=== PATIENT | female | born 1965 | race Caucasian/White ===

== ENCOUNTER 2023-12-31 10:54 | Outpatient (RCR) | payer MEDICAID, SELFPAY ==
--- NOTE | 2023-12-31 14:24 | CTCCONSULT_ITS ---
[facility] [address], [place] [address] Consultation Note Date: 12/31/2023 MR#: [id number] Name: SHEILA LANGE : 1965 Dx: C09.0 Left tonsillar CA. Referring physician. Madie Lopez PA-C [facility] History of Present Illness: Patient is a 58-year-old lady followed by primary care provider at [facility] in [place]. After experiencing throat discomfort and obvious left mass had CT scan 11/09/2023 revealing heterogeneous enhancing node left neck measuring 2.8 x 2.9 x 3.7 cm. There was also soft tissue thickening of the left palatine tonsil measuring 1.6 x 1.3 x 2.5 cm. [place] left tonsil 12/10/2023 revealing HPV associated squamous cell CA. p16 strong and diffuse positive staining. Patient now referred to the cancer [facility] Past Medical History: High blood pressure hypothyroidism history of venereal disease; prior 2 C-secti ons Meds. Atorvastatin levothyroxine lisinopril Allergies none to meds Social history. 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 Family history. Mom had throat and breast cancer and dad had prostate cancer review of review of sys tems has had anxiety easy bruising cold heat intolerance headaches heartburn muscle pain Physical Exam: General: Adequate nourished appearing lady no acute distress HEENT: Atraumatic normocephalic easily visible and palpable tumor left tonsil area approximately 2 x 3 cm. Easily palpable left neck node measuring 3 x 4 cm. No other neck nodes felt in the right neck or supra [place] region. CV: Chest clear to auscultation heart regular rate and rhythm ABD: Soft no organomegaly or tenderness EXT: No cyanosis clubbing or edema. Assessment:1. 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 Although the primary site and the neck mass appears fairly large due to the favorable HPV status this could still be early stage I pending PET scan staging. 3. PET scan for staging 4. Anticipated radiation was discussed generally 7000 cGy to the tumor site using modern VMAT method . Patient has already made contact with dentist about preradiation dental eval. Side effects discus sed. 4. Port for venous access for anticipated chemo. 5. Dr. Antonio, our [facility] medical oncologist to see patient. 6. Patient is in a good nutritional status and G-tube was discussed which she declined for the time being. 7. Thank you very much allowing us to evaluate and manage this patient Cc: Teo Barber PA-C [facility] Electronically signed by: Solomon Mejia MD, DABR 12/31/2023 2:22 PM
--- NOTE | 2024-01-11 08:28 | CTCTXPLN_ITS ---
[facility] [address] [place], [place] [address] Physician Clinical Treatment Planning Note Date of Service: 01/11/2024 Name: SHEILA LANGE : 1965 The patient has agreed to proceed with Radiation therapy. Tests and supporting medical records were interpreted to assist in defining the tumor location and extent of disease. Further imaging will be necessary to contour and delineate the volume to which the XRT will be provided. A. Treatment Intent: Curative B. Modality: 6 MV C. Requested Technique: VMAT D. Treatment Site: Head and neck E. Critical structures to be contoured on plan: F. In order to accomplish this plan, I am ordering/Prescribing the followin. Simulations (s) will be performed to accomplish a reproducible treatment position, to determine op timal treatment portals/beam arrangements, to design beam modifying devices and verify treatment port als on patient prior to the commencement of Radiation Therapy. Head and neck 2. Devices; for immobilization and beam shaping: Vac-Bela 3. CT Guidance for placement of XRT wren Scan area: Head and neck 4. Portal images Frequency: 5. Invivo transit dose measurement once per week on all VMAT patients. 6. Special Physics Consult Requested for: 7. Other requests: Specimens are submitted in chemo and radiation G. Dose Objectives: Curative Electronically signed by: Solomon Mejia M.D. 01/11/2024 8:26 AM
--- NOTE | 2024-01-11 08:30 | CTCTXPLNST_ITS ---
Radiation Oncology Treatment Planning Sheet Name: SHIELA LANGE MR#: [id number] : 1965 Dx: C09.0 Malignant neoplasm of tonsillar fossa Date of Service: 01/11/2024 Account #: ?? Pt Treatment Intent: curative palliative other: Stage: Procedure CPT # Ordered Spec. Procedure 79093 1 Holloway Complex (set-up) 72643 Head and Neck 1 Holloway Simple 85536 IMRT Plan 38998 1 MLC Devices VMAT 78824 3 Holloway 3 D 25070 TRTMT dev Complex 83541 Aqua Plast 1 TRTMT dev simple 40542 Basic Moses 14623 9 Special Dosimetry 77184 Spec Physics 67843 Port Films 67390 SRS Cranial/1FX 56238 SBR 5 FX or Less /ex: 5 = 5 fx 80119 IMRT Simple 63532 7000 35 IMRT Complex 19949 IGRT 89111 33 Rad del com 6-10 99312 Rad del com 11 61934 Cont Med Physics 18142 7 Treatment Planning 67957 1 Rad del com 20 mev 28919 Rad del inter 6-10 55426 Rad del inter 11 76123 Rad del simple 6-10 18197 Rad del simple 11- 55989 Special Port Plan 52339 TRTMT dev inter 58410 Isodose Complex 57137 Isodose simple 42496 Resp Motion Mgmt Simulation 25357 Placement of Fiducial Markers 14559 Electronically Signed By: Solomon Mejia MD, DABR 01/11/2024 8:28 AM
== END 2024-01-16 23:59 | disposition home or self-care (01) ==
LOC: SCTC 10:54
PROVIDERS: PCP Physician Assistant Medical; Referring Provider Physician Assistant Medical; Visit Provider Radiology Therapeutic Radiology
DX: C09.9 Malignant neoplasm of tonsil, unspecified (principal)
CPT/HCPCS: 77470; 99213; G0463

== ENCOUNTER 2024-01-26 05:35 | Day surgery (SDC) | payer MEDICAID, SELFPAY ==
--- NOTE | 2024-01-25 10:01 | EKG_ITS ---
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
[2024-01-25 10:08] VITALS: BMI 35.0
[2024-01-25 11:09] LABS: Basophils # (Auto) 0.1 Thou/mm3 (0.0-0.2); Basophils % (Auto) 1 % (0-2.5); Eosinophils # (Auto) 0.2 Thou/mm3 (0.0-0.5); Eosinophils % (Auto) 2 % (0-10); Hematocrit 44.4 % (36.0-46.0); Hemoglobin 14.9 g/dL (12.0-16.0); Immature Granulocytes % (Auto) 0 % (0-0); Immature Granulocytes Auto 0.05 Thou/mm3 (0.00-0.00); Lymphocytes # (Auto) 3.7 Thou/mm3 (1.0-4.8); Lymphocytes % (Auto) 31 % (10-50); Mean Corpuscular HGB Conc 33.6 g/dl (31.0-37.0); Mean Corpuscular Hemoglobin 30.2 pg (25.0-35.0); Mean Corpuscular Volume 90 fL (80-100); Monocytes % (Auto) 9 % (0-12); Neutrophils # (Auto) 6.9 Thou/mm3 (1.8-7.7); Neutrophils % (Auto) 58 % (37-80); Nucleated Red Blood Cell % 0 /100 WBC (0); Platelet Count 490 Thou/mm3 (140-440); RDW Standard Deviation 40.7 fL (36.4-46.3); Red Blood Count 4.94 Miln/mm3 (4.00-5.20)
[2024-01-25 11:19] LABS: INR 0.9 (0.9-1.3); Partial Thromboplastin Time 26.6 Seconds (22.0-36.0); Prothrombin Time 10.3 Seconds (9.0-12.2)
[2024-01-25 11:22] LABS: Alanine Aminotransferase 30 U/L (10-49); Albumin, Serum 5.2 gm/dL (3.5-5.0); Albumin/Globulin Ratio 1.9 (1.2-2.2); Alkaline Phosphatase 88 U/L (46-116); Anion Gap 9 (7-16); Aspartate Amino Transferase 22 U/L (0-34); BUN/Creatinine Ratio 14 Ratio (12-20); Bilirubin,Total 0.5 mg/dL (0.3-1.2); Blood Urea Nitrogen 11 mg/dL (9-23); Calcium 10.3 mg/dL (8.3-10.6); Calcium (Corrected) 10.3 mg/dL (8.5-10.1); Carbon Dioxide 24.8 mMol/L (20.0-31.0); Chloride 103 mMol/L (98-107); Creatinine (Component) 0.8 mg/dL (0.6-1.3); Estimated Creatinine Clearance 77.5 mL/min (>60); Globulin 2.7 gm/dL (2.3-3.5); Glucose 114 mg/dL (74-106); Osmolality,Calculated 274 (275-295); Potassium 4.5 mMol/L (3.4-5.1); Sodium 137 mMol/L (136-145); Total Protein 7.9 gm/dL (5.7-8.2); eGFR > 60 See Note
--- NOTE | 2024-01-25 15:49 | SUR.PREOP ---
Dr Thompson notified of WBC 12.0, ok to proceed
[2024-01-26] VITALS (7 sets, daily range): BP systolic 117–151; BP diastolic 64–87; PULSE 87–99; RESP 12–18; TEMP 36.3–36.9; O2SAT 96–98; BMI 34.9
--- NOTE | 2024-01-26 07:22 | CHAP ---
Patient seemed very nervous. I spoke with her giving encouragement and comfort and prayer.
--- NOTE | 2024-01-26 07:25 | XR_ITS ---
Examination: AP chest single view Technique one AP portable supine chest single view Exam date and time: January 26, 2024 0908 hours INDICATIONS: Post Port-A-Cath placement FINDINGS: Right subclavian Port-A-Cath tip right atrium satisfactory position No pneumothorax Normal heart size IMPRESSION: Right subclavian Port-A-Cath satisfactory position
--- NOTE | 2024-01-26 09:34 | SUR.PHASEI ---
pt received from OR in recover bay 7. pt asleep but responds to voice, breathing unlabored on room air. v/s stable. pt dressing to right chest cdi. report received from Dr. Carbajal and Helio WEBER.
--- NOTE | 2024-01-26 09:57 | ESOP_ITS ---
Date of Procedure 01/26/24 Pre Op Diagnosis Carcinoma of the tonsils requiring chemotherapy Stricture of veins Post Op Diagnosis Same Procedure Insertion of a Port-A-Cath through the right subclavian vein Findings Patient had a patent subclavian vein which was used for access Procedure Description After the patient was brought to the operating room he was placed in supine position. Site-Rite ultrasound was used to identify the right show swelling subclavian vein and I chose this for insertion of the Port-A-Cath. After the patient's chest and neck were prepped with chloreprep solution and draped I used a mini stick to get into the right subclavian vein. Then I passed a small guidewire measuring 0.018 inch in diameter into the vein. Then this was switched over to a catheter to accommodate larger guidewire measuring 0.035 inches in diameter which was basically a J-wire. Then I used a 9 Belarusian valved vessel dilator over the guidewire which was then pulled out. Then I introduced a 8 Belarusian polyurethane catheter from the [employer] and positioned it on the distal part of the superior vena cava. The catheter tip was about 20 cm from the entry site. An x-ray was obtained to confirm the position of the tip. Then I made a small pocket 5 cm's below the entry site on the left chest below the clavicle to accommodate the port after injecting local anesthesia with 1% Xylocaine. Then I tunneled the polyurethane catheter from the entry site to this pocket in the chest wall and I connected it to low-profile regular port from [facility] profuse using a catheter lock. Excellent blood return was obtained at the end of the procedure and this was flushed with heparinized saline. Then the port was attached to the chest wall muscle using 0 Vicryl sutures. Subcutaneous tissues was closed with 3-0 chromic and the skin by 5-0 nylon stitches. Dressing was applied with Adaptic and 4 x 4 and the patient tolerated the procedure well and left operating room in stable condition. Anesthesia other (General LMA) Pathology / specimen None Estimated Blood Loss 20 Surgeon Renee Corral MD Surgical Staff Operation Date: 01/26/24 08:00 Case Staff Anesthesiologist: Dev Carbajal
--- NOTE | 2024-01-26 10:11 | SUR.PHASEII ---
pt able to tolerate oral fluids without difficulty swallowing or nausea/vomiting.
--- NOTE | 2024-01-26 10:40 | SUR.PHASEII ---
pt awake and alert, breathing unlabored on room air. v/s stable. pt dressing to right chest cdi. pt able to ambulate to wheelchair with steady gait. d/c instructions given with cheri Smith in room, all questions answered. pt d/c via wheelchair with all belongings.
== END 2024-01-26 10:40 | disposition home or self-care (01) ==
PROVIDERS: Family Provider Surgery; PCP Physician Assistant Medical; Referring Provider Surgery; Visit Provider Surgery
PROC: (CPT 36561; principal; 2024-01-26 08:00)
DX: C09.9 Malignant neoplasm of tonsil, unspecified (principal); I87.1 Compression of vein; Z01.810 Encounter for preprocedural cardiovascular examination
CPT/HCPCS: 36561; 36415; 71046; 80053; 85025; 85610; 85730; 93005; A4649; C1788; C1894; J1100; J1643; J2250; J2405; J2704; J3010; J3490; J1644; J1920

== ENCOUNTER → 2024-02-04 | Outpatient (CLI) | payer MEDICAID, SELFPAY | END | disposition home or self-care (01) | PROVIDERS: PCP Physician Assistant Medical; Referring Provider Radiology Therapeutic Radiology; Visit Provider Radiology Therapeutic Radiology | DX: Z53.8 Procedure and treatment not carried out for other reasons (principal) ==

== ENCOUNTER 2024-02-12 10:15 | Outpatient (RCR) | payer MEDICAID, SELFPAY ==
--- NOTE | 2024-01-20 10:25 | CTCCONSULT_ITS ---
[address] [address] RE: SHEILA LANGEO.B.: 1965 AGE: 58 DATE OF CONSULTATION: 01/20/2024 DIAGNOSIS: Malignant neoplasm of tonsillar fossa [ICD10] C09.0 REFERRING PHYSICIAN: Brynn Barber PRIMARY PHYSICIAN : REASON FOR CONSULTATION: New diagnosis of tonsil cancer HISTORY OF PRESENT ILLNESS: Patient is 58-year-old woman who has extensive smoking history. Patient started smoking at the age o f 14 and quit about 20 years ago that is at the age of 39. She was smoking about a pack a day. She endorses at least 2 sexual partners. She also is diagnosed with herpes infection of the vagina area. She has no personal or family history of similar cancer. Her father and mother both had cancers . Her mother had breast cancer and father had prostate cancer. 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 Education Level - Completed High School, Completed High School Marital Status - , Tobacco Pack per Day - 0 Tobacco Use Years - 30, 30 Tobacco Use Note - QUIT SMOKING ETOH Use Note - SOCIAL, OCCASSIONAL SOCIAL DRINKER Drug Note - METH MUSHROOMS LSD, HX METH, LSD, MUSHROOMS USE QUIT YEARS AGO Social History Note 2 - LIVE WITH BROTHER, LIVES WITH BROTHER 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 GI: No nausea, vomiting, diarrhea or constipation. CVS: No palpitations or angina pains. Respiratory: No cough, chest pain or shortness of breath. VITAL SIGNS: Date 01/20/2024 Time 9:31 AM Vital Signs, Weight and PS ? ??T (F) (F) 98.8 ??P 88 ??B/P (mmHg) 140/96 ??Height (in) (inch) 63 ??Weight (lb) (lb) 190 ??BSA(D) (m*2) 1.89 ??Percent Weight Change -1 PHYSICAL EXAMINATION: Conjunctivae is white. Oral cavity is dry. Chest is clear to auscultation. No wheezes or rales audible. CVS: Rhythm regular, no murmurs or gallops present. Abdomen is soft. No hepatosplenomegaly. Extremities: No pedal edema or cyanosis. LABORATORY DATA: Date Time ASSESSMENT: Head and neck cancer Patient has tumor in the tonsils as well as involvement of the left lymph node Not a surgical candidate Patient will need treatment with concurrent chemoradiation Patient's other comorbidities include hypertension dyslipidemia and hypothyroidism. Patient also is obese. Patient do not have major dental problems but have few cavities. Patient already seen dentist and do not need any further workup before radiation. She had decided not to get PEG tube. She is already scheduled for port catheter as well as PET CT scan Patient do not have any hearing problems at the baseline PLAN: ?? High dose cisplatin with concurrent radiation for definitive treatment - Audiometry - Iv fluids - Magnesium oxide 400 mg po daily - - magic mouth wash - RTC before 1 st chemo ORDERS: Comprehensive Metabolic Panel - 12 + CBC with Auto Diff + RETURN TO CLINIC: cc: PCP, Referring: Brynn Barber Electronically Signed 01/20/2024 at 10:22 AM Keo Antonio MD Patient: SHEILA LANGE : 1965 MR#: [id number] Account: [id number] FOLLOW UP NOTE Page 4 of 4
== END 2024-02-16 23:59 | disposition home or self-care (01) ==
LOC: SCTC 10:15
PROVIDERS: PCP Physician Assistant Medical; Referring Provider Physician Assistant Medical; Visit Provider Internal Medicine Hematology & Oncology
DX: C09.0 Malignant neoplasm of tonsillar fossa (principal); I10 Essential (primary) hypertension; E78.5 Hyperlipidemia, unspecified; E03.9 Hypothyroidism, unspecified; E66.9 Obesity, unspecified; Z68.33 Body mass index [BMI] 33.0-33.9, adult; Z87.891 Personal history of nicotine dependence; Z80.3 Family history of malignant neoplasm of breast; Z80.42 Family history of malignant neoplasm of prostate
CPT/HCPCS: 77014; 77290; 77334; 99213; G0463

== ENCOUNTER → 2024-02-18 | Outpatient (CLI) | payer MEDICAID, SELFPAY ==
--- NOTE | 2024-02-18 08:45 | XR_ITS ---
EXAMINATION: PET/CT FUSION SKULL TO THIGH EXAM DATE AND TIME: February 18, 2024 0946 hours INDICATIONS: Diagnosis head and neck cancer diagnosis staging prior to treatment CTDI:vol (mGy) 8.23 DLP: (mGycm) 853.5 PROCEDURE: 15.06 mCi FDG was administered intravenously To allow for distribution and uptake of radiotracer, the patient was allowed to rest quietly in a shielded room. Imaging was performed on an integrated 16-slice PET/CT scanner, with scanning from the skull base to the mid thigh. Serum blood glucose at the time of the injection was measured 122 mg/dL. CT scanning was performed without oral or intravenous contrast material. FINDINGS: Head and Neck: 20 x 22 mm hypermetabolic mass left oropharynx image 60 Hypermetabolic lateral left carotid triangle lymph node mass 30 mm Chest: There is no rachel hypermetabolism in the chest. There are no pulmonary nodules. Abdomen and Pelvis: There is no rachel hypermetabolism in retroperitoneal or pelvic chains. The spleen is normal in size and FDG avidity. Musculoskeletal: Marrow uptake is within normal range. IMPRESSION: 20 x 22 mm hypermetabolic left oropharyngeal mass Hypermetabolic lateral left carotid triangle metastatic lymph node mass, 30 mm
== END | disposition home or self-care (01) ==
PROVIDERS: PCP Physician Assistant Medical; Referring Provider Radiology Therapeutic Radiology; Visit Provider Radiology Therapeutic Radiology
DX: R22.0 Localized swelling, mass and lump, head (principal); C77.9 Secondary and unspecified malignant neoplasm of lymph node, unspecified; C09.0 Malignant neoplasm of tonsillar fossa
CPT/HCPCS: 78815; A9552

== ENCOUNTER 2024-03-16 17:33 | Emergency (ER) | payer MEDICAID, SELFPAY ==
[2024-03-16 18:13] VITALS: BP 116/84; PULSE 120; RESP 18; TEMP 37.3; O2SAT 96; BMI 32.7
--- NOTE | 2024-03-16 18:22 | EKG_ITS ---
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: : 1965 Requested By: Cristobal Bragg Order Number: [id number] Reading MD: Cristobal Bragg Measurements Intervals [place] Rate: 112 P: 65 PA: 136 QRS: 75 QRSD: 88 T: 19 QT: 328 QTc: 448 Interpretive Statements SINUS TACHYCARDIA POSSIBLE RIGHT VENTRICULAR CONDUCTION DELAY [RSR (QR) IN V1/V2] ST DEVIATION AND MODERATE T-WAVE ABNORMALITY, CONSIDER ANTERIOR ISCHEMIA [-0.1+ mV T WAVE IN V3/V4] Compared to ECG 01/25/2024 10:36:56 T-wave abnormality now present Possible ischemia now present Sinus rhythm no longer present Sinus arrhythmia no longer present /store/S0/[id number]/ecg/[id number].pdf
--- NOTE | 2024-03-16 18:23 | PD.EDRME ---
Rapid Medical Screening Exam RME Arrival date/time: 03/16/24 17:33 58F with history of cancer (has port), hypothyroidism, and HTN presents to ED with unexplained tachycardia. Patient had outpatient labs done earlier today with mildly elevated D-dimer and was sent by oncologist to r/o PE. Patient has no complaints. Chief Complaint: General Adult/Misc Complain Vital signs: Vital Signs Temperature 99.2 F 03/16/24 18:13 Pulse Rate 120 H 03/16/24 18:13 Respiratory Rate 18 03/16/24 18:13 Blood Pressure 116/84 03/16/24 18:13 Pulse Oximetry (%) 96 03/16/24 18:13 Oxygen Delivery Method Room Air 03/16/24 18:13
[2024-03-16 19:01] LABS: Collection Type, Urine Clean Catch
[2024-03-16 19:11] LABS: Bacteria,Urine Rare; Bilirubin,Urine Negative (Negative); Blood,Urine Negative (Negative); Clarity,Urine Turbid (Clear/Hazy); Color,Urine Lt-Yellow (Lt Yel-Yel); Culture Indicated,Urine Yes; Glucose, Urine Negative (Negative); Ketones,Urine Trace (Negative); Leukocyte Esterase,Urine Positive (Negative); Nitrite,Urine Negative (Negative); PH,Urine 6.5 (5.0-7.0); Protein,Urine Trace (Neg - Trace); RBC,Urine 1 /hpf (0-3); Specific Gravity,Urine 1.008 (1.001-1.035); Squamous Epithelial Cell,Urine 8 /hpf (0-5); Urobilinogen,Urine Negative mg/dL (0.0-1.0); WBC,Urine 13 /hpf (0-5)
--- NOTE | 2024-03-16 19:51 | XR_ITS ---
Examination: CTA chest with intravenous contrast 2-D reconstructions 3-D reconstructions, vascular Date and time of exam: March 16, 2024 1938 hours INDICATIONS: Diagnosis tonsil carcinoma October 2023 undergoing chemotherapy, onset shortness of breath chest pain today with elevated d-dimer CTDI: vol (mGy) 11.7 DLP: (mGycm) 323 Technique: Multiple axial sections of the thorax have been obtained. 3 mm slice thickness, from below the hemidiaphragms to above the apices of the lungs. Mediastinal and lung density settings have been obtained. 2-D sagittal and coronal reconstructions. 3-D angiographic renderings, 3-D volume renderings, 3D post processing, vascular maximum intensity projections obtained. Contrast administered is 100 cc Isovue-370. Low dose protocols were performed. One or more of the following dose reduction techniques were used; automated exposure control, adjustment of the mA and/or KV according to patient size, use of iterative reconstruction technique. Findings: No thoracic aortic aneurysm dilatation or dissection. Pulmonary artery segments are not enlarged. No pulmonary artery emboli 10 mm pulmonary nodule right lower lobe image 185. No pneumonia or pulmonary edema No visualized liver splenic lesion No gallstones No pancreatic mass Moderate bilateral renal parenchymal scar formation. 4 mm upper pole left renal calculus Moderate thoracic spondylosis IMPRESSION: Negative for pulmonary artery emboli 10 mm pulmonary nodule right lower lobe, with the study as baseline recommend 6 month follow-up CT chest without contrast
[2024-03-16 21:01] LABS: Thyroid Stimulating Hormone 0.65 uIU/mL (0.55-4.78); Troponin I < 0.020 ng/mL (0.0-0.045)
[2024-03-16 21:02] LABS: Amphetamine/Methamp Scrn,U Negative (Negative); Barbiturate Screen,Urine Negative (Negative); Benzodiazepines Screen,Urine Negative (Negative); Benzoylecgonine Screen, Ur Negative (Negative); Fentanyl Screen,Urine Negative (Negative); Opiate Screen,Urine Negative (Negative); THC Screen,Urine Positive (Negative)
[2024-03-16 21:14] LABS: Procalcitonin 0.08 ng/ml (0.0-0.49)
--- NOTE | 2024-03-16 22:13 | PD.EDADULT ---
ED General RME/HPI General Chief complaint: General Adult/Misc Complain Stated complaint: d- dimer 783 ng/ml, r/o dvt, sent by oncologist Time Seen by Provider: 03/16/24 21:54 Arrival date/time: 03/16/24 17:33 RME / HPI RME / HPI narrative: 58F with history of throat cancer (has port), hypothyroidism, and HTN presents to ED with unexplained tachycardia. Patient had outpatient labs done earlier today with mildly elevated D-dimer and was sent by oncologist to r/o PE. Patient has no complaints. No medication was given prior to arrival. Related Data Home Medications ?Medication ?Instructions ?Recorded ?Confirmed atorvastatin 10 mg tablet 10 mg PO QDAY 01/25/24 01/26/24 levothyroxine 150 mcg tablet 150 mcg PO QDAY 01/25/24 01/26/24 lisinopril 30 mg tablet 30 mg PO QDAY 01/25/24 01/26/24 magnesium oxide 420 mg tablet 420 mg PO BID 01/25/24 01/25/24 Allergies Allergy/AdvReac Type Severity Reaction Status Date / Time No Known Allergies Allergy Verified 03/16/24 17:34 Review of Systems Review of Systems Narrative Review of Systems: Review of system reviewed and within normal limits except mentioned in HPI ED Exam Narrative Physical exam: VITAL SIGNS: Reviewed. GENERAL APPEARANCE: Alert and interactive, follows commands, no acute distress, HEAD AND FACE: Non-traumatic. ENT: PERRL, pink conjunctivitis, eyelid no trauma, Mucous membrane moist. NECK: Supple, nontender, no nuchal rigidity. CHEST: No tenderness, no crepitus, no paradoxical movement, no retractions. LUNGS: Clear, well ventilated, symmetric, no rales, no wheezing, no ronchi, no stridor, good breath sounds bilaterally. HEART: Regular rate, regular rhythm, no murmur, no gallops. ABDOMEN: Soft, positive bowel sounds, nondistended, no guarding, nontender, no rebound, no masses, RECTAL: Deferred. GENITAL: Deferred. NEUROLOGICAL: Gross motor function intact sensory function intact, Appropriate for age. MUSCULOSKELETAL: low back nontender, full range of motion. EXTREMITIES: Nontender, full range of motion. SKIN: Color pink, dry, no rash, no lacerations, no abrasions, no contusions. LYMPHATICS: Deferred. Course Quality Measures none Orders Category Date Time Status Bedside COVID-19 Antigen Test NOW Care 03/16/24 18:22 Active Bedside Influenza A&B Antigen Test NOW Care 03/16/24 18:[address] Screening NOW Care 03/16/24 18:22 Active EKG (ED ONLY) *Do not use* NOW Care 03/16/24 18:22 Completed Insert IV NOW Care 03/16/24 19:[address] angio chest Stat Exams 03/16/24 19:51 Completed EKG (ED Only) Stat Exams 03/16/24 18:22 Draft Drug Screen,Urine Stat Lab 03/16/24 18:20 Completed Procalcitonin Stat Lab 03/16/24 18:47 Completed TSH [Thyroid Stimulating Hormone] Stat Lab 03/16/24 18:47 Completed Troponin I Stat Lab 03/16/24 18:47 Completed Urinalysis, C/S if Indicated Stat Lab 03/16/24 18:20 Completed Urine Culture Stat Lab 03/16/24 18:20 Received Vital Signs Vital signs: Vital Signs Temperature 99.2 F 03/16/24 18:13 Pulse Rate 120 H 03/16/24 18:13 Respiratory Rate 18 03/16/24 18:13 Blood Pressure 116/84 03/16/24 18:13 Pulse Oximetry (%) 96 03/16/24 18:13 Oxygen Delivery Method Room Air 03/16/24 18:13 MDM Patient data External records reviewed:: None Clinical information provided by:: patient Social determinants that could affect healthcare access:: none Patient has the following chronic illnesses:: Hypertension, hypothyroidism, history of throat cancer How is presenting disease/condition affected by chronic disease/condition?: no chronic disease Evaluation data The following diagnostics were reviewed and interpreted by me:: lab results, radiology exam(s) and EKG tracing(s) Lab and/or radiology exams considered but not ordered:: None Interpretation Summary: See results in MDM Medications Medications considered but not ordered:: None Medication administrations:: None Consultations Consultation(s) initiated? (list below): No Diagnosis Differential Diagnosis ED Complaint MDM: Tachycardia, PE, elevated D-dimer Most likely diagnosis given after review of the tests above:: Tachycardia Admission Indicated Admission indicated?: not indicated Explain why admission is indicated or not indicated:: Stable Admission Request Was there a request for admission?: No Disposition Plan Disposition Plan: Discharge Discharge Attestation Discharge Attestation: The patient was given an opportunity to ask questions and understood the discharge instructions. Discharge instructions specifically effects, indications for sooner follow up or return to the emergency department, and the expected course of current diagnosis. Patient condition: Stable Medical Decision Making MDM Narrative MDM Narrative: 58F with history of throat cancer (has port), hypothyroidism, and HTN presents to ED with unexplained tachycardia. Patient had outpatient labs done earlier today with mildly elevated D-dimer and was sent by oncologist to r/o PE. Patient has no complaints. No medication was given prior to arrival. Laboratory workup all came back unremarkable except for slightly elevated D-dimer. Patient tested positive for marijuana. Urinalysis is dirty collection. CT of the chest came back with no PE however there is incidental finding of pulmonary nodule. Results discussed with the patient and told her to follow-up closely with PCP or oncologist. Patient agrees with the plan. EKG, showed sinus tachycardia, ventricular rate of 112 bpm, no ST segment elevation depression noted. Differential Diagnosis Differential Diagnosis: Tachycardia, PE, elevated D-dimer Lab Data Labs: Lab Results 03/16/24 03/16/24 Range/Units 18:20 18:47 Troponin I < 0.020 (0.0-0.045) ng/mL Procalcitonin 0.08 (0.0-0.49) ng/ml TSH 0.65 (0.55-4.78) uIU/mL Ur Collection Type Clean Catch Urine Color Lt-Yellow (Lt Yel-Yel) Urine Clarity Turbid A (Clear/Hazy) Urine pH 6.5 (5.0-7.0) Ur Specific [place] 1.008 (1.001-1.035) Urine Protein Trace (Neg - Trace) Urine Glucose (UA) Negative (Negative) Urine Ketones Trace (Negative) Urine Blood Negative (Negative) Urine Nitrite Negative (Negative) Urine Bilirubin Negative (Negative) Urine Urobilinogen (Auto) Negative (0.0-1.0) mg/dL Ur Leukocyte Esterase Positive (Negative) Urine RBC 1 (0-3) /hpf Urine WBC 13 H (0-5) /hpf Ur Squamous Epith Cells 8 H (0-5) /hpf Urine Bacteria Rare (None) Ur Culture Indicated? Yes Urine Opiates Screen Negative (Negative) Urine Fentanyl Screen Negative (Negative) Ur Barbiturates Screen Negative (Negative) U Amphetamin/Meth Scrn Negative (Negative) U Benzodiazepines Scrn Negative (Negative) U Cocaine Metab Screen Negative (Negative) U Marijuana (THC) Screen Positive A (Negative) Discharge Plan Plan Patient Disposition: HOME (Self Care) Disposition Comment: Stable Prescriptions/Referrals Prescriptions/Med Rec: No Action magnesium oxide 420 mg Tablet 420 mg PO BID atorvastatin 10 mg Tablet 10 mg PO QDAY levothyroxine 150 mcg Tablet 150 mcg PO QDAY lisinopril 30 mg Tablet 30 mg PO QDAY Referrals: Brynn Barber PA-C [Primary Care Provider] - In 1 week Problem List Clinical Impression: Tachycardia Patient/Caregiver Discharge Instructions Discharge Activity: activity as tolerated Education Materials: Understanding Tachycardia Additional Instructions: Thank you for the opportunity for serving you today. You are stable for discharged . You are advised to: Follow-up with your PCP in 1 to 2 days and asked for repeat CT scan of the chest after 6 months Return to ED for worsening of symptoms Increase oral fluids Take medication as prescribed Print Language: Turkmen Stand Alone Forms: [facility] Award Info., Patient Portal Info Letter
== END 2024-03-16 22:26 | disposition home or self-care (01) ==
PROVIDERS: Physician Assistant; Emergency Provider Emergency Medicine; PCP Physician Assistant Medical
DX: R00.0 Tachycardia, unspecified (principal); R91.1 Solitary pulmonary nodule; R79.89 Other specified abnormal findings of blood chemistry; I10 Essential (primary) hypertension; Z11.52 Encounter for screening for COVID-19
CPT/HCPCS: 36415; 71275; 80307; 81001; 84145; 84443; 84484; 87086; 87400; 87811; 93005; 99285; A4649; Q9967

== ENCOUNTER 2024-03-18 08:27 | Outpatient (RCR) | payer MEDICAID, SELFPAY ==
[2024-02-26 10:27] LABS: Basophils % (Auto) 1 % (0-2.5); Eosinophils # (Auto) 0.3 Thou/mm3 (0.0-0.5); Eosinophils % (Auto) 3 % (0-10); Hematocrit 37.3 % (36.0-46.0); Hemoglobin 12.7 g/dL (12.0-16.0); Immature Granulocytes % (Auto) 0 % (0-0); Immature Granulocytes Auto 0.02 Thou/mm3 (0.00-0.00); Lymphocytes % (Auto) 36 % (10-50); Mean Corpuscular Hemoglobin 29.8 pg (25.0-35.0); Mean Corpuscular Volume 88 fL (80-100); Monocytes # (Auto) 0.7 Thou/mm3 (0.0-0.8); Monocytes % (Auto) 8 % (0-12); Neutrophils # (Auto) 4.4 Thou/mm3 (1.8-7.7); Neutrophils % (Auto) 52 % (37-80); Nucleated Red Blood Cell % 0 /100 WBC (0); Platelet Count 295 Thou/mm3 (140-440); RDW Standard Deviation 39.9 fL (36.4-46.3); Red Blood Count 4.26 Miln/mm3 (4.00-5.20); White Blood Count 8.5 Thou/mm3 (3.6-11.0)
[2024-02-26 10:49] LABS: Alanine Aminotransferase 19 U/L (10-49); Albumin, Serum 4.5 gm/dL (3.5-5.0); Albumin/Globulin Ratio 1.8 (1.2-2.2); Alkaline Phosphatase 82 U/L (46-116); Anion Gap 8 (7-16); Aspartate Amino Transferase 16 U/L (0-34); BUN/Creatinine Ratio 17 Ratio (12-20); Bilirubin,Total 0.4 mg/dL (0.3-1.2); Blood Urea Nitrogen 12 mg/dL (9-23); Calcium 9.3 mg/dL (8.3-10.6); Calcium (Corrected) 9.3 mg/dL (8.5-10.1); Carbon Dioxide 23.5 mMol/L (20.0-31.0); Chloride 107 mMol/L (98-107); Creatinine (Component) 0.7 mg/dL (0.6-1.3); Globulin 2.5 gm/dL (2.3-3.5); Glucose 105 mg/dL (74-106); Osmolality,Calculated 275 (275-295); Potassium 3.8 mMol/L (3.4-5.1); Sodium 138 mMol/L (136-145); eGFR > 60 See Note
[2024-03-16 16:16] LABS: Basophils % (Auto) 1 % (0-2.5); Eosinophils # (Auto) 0.1 Thou/mm3 (0.0-0.5); Eosinophils % (Auto) 1 % (0-10); Hematocrit 37.1 % (36.0-46.0); Hemoglobin 12.6 g/dL (12.0-16.0); Immature Granulocytes % (Auto) 0 % (0-0); Immature Granulocytes Auto 0.01 Thou/mm3 (0.00-0.00); Lymphocytes # (Auto) 2.1 Thou/mm3 (1.0-4.8); Lymphocytes % (Auto) 28 % (10-50); Mean Corpuscular Hemoglobin 30.2 pg (25.0-35.0); Mean Corpuscular Volume 89 fL (80-100); Monocytes # (Auto) 0.7 Thou/mm3 (0.0-0.8); Monocytes % (Auto) 10 % (0-12); Neutrophils # (Auto) 4.5 Thou/mm3 (1.8-7.7); Neutrophils % (Auto) 61 % (37-80); Nucleated Red Blood Cell % 0 /100 WBC (0); Platelet Count 325 Thou/mm3 (140-440); RDW Standard Deviation 41.7 fL (36.4-46.3); Red Blood Count 4.17 Miln/mm3 (4.00-5.20); White Blood Count 7.4 Thou/mm3 (3.6-11.0)
[2024-03-16 16:33] LABS: D-Dimer 783 ng/mL (<600)
[2024-03-16 16:48] LABS: Alanine Aminotransferase 24 U/L (10-49); Albumin, Serum 4.8 gm/dL (3.5-5.0); Albumin/Globulin Ratio 2.3 (1.2-2.2); Alkaline Phosphatase 83 U/L (46-116); Anion Gap 10 (7-16); Aspartate Amino Transferase 18 U/L (0-34); BUN/Creatinine Ratio 17 Ratio (12-20); Bilirubin,Total 0.4 mg/dL (0.3-1.2); Blood Urea Nitrogen 15 mg/dL (9-23); Calcium 9.5 mg/dL (8.3-10.6); Calcium (Corrected) 9.5 mg/dL (8.5-10.1); Carbon Dioxide 23.2 mMol/L (20.0-31.0); Chloride 103 mMol/L (98-107); Creatinine (Component) 0.9 mg/dL (0.6-1.3); Globulin 2.1 gm/dL (2.3-3.5); Glucose 106 mg/dL (74-106); Osmolality,Calculated 272 (275-295); Potassium 3.8 mMol/L (3.4-5.1); Sodium 136 mMol/L (136-145); Total Protein 6.9 gm/dL (5.7-8.2); eGFR > 60 See Note
[2024-03-18 09:12] LABS: Basophils % (Auto) 1 % (0-2.5); Eosinophils # (Auto) 0.1 Thou/mm3 (0.0-0.5); Eosinophils % (Auto) 2 % (0-10); Hematocrit 34.3 % (36.0-46.0); Hemoglobin 11.6 g/dL (12.0-16.0); Immature Granulocytes % (Auto) 0 % (0-0); Immature Granulocytes Auto 0.01 Thou/mm3 (0.00-0.00); Lymphocytes # (Auto) 1.3 Thou/mm3 (1.0-4.8); Lymphocytes % (Auto) 31 % (10-50); Mean Corpuscular HGB Conc 33.8 g/dl (31.0-37.0); Mean Corpuscular Hemoglobin 30.5 pg (25.0-35.0); Mean Corpuscular Volume 90 fL (80-100); Monocytes # (Auto) 0.5 Thou/mm3 (0.0-0.8); Monocytes % (Auto) 11 % (0-12); Neutrophils # (Auto) 2.3 Thou/mm3 (1.8-7.7); Neutrophils % (Auto) 55 % (37-80); Nucleated Red Blood Cell % 0 /100 WBC (0); Platelet Count 280 Thou/mm3 (140-440); RDW Standard Deviation 41.9 fL (36.4-46.3); White Blood Count 4.1 Thou/mm3 (3.6-11.0)
[2024-03-18 09:39] LABS: Magnesium 1.8 mg/dL (1.6-2.6)
[2024-03-18 09:43] LABS: Alanine Aminotransferase 21 U/L (10-49); Albumin, Serum 4.2 gm/dL (3.5-5.0); Albumin/Globulin Ratio 1.8 (1.2-2.2); Alkaline Phosphatase 73 U/L (46-116); Anion Gap 9 (7-16); Aspartate Amino Transferase 17 U/L (0-34); BUN/Creatinine Ratio 13 Ratio (12-20); Bilirubin,Total 0.5 mg/dL (0.3-1.2); Blood Urea Nitrogen 10 mg/dL (9-23); Calcium 9.1 mg/dL (8.3-10.6); Calcium (Corrected) 9.1 mg/dL (8.5-10.1); Carbon Dioxide 23.9 mMol/L (20.0-31.0); Chloride 109 mMol/L (98-107); Creatinine (Component) 0.8 mg/dL (0.6-1.3); Globulin 2.3 gm/dL (2.3-3.5); Glucose 98 mg/dL (74-106); Osmolality,Calculated 282 (275-295); Potassium 3.5 mMol/L (3.4-5.1); Sodium 142 mMol/L (136-145); Total Protein 6.5 gm/dL (5.7-8.2); eGFR > 60 See Note
--- NOTE | 2024-03-20 21:29 | CTCFLWUP_ITS ---
Patient: SHEILA LANGE : 1965 Page 3 of 5 FOLLOW UP NOTE DATE OF SERVICE: 03/16/2024 NAME: SHEILA LANGE ACCOUNT: [id number] : 1965 AGE: 58 INTERVAL HISTORY: Patient is here getting radiation. Patient is feeling very fatigued and tired. Denies any shortness of breath. Patient had hearing test which was mild hearing loss. 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 30 mm TREATMENT HISTORY: Care?Plan Start?Date Cycle Day Intent CISplatin?100mg/m*2?with?XRT 02/29/2024 1 21 Curative?(primary) HISTORY OF PRESENT ILLNESS: Patient is 58-year-old woman who has extensive smoking history. Patient started smoking at the age of 14 and quit about 20 years ago that is at the age of 39. She was smoking about a pack a day. She endorses at least 2 sexual partners. She also is diagnosed with herpes infection of the vagina area. She has no personal or family history of similar cancer. Her father and mother both had cancers . Her mother had breast cancer and father had prostate cancer. 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 Advil - 600 mg 2. atorvastatin - 10 mg Daily 3. levothyroxine - 150 mcg/24 h Daily 4. lisinopril - 30 mg Daily 5. traZODone - 100 mg tab Medications Last Reconciled by Sonia Figueroa MA on 03/16/2024 ALLERGIES: No Known Drug Allergies REVIEW OF SYSTEMS: A complete 14-point review of systems was performed and is negative except as noted in interval history. PHYSICAL EXAMINATION: VITAL SIGNS: Temperature?98.8, B/P?131/85, Oxygen?Saturation?98% Weight?179.8?lbs (Change?since?03/14/24:?-5.2?lbs) PAIN: 0 - No pain ECOG Performance Status: 1 - Symptomatic; ambulatory; restricted in strenuous activity GENERAL APPEARANCE: Appears well, in no apparent distress, appropriately interactive. HEENT: Normocephalic, no temporal wasting, normal conjunctiva, no scleral icterus, normal hearing, lips without lesions, neck normal range of motion. CARDIOVASCULAR: Not assessed. PULMONARY: Normal respiratory effort, no respiratory distress or use of accessory muscles, speaking in full sentences, no tachypnea. EXTREMITIES: No pedal edema or cyanosis. SKIN: Normal skin appearance. NEUROLOGIC: Alert and oriented x4. PSHYCHIATRIC: Appropriate affect, mood normal, behavior normal, intact thought and speech. LABORATORY DATA: I have personally reviewed and interpreted each of the patient?s relevant lab tests, abnormal findings are below: Date 03/18/24 ??WHITE?BLOOD?COUNT?(Thou/mm3) 4.1 ??RED?BLOOD?COUNT?(Miln/mm3) 3.80?L ??HEMOGLOBIN?(gm/dl) 11.6?L ??HEMATOCRIT?(%) 34.3?L ??PLATELET?COUNT?(Thou/mm3) 280 ??NEUTROPHILS?%,?AUTO?(%) 55 ??LYMPH?%,?AUTO?(%) 31 ??NEUTROPHILS,?AUTO?(Thou/mm3) 2.3 ASSESSMENT/PLAN: Head and neck cancer Patient has tumor in the tonsils as well as involvement of the left lymph node Not a surgical candidate Patient on concurrent chemoradiation Patient found to be very tachycardic - Reviewed audiometry and shows mild to moderate hearing loss - Will give IV fluids and order D-dimer - D-dimer is found to be elevated at 783. Patient was seen in the ER and had CT angiogram which did not show any blood clots - Will continue IV fluids with radiation - Magnesium oxide 400 mg po daily - - magic mouth wash CBC CMP D-dimer RETURN TO CLINIC: 2 to 4 weeks BILLING AND COMPLIANCE: I reviewed external records from providers outside my specialty as summarized above. I spent a total of 50 minutes on this patient?s care on the day of their visit excluding time spent related to any billed procedures. This time includes time spent with the patient as well as time spent documenting in the medical record, reviewing patients records and tests, obtaining history, placing orders, communicating with other healthcare professionals, counseling the patient, family or caregiver, and/or care coordination for the diagnoses above. Electronically Signed by: Keo Antonio MD T: 9:26 PM CC: PCP: Brynn Barber Referring: Brynn Barber This document was completed utilizing speech recognition software. Grammatical errors, random word insertions, pronoun errors, and incomplete sentences are an occasional consequence of this system due to software limitations, ambient noise, and hardware issues. Any formal questions or concerns about the content, text or information contained within the body of this dictation should be directly addressed to the provider for clarification.
== END 2024-03-18 23:59 | disposition home or self-care (01) ==
LOC: SCTC 08:27
PROVIDERS: PCP Physician Assistant Medical; Referring Provider Physician Assistant Medical; Visit Provider Internal Medicine Hematology & Oncology
DX: Z51.11 Encounter for antineoplastic chemotherapy (principal); C09.9 Malignant neoplasm of tonsil, unspecified; K12.33 Oral mucositis (ulcerative) due to radiation; Y84.2 Radiological procedure and radiotherapy as the cause of abnormal reaction of the patient, or of later complication, without mention of misadventure at the time of the procedure; R00.0 Tachycardia, unspecified; H91.90 Unspecified hearing loss, unspecified ear; R79.1 Abnormal coagulation profile
CPT/HCPCS: 36591; 77300; 77301; 77336; 77338; 77385; 80053; 83735; 85025; 85379; 96360; 96367; 96368; 96375; 96413; 96415; 99212; A4216; J1100; J1200; J1453; J1642; J1940; J2405; J3475; J3480; J3490; J7030; J7040; J7050; J9060; G0463

== ENCOUNTER 2024-04-15 07:55 | Outpatient (RCR) | payer MEDICAID, SELFPAY ==
--- NOTE | 2024-03-21 08:46 | CTCTRTNOTE_ITS ---
[facility] [address] [place], [place] [address] Weekly Management Date: 03/21/2024 ?? Name: SHEILA LANGE : 1965 A. Patient is currently at 1755 cGy. B. Patient was on rest last week due to mucositis symptoms. C. Patient is feeling better this a.m ready to resume XRT with chemo.. D. Weight 180.2 116/81 blood pressure pulse 107 patient given following medications: . Minimal mucositis noted in the mouth today. E. . F. Resume radiation therapy. Patient has about 4 more weeks of radiation left. Electronically signed by: Solomon Mejia M.D. 03/21/2024 8:43 AM
--- NOTE | 2024-03-28 12:28 | CTCTRTNOTE_ITS ---
[facility] [address] [place], [place] [address] Weekly Management Date: 03/28/2024 ?? Name: SHEILA LANGE : 1965 A. Patient is currently at 2730cGy. Getting concurrent cisplatin. Last chemo dose 03/21/2024. Last radiation treatment Thursday. B. Last labs 03/18/2024 WBC 4.1 hemoglobin 11.6 platelets 2 80,000. C. Unable to be seen or treated today because of complaints of difficulty swallowing and mucositis symptoms.. Reportedly will go to ER for possible admission. Electronically signed by: Solomon Mejia M.D. 03/28/2024 12:25 PM
[2024-04-08 09:25] LABS: Basophils % (Auto) 0 % (0-2.5); Eosinophils # (Auto) 0.1 Thou/mm3 (0.0-0.5); Eosinophils % (Auto) 5 % (0-10); Hematocrit 31.7 % (36.0-46.0); Hemoglobin 11.3 g/dL (12.0-16.0); Immature Granulocytes % (Auto) 0 % (0-0); Immature Granulocytes Auto 0.01 Thou/mm3 (0.00-0.00); Lymphocytes # (Auto) 0.8 Thou/mm3 (1.0-4.8); Lymphocytes % (Auto) 31 % (10-50); Mean Corpuscular HGB Conc 35.6 g/dl (31.0-37.0); Mean Corpuscular Hemoglobin 31.5 pg (25.0-35.0); Mean Corpuscular Volume 88 fL (80-100); Monocytes # (Auto) 0.4 Thou/mm3 (0.0-0.8); Monocytes % (Auto) 14 % (0-12); Neutrophils # (Auto) 1.3 Thou/mm3 (1.8-7.7); Neutrophils % (Auto) 50 % (37-80); Nucleated Red Blood Cell % 0 /100 WBC (0); Platelet Count 230 Thou/mm3 (140-440); RDW Standard Deviation 43.7 fL (36.4-46.3); Red Blood Count 3.59 Miln/mm3 (4.00-5.20)
[2024-04-08 09:41] LABS: White Blood Count 2.6 Thou/mm3 (3.6-11.0)
[2024-04-08 09:44] LABS: Alanine Aminotransferase 27 U/L (10-49); Albumin, Serum 4.3 gm/dL (3.5-5.0); Alkaline Phosphatase 80 U/L (46-116); Anion Gap 11 (7-16); Aspartate Amino Transferase 23 U/L (0-34); BUN/Creatinine Ratio 11 Ratio (12-20); Bilirubin,Total 0.5 mg/dL (0.3-1.2); Blood Urea Nitrogen 13 mg/dL (9-23); Calcium 9.4 mg/dL (8.3-10.6); Calcium (Corrected) 9.4 mg/dL (8.5-10.1); Carbon Dioxide 21.4 mMol/L (20.0-31.0); Chloride 109 mMol/L (98-107); Creatinine (Component) 1.2 mg/dL (0.6-1.3); Globulin 2.2 gm/dL (2.3-3.5); Glucose 109 mg/dL (74-106); Magnesium 1.6 mg/dL (1.6-2.6); Osmolality,Calculated 282 (275-295); Sodium 141 mMol/L (136-145); Total Protein 6.5 gm/dL (5.7-8.2); eGFR 52 See Note
[2024-04-11 08:46] LABS: Basophils % (Auto) 1 % (0-2.5); Eosinophils # (Auto) 0.1 Thou/mm3 (0.0-0.5); Eosinophils % (Auto) 4 % (0-10); Hemoglobin 11.1 g/dL (12.0-16.0); Immature Granulocytes % (Auto) 0 % (0-0); Immature Granulocytes Auto 0.01 Thou/mm3 (0.00-0.00); Lymphocytes # (Auto) 0.9 Thou/mm3 (1.0-4.8); Lymphocytes % (Auto) 37 % (10-50); Mean Corpuscular HGB Conc 34.7 g/dl (31.0-37.0); Mean Corpuscular Hemoglobin 30.7 pg (25.0-35.0); Mean Corpuscular Volume 89 fL (80-100); Monocytes # (Auto) 0.4 Thou/mm3 (0.0-0.8); Monocytes % (Auto) 17 % (0-12); Neutrophils # (Auto) 0.9 Thou/mm3 (1.8-7.7); Neutrophils % (Auto) 40 % (37-80); Nucleated Red Blood Cell % 0 /100 WBC (0); Platelet Count 252 Thou/mm3 (140-440); RDW Standard Deviation 45.9 fL (36.4-46.3); Red Blood Count 3.61 Miln/mm3 (4.00-5.20)
[2024-04-11 08:55] LABS: White Blood Count 2.3 Thou/mm3 (3.6-11.0)
[2024-04-11 15:26] LABS: Path Review Blood Smear Sent to Pathologist
[2024-04-15 08:56] LABS: Basophils % (Auto) 1 % (0-2.5); Eosinophils # (Auto) 0.1 Thou/mm3 (0.0-0.5); Eosinophils % (Auto) 2 % (0-10); Hematocrit 31.7 % (36.0-46.0); Hemoglobin 10.8 g/dL (12.0-16.0); Immature Granulocytes % (Auto) 0 % (0-0); Immature Granulocytes Auto 0.01 Thou/mm3 (0.00-0.00); Lymphocytes # (Auto) 1.1 Thou/mm3 (1.0-4.8); Lymphocytes % (Auto) 29 % (10-50); Mean Corpuscular HGB Conc 34.1 g/dl (31.0-37.0); Mean Corpuscular Hemoglobin 31.5 pg (25.0-35.0); Mean Corpuscular Volume 92 fL (80-100); Monocytes # (Auto) 0.5 Thou/mm3 (0.0-0.8); Monocytes % (Auto) 14 % (0-12); Neutrophils % (Auto) 53 % (37-80); Nucleated Red Blood Cell % 0 /100 WBC (0); Platelet Count 225 Thou/mm3 (140-440); RDW Standard Deviation 51.8 fL (36.4-46.3); Red Blood Count 3.43 Miln/mm3 (4.00-5.20); White Blood Count 3.8 Thou/mm3 (3.6-11.0)
[2024-04-15 09:21] LABS: Alanine Aminotransferase 24 U/L (10-49); Albumin, Serum 4.4 gm/dL (3.5-5.0); Albumin/Globulin Ratio 2.2 (1.2-2.2); Alkaline Phosphatase 80 U/L (46-116); Anion Gap 11 (7-16); Aspartate Amino Transferase 27 U/L (0-34); BUN/Creatinine Ratio 9 Ratio (12-20); Bilirubin,Total 0.5 mg/dL (0.3-1.2); Blood Urea Nitrogen 9 mg/dL (9-23); Calcium 9.8 mg/dL (8.3-10.6); Calcium (Corrected) 9.8 mg/dL (8.5-10.1); Carbon Dioxide 22.2 mMol/L (20.0-31.0); Chloride 109 mMol/L (98-107); Glucose 98 mg/dL (74-106); Magnesium 1.8 mg/dL (1.6-2.6); Osmolality,Calculated 281 (275-295); Potassium 4.3 mMol/L (3.4-5.1); Sodium 142 mMol/L (136-145); Total Protein 6.4 gm/dL (5.7-8.2); eGFR > 60 See Note
== END 2024-04-15 23:59 | disposition home or self-care (01) ==
LOC: SCTC 07:55
PROVIDERS: PCP Physician Assistant Medical; Referring Provider Internal Medicine Hematology & Oncology; Visit Provider Internal Medicine Hematology & Oncology
DX: Z51.11 Encounter for antineoplastic chemotherapy (principal); Z51.0 Encounter for antineoplastic radiation therapy; C09.9 Malignant neoplasm of tonsil, unspecified; K12.33 Oral mucositis (ulcerative) due to radiation; Y84.2 Radiological procedure and radiotherapy as the cause of abnormal reaction of the patient, or of later complication, without mention of misadventure at the time of the procedure
CPT/HCPCS: 36591; 77336; 77385; 80053; 83735; 85025; 96360; 96367; 96368; 96375; 96413; 96415; A4216; J1100; J1453; J1642; J1940; J2405; J3475; J3480; J3490; J7030; J7040; J7050; J9060; A9270

== ENCOUNTER 2024-04-23 14:52 | Inpatient (IN) | payer MEDICAID, SELFPAY ==
[2024-04-23 14:57] VITALS: BP 138/84; PULSE 99; RESP 18; TEMP 36.8; O2SAT 99
--- NOTE | 2024-04-23 15:02 | EDNOTE_ITS ---
Nausea/Vomit./Diarrhea-RME/HPI General Chief complaint: Nausea/Vomiting/Diarrhea Stated complaint: N/V Time Seen by Provider: 04/23/24 15:01 Arrival date/time: 04/23/24 14:52 RME / HPI RME / HPI Narrative: DR. WASHBURN MAIN ED EVALUATION: 58 year old female with past medical history significant for throat cancer followed by Dr. Mejia, last radiation on 04/18/2024, presents to the Emergency Department [facility] with complaints of nausea, vomiting, and decreased appetite onset 4 days. Symptoms are moderate. Associated symptoms include generalized weakness and intermittent chest pain in the location she gets radiation, no pain now and states pain is mild. She also reports decreased urination but no dysuria or other urinary symptoms. Last blood pressure per EMS was 200/120. No other symptoms reported at this time. Related Data Home Medications ?Medication ?Instructions ?Recorded ?Confirmed atorvastatin 10 mg tablet 10 mg PO QDAY 01/25/2401/25 levothyroxine 150 mcg tablet 150 mcg PO QDAY 01/25/24 01/26/24 lisinopril 30 mg tablet 30 mg PO QDAY 01/25/2401/25 magnesium oxide 420 mg tablet 420 mg PO BID 01/25/24 1 03/27/23 Allergies Allergy/AdvReac Type Severity Reaction Status Date / Time No Known Allergies Allergy Verified 03/16/24 17:34 Review of Systems Review of Systems Systems Reviewed: All systems reviewed, normal except as documented Narrative Review of Systems: GEN: No fever, no chills, + decreased appetite EYES: No discharge, no visual changes, no pain HEENT: No ear pain, no congestion, no sore throat PULM: No shortness of breath, no cough, no congestion CV: + mild intermittent chest pain (see HPI), no dyspnea on exertion, no palpitations GI: + nausea, + vomiting, no diarrhea, no pain, no constipation : + decreased urination; no frequency, no urgency and no dysuria MUSC/SKEL: No joint pain, no back pain SKIN: No rash PSYCH: No hallucinations, no depression HEME/LYMPH: No easy bleeding or bruising tendencies NEURO: + generalized weakness, no headache Past Medical History Past Medical History CARDIAC: Positive Hypercholesterolemia and Hypertension GASTROINTESTINAL: Positive Gastrointestinal Disorders and Obesity REPRODUCTIVE: Positive Previous Pregnancies (2) MUSCULOSKELETAL: Positive Musculoskeletal Disorders and Arthritis ENDOCRINE: Positive Endocrine Disorders and Hypothyroidism PSYCHO/SOCIAL: Positive Depression (no meds) and Anxiety OTHER HISTORY: Positive Hospitalization (surgery) and Cancer (tonsils) Family History FAMILY HISTORY: Positive Family Cancer and Family Surgery Surgical History SURGICAL: Positive Section (2) Social History SMOKING STATUS: Former smoker SUBSTANCE USE: does not use ALCOHOL: Never ED Exam Narrative Physical exam: GENERAL APPEARANCE: alert and oriented x 4, well-developed, well-nourished, no acute distress VITALS: All vitals were reviewed and the pulse ox is 99% on room air, which is normal according to my interpretation. HEENT: Normocephalic, atraumatic; pupils equal, round, reactive to light; EOMI; mucous membranes pink, moist; oropharynx clear NECK: Supple LUNGS: CTABL; no wheezes, no rales, no rhonchi HEART: Regular rate, regular rhythm; normal S1, S2; no murmurs ABDOMEN: non distended; normal BS; soft, no tenderness, no guarding, no rebound; no masses, no organomegaly, no hernia BACK: no CVA tenderness EXTREMITIES: atraumatic; no edema NEUROLOGIC: awake; alert and oriented x4; cranial nerves II-XII grossly intact; no focal sensory or motor deficits PSYCHIATRIC: appropriate mood and affect SKIN: warm, dry, normal color; no rashes Course Quality Measures none Orders Category Date Time Status CBC Stat Lab 04/23/24 15:20 Completed CMP [Comprehensive Metabolic Panel] Stat Lab 04/23/24 15:20 Completed Lipase Stat Lab 04/23/24 15:20 Completed Troponin I Stat Lab 04/23/24 15:20 Completed UA, C/S IF [Urinalysis, C/S if Indicated] Stat Lab 04/23/24 15:11 Ordered Ondansetron Inj [Zofran Inj] Med 04/23/24 15:34 Discontinued 4 mg IV X1 ONE Sodium Chloride 0.9% 1000 ml [Ns] 1,000 ml Med 04/23/24 15:11 Discontinued IV 999 mls/hr Vital Signs Vital signs: Vital Signs Temperature 98.3 F 04/23/24 14:57 Pulse Rate 99 04/23/24 14:57 Respiratory Rate 18 04/23/24 14:57 Blood Pressure 138/84 H 04/23/24 14:57 Pulse Oximetry (%) 99 04/23/24 14:57 Oxygen Delivery Method Room Air 04/23/24 14:57 Nausea/Vomiting/Diarrhea MDM Narrative MDM Narrative:: I, Charo Lowery, am scribing for and in the presence of Dr. Washburn. Patient data External records reviewed:: [facility] previous records (Reviewed radiation oncology note by Dr. Mejia, dated 04/18/24.) and EMS form Clinical information provided by:: patient and EMS Social determinants that could affect healthcare access:: none Patient has the following chronic illnesses:: Throat cancer followed by Dr. Mejia, last radiation on 04/18/2024. How is presenting disease/condition affected by chronic disease/condition?: exacerbated by Evaluation data The following diagnostics were reviewed and interpreted by me:: lab results Lab and/or radiology exams considered but not ordered:: none Interpretation Summary: Dehydration and Acute kidney injury Pertinent labs include: creatinine 3.2 BUN 38 Medications / Prescriptions Medications / Prescriptions considered but not ordered:: none Medication administrations:: Medication Administration History Discontinued Medications Sodium Chloride (Ns) 1,000 mls @ 999 mls/hr IV .Q1H1M ONE Stop: 04/23/24 16:11 Last Admin: 04/23/24 15:41 Dose: 999 mls/hr Documented By: WILLIS Ondansetron HCl (Ondansetron Inj 2 Mg/Ml Inj 2 Ml) 4 mg IV X1 ONE Stop: 04/23/24 15:35 Last Admin: 04/23/24 15:38 Dose: 4 mg Documented By: WILLIS see above if any Consultations Consultation(s) initiated? (list below): Yes Consultation #1 (Physician, Specialty, Details): Discussed test HPI, PMHx, lab, radiology results and/or management with hospitalist. Will admit for further evaluation and management. Accepts patient for admission. Time: 16:45 Diagnosis Nausea Differential Diagnosis: gastroenteritis, dehydration and other (cancer, radiation side effects, electrolyte imbalance) Most likely diagnosis given after review of the tests above:: Dehydration [place] kidney injury Admission Indicated Admission indicated?: indicated Admission Request Was there a request for admission?: Yes Admission Attestation Admission request attestation: Discussed case with [] from Hospitalist service regarding admission. Discussed patients ED course, exam findings, labs, and radiology results. The Hospitalist [agrees,declines] to accept the patient for admission. Disposition Plan Disposition Plan: Admit Discharge Plan Plan Patient Disposition: Admit Acute Care w/in Hospital Prescriptions/Referrals Prescriptions/Med Rec: No Action magnesium oxide 420 mg Tablet 420 mg PO BID atorvastatin 10 mg Tablet 10 mg PO QDAY levothyroxine 150 mcg Tablet 150 mcg PO QDAY lisinopril 30 mg Tablet 30 mg PO QDAY Problem List Clinical Impression: Dehydration, Acute kidney injury Patient/Caregiver Discharge Instructions Print Language: Irish Stand Alone Forms: Meaghan Award Info., Patient Portal Info Letter
[2024-04-23 15:11] VITALS: BP 163/100; PULSE 104; RESP 15; TEMP 36.7; O2SAT 98
[2024-04-23 15:17] VITALS: PULSE 109; RESP 18; O2SAT 96; BMI 30.2
[2024-04-23] MEDS: ONDANSETRON INJ 2 MG/ML INJ 2 ML 4 MG IV (15:38)
[2024-04-23] MEDS: SODIUM CHLORIDE 0.9% 1000 ML 1,000 ML 999 ML IV (15:41)
[2024-04-23 15:58] LABS: Basophils % (Auto) 0 % (0-2.5); Eosinophils % (Auto) 0 % (0-10); Hematocrit 30.1 % (36.0-46.0); Hemoglobin 10.9 g/dL (12.0-16.0); Immature Granulocytes % (Auto) 0 % (0-0); Immature Granulocytes Auto 0.02 Thou/mm3 (0.00-0.00); Lymphocytes % (Auto) 15 % (10-50); Mean Corpuscular HGB Conc 36.2 g/dl (31.0-37.0); Mean Corpuscular Hemoglobin 31.4 pg (25.0-35.0); Mean Corpuscular Volume 87 fL (80-100); Monocytes # (Auto) 0.5 Thou/mm3 (0.0-0.8); Monocytes % (Auto) 7 % (0-12); Neutrophils # (Auto) 5.3 Thou/mm3 (1.8-7.7); Neutrophils % (Auto) 77 % (37-80); Nucleated Red Blood Cell % 0 /100 WBC (0); Platelet Count 210 Thou/mm3 (140-440); RDW Standard Deviation 47.6 fL (36.4-46.3); Red Blood Count 3.47 Miln/mm3 (4.00-5.20); White Blood Count 6.8 Thou/mm3 (3.6-11.0)
[2024-04-23 16:17] LABS: Alanine Aminotransferase 54 U/L (10-49); Albumin, Serum 4.2 gm/dL (3.5-5.0); Alkaline Phosphatase 79 U/L (46-116); Anion Gap 13 (7-16); Aspartate Amino Transferase 36 U/L (0-34); BUN/Creatinine Ratio 12 Ratio (12-20); Bilirubin,Total 0.5 mg/dL (0.3-1.2); Blood Urea Nitrogen 38 mg/dL (9-23); Calcium 8.6 mg/dL (8.3-10.6); Calcium (Corrected) 8.6 mg/dL (8.5-10.1); Carbon Dioxide 20.8 mMol/L (20.0-31.0); Chloride 102 mMol/L (98-107); Creatinine (Component) 3.2 mg/dL (0.6-1.3); Estimated Creatinine Clearance 17.9 mL/min (>60); Globulin 2.1 gm/dL (2.3-3.5); Glucose 104 mg/dL (74-106); Lipase 43 U/L (12-53); Osmolality,Calculated 280 (275-295); Potassium 3.9 mMol/L (3.4-5.1); Sodium 136 mMol/L (136-145); Total Protein 6.3 gm/dL (5.7-8.2); Troponin I < 0.020 ng/mL (0.0-0.045); eGFR 16 See Note
[2024-04-23 16:24] VITALS: BP 120/65; PULSE 86; RESP 18; TEMP 36.7; O2SAT 100
--- NOTE | 2024-04-23 17:54 | PD.RESHP ---
Documentation for date of: 04/23/24 HPI History of Present Illness Chief complaint: Nausea and vomiting History of present illness: 58 y/o F with PMHx significant for hypertension, hypothyroidism, tonsillar cancer receiving active treatment with radiation and chemotherapy with Dr. Mejia presents to ED from home with chief complaint of nausea vomiting with poor p.o. intake x 4 days. Patient reports that she started radiation/chemotherapy 9 weeks ago, she initially had some nausea and vomiting but improved. Despite that she has had poor p.o. intake for the past couple months, with difficulty swallowing solid foods. Approximately 4 days ago she developed increased nausea and vomiting anytime she tends to eat leading to decreased p.o. intake. This prompted visit to ED. Patient denies fever, chills, shortness of breath, chest pain, abdominal pain, dysuria. ED COURSE: Lab significant for: WBC 6.8, BUN 38, creatinine 2.2, EGFR 16, U tox positive for marijuana. Urinalysis showed positive leukocyte esterase, 13 WBCs, rare bacteria, 8 epithelial cells. Imaging not performed. Patient received 1 L bolus normal saline, Zofran in the ED. Admitted for MARTIN secondary to dehydration. PMH: Hypertension, hypothyroidism, tonsillar cancer PSH: 2 C-sections. Septal deviation repair. SH: Patient has 15?88-[id number]-ibit history, quit smoking 20 years ago. Patient has stopped drinking alcohol several years ago. Patient denies all illicit drug use except for THC beverages. FH: Dad: Prostate cancer. Mother: Throat cancer, breast cancer. Allergies:?NKDA Medications: Levothyroxine, atorvastatin, lisinopril Review of Systems Review of Systems Systems Reviewed: All systems reviewed, normal except as documented Past Medical History Past Medical History Comments PMH COMMENT: PMH: Hypertension, hypothyroidism, tonsillar cancer PSH: 2 C-sections. Septal deviation repair. SH: Patient has 15?83-obps-mesg history, quit smoking 20 years ago. Patient has stopped drinking alcohol several years ago. Patient denies all illicit drug use except for THC beverages. FH: Dad: Prostate cancer. Mother: Throat cancer, breast cancer. Allergies:?NKDA Medications: Levothyroxine, atorvastatin, lisinopril Exam Vital Signs Temp Pulse Resp BP Pulse Ox O2 Del Method 98.1 F 86 18 120/65 100 Room Air 04/23/24 16:24 04/23/24 16:24 04/23/24 16:24 04/23/24 16:24 04/23/24 16:24 04/23/24 16:24 Narrative Exam PE: Gen: Well-developed and well-nourished. HEENT: NCAT, PERRLA, EOMI, anicteric conjunctivae. Dry mucous membranes. CVS: normal S1 and S2. RRR. No M/R/G. Resp: CTA B/L. No rhonchi, rales, crackles or wheezing. Abd: soft, non-tender, non-distended. MSK: Good ROM in BUE & BLE. No edema or rash. Neuro: CN II-XII grossly intact. Strength 5/5 in BUE & BLE. Alert and oriented x3. Psych: appropriate mood and affect. Results: Labs 04/24/24 05:42 04/24/24 05:42 Labs: Short CBC 04/23/24 Range/Units 15:20 WBC 6.8 (3.6-11.0) Thou/mm3 Hgb 10.9 L (12.0-16.0) g/dL Hct 30.1 L (36.0-46.0) % Plt Count 210 (140-440) Thou/mm3 BMP 04/23/24 15:20 Sodium 136 Potassium 3.9 D Chloride 102 Carbon Dioxide 20.8 BUN 38 H Creatinine 3.2 H Glucose 104 Calcium 8.6 Cardiac Enzymes 04/23/24 Range/Units 15:20 Troponin I < 0.020 (0.0-0.045) ng/mL Liver Function 04/23/24 Range/Units 15:20 Total Bilirubin 0.5 (0.3-1.2) mg/dL AST 36 H (0-34) U/L ALT 54 H (10-49) U/L Alkaline Phosphatase 79 (46-116) U/L Albumin 4.2 (3.5-5.0) gm/dL Quality Measures Quality Measures VTE prophylaxis Medications Home Medications and Allergies Home Medications ?Medication ?Instructions ?Recorded ?Confirmed ?Type atorvastatin 10 mg tablet 10 mg PO QDAY 01/25/24 04/23/24 History levothyroxine 150 mcg tablet 150 mcg PO QDAY 01/25/24 04/23/24 History lisinopril 30 mg tablet 30 mg PO QDAY 01/25/24 04/23/24 History magnesium oxide 420 mg tablet 420 mg PO BID 01/25/24 04/23/24 History potassium chloride 20 mEq 20 meq PO DAILY 04/23/24 04/23/24 History tablet,extended release trazodone 100 mg tablet 100 mg PO DAILY PRN insomnia 04/23/24 04/23/24 History Allergies Allergy/AdvReac Type Severity Reaction Status Date / Time No Known Allergies Allergy Verified 03/16/24 17:34 Visit Medications Acetaminophen (Acetaminophen 325 Mg Tablet) 650 mg PO Q6H PRN PRN Reason: Fever >100.4 or pain Stop: 05/23/24 17:42 Hydrocodone Bitart/Acetaminophen (Hydrocodone/Apap 5/325 Tablet) 1 tab PO Q4HR PRN PRN Reason: PAIN SCALE 4-10(Mod-Sev Stop: 04/28/24 17:42 Atorvastatin Calcium (Atorvastatin Calcium 10 Mg Tablet) 10 mg PO QDAY SARA Stop: 05/24/24 08:59 Heparin Sodium (Porcine) (Heparin Sod Inj 5000 Unit/Ml Vial) 5,000 unit SC BID SARA Stop: 05/07/24 20:59 Sodium Chloride (Ns) 1,000 mls @ 75 mls/hr IV .[id number] SARA Stop: 04/24/24 20:24 Levothyroxine Sodium (Levothyroxine Sodium 25 Mcg Tablet) 150 mcg PO QDAY SARA Stop: 04/23/24 18:01 Levothyroxine Sodium 125 mcg/ (Levothyroxine Sodium 25 mcg) 150 mcg PO ACBR SARA Stop: 05/24/24 05:59 Ondansetron HCl (Ondansetron Inj 2 Mg/Ml Inj 2 Ml) 4 mg IV Q6H PRN; Protocol PRN Reason: NAUSEA OR VOMITING Stop: 05/23/24 17:42 Discontinued Medications Sodium Chloride (Ns) 1,000 mls @ 999 mls/hr IV .Q1H1M ONE Stop: 04/23/24 16:11 Last Infusion: 04/23/24 16:55 Dose: Infused Levothyroxine Sodium 125 mcg/ (Levothyroxine Sodium 25 mcg) 150 mcg PO ACBR SARA Stop: 05/23/24 17:59 Ondansetron HCl (Ondansetron Inj 2 Mg/Ml Inj 2 Ml) 4 mg IV X1 ONE Stop: 04/23/24 15:35 Last Admin: 04/23/24 15:38 Dose: 4 mg Assessment & Plan Plan 58 y/o F with PMHx significant for hypertension, hypothyroidism, tonsillar cancer receiving active treatment with radiation and chemotherapy with Dr. Mejia presents to ED from home with chief complaint of nausea vomiting with poor p.o. intake x 4 days, admitted for prerenal MARTIN secondary to dehydration. #Acute renal failure secondary to dehydration #Intractable nausea/vomiting Patient presented with chief complaint of nausea and vomiting with poor p.o. intake x 4 days. On admission patient had MARTIN: BUN 38, creatinine 2.2, EGFR 16. Likely secondary to radiation/chemotherapy treatment for tonsillar cancer. Urinalysis shows potential UTI, likely contaminated, culture pending. Patient received 1 L bolus normal saline in the ED. -IVF: Normal saline at 75 mL/h x 2 L -Daily labs -Renally dose medications -Avoid nephrotoxins -Encourage oral hydration -Zofran 4 mg IV every 6 hours as needed for nausea -Renal ultrasound ordered, follow-up -Follow-up urine culture #Tonsillar cancer, active treatments radiation/chemotherapy Patient is receiving treatment radiation/chemotherapy with Dr. Mejia for tonsillar cancer. Patient reports fatigue for past 9 months since treatments began. Patient also reports she has had increased difficulty eating her usual food, in addition to poor appetite she has had some difficulty swallowing and prefers softer foods. Patient does express intermittent pain with dry mouth. -Clear liquid diet -Speech therapy eval, follow-up -Magic mouthwash daily as needed for dry mouth/pain #Suspected depression Patient expressed feelings of anxiety and hopelessness since diagnosis, along with decreased interest in activities. Has not been formally evaluated for this. -Consider PHQ-9 -Follow-up outpatient #Hypertension Patient history as stated. Takes lisinopril at home -Holding home lisinopril due to MARTIN #Hypothyroidism Patient history as stated. Takes levothyroxine at home. -Resume home meds: Levothyroxine 150 mcg p.o. daily DVT prophylaxis: Heparin GI prophylaxis: None Diet: Clear liquid diet Lines: Peripheral IV Code status: Full code Plan of care discussed with attending Dr. Herman. Truong Eaton MD PGY?1 Attending Provider Attestation/Addendum Mita Martinez, DO, attest that I was physically present for the flores portions of the service and evaluated the patient with the resident and I reviewed and discussed the case with the resident and agree with the resident's findings and plans of care as documented above Patient is a 58 year old female with PmHx of hypertension, hypothyroidism, tonsillar cancer receiving active treatment with radiation and chemotherapy who presented to the ED due to worsening fatigue and poor PO intake. Patient has been having intractable nausea and vomiting. She reports being unable to tolerate water even. She is noted to have acute renal failure, likely due to prerenal azotemia. Will admit patient to med/surg for further management of acute renal failure and intractable N/V. She reports occasional pain in her mouth and dry mouth, likely 2/2 radiation mucositis. Will order magic mouthwash as needed. Will start IV fluids and antiemetics as needed. Patient states that oncology had previously discussed PEG tube in the past if she is unable to eat. She is agreeable if she is unable to meet her nutritional demands. Will have ST see patient and advance diet as tolerated. If patient continues to have poor PO intake, will consider consulting GI for possible PEG tube placement. She otherwise denies any fevers, chills, shortness of breath, chest pain or abdominal pain.
[2024-04-23] MEDS: LEVOTHYROXINE SODIUM 25 MCG TABLET 150 MCG PO (18:12)
[2024-04-23] MEDS: SODIUM CHLORIDE 0.9% 1000 ML 1,000 ML 75 ML IV (18:13)
[2024-04-23 18:17] VITALS: BP 151/87; PULSE 93; RESP 14; TEMP 36.8; O2SAT 97
[2024-04-23 18:19] LABS: Collection Type, Urine Clean Catch
[2024-04-23 18:31] LABS: Bilirubin,Urine Negative (Negative); Blood,Urine Trace (Negative); Clarity,Urine Clear (Clear/Hazy); Color,Urine Lt-Yellow (Lt Yel-Yel); Culture Indicated,Urine Not Indicated; Glucose, Urine Trace (Negative); Ketones,Urine 1+ (Negative); Leukocyte Esterase,Urine Negative (Negative); Nitrite,Urine Negative (Negative); Protein,Urine 2+ (Neg - Trace); RBC,Urine 3 /hpf (0-3); Specific Gravity,Urine 1.015 (1.001-1.035); Squamous Epithelial Cell,Urine 2 /hpf (0-5); Urobilinogen,Urine Negative mg/dL (0.0-1.0); WBC,Urine 6 /hpf (0-5)
--- NOTE | 2024-04-23 19:08 | PC.NURSE ---
Received Handoff report from ER at 18:37. Pt arrived on the floor at 18:50.
[2024-04-23 19:30] VITALS: BMI 31.1
[2024-04-23 20:00] VITALS: BP 149/87; PULSE 90; RESP 17; TEMP 37.1; O2SAT 98
[2024-04-23] MEDS: HEPARIN SOD INJ 5000 UNIT/ML VIAL SC (21:29)
[2024-04-24] VITALS (8 sets, daily range): BP systolic 145–166; BP diastolic 80–97; PULSE 90–97; RESP 16–19; TEMP 36.1–36.8; O2SAT 94–99
--- NOTE | 2024-04-24 | XR_ITS ---
Examination: Retroperitoneal ultrasound, complete Technique: Multiple high resolution grayscale images of the retroperitoneum obtained, including kidneys and bladder. Exam date and time:May 04, 2024 0022 hrs. Indications: Acute renal insufficiency Findings: Right kidney 9.0 cm renal cortex 1.1 cm Left kidney 11.0 cm cortex 1.6 cm Mild bilateral renal parenchymal scar formation No hydronephrosis Contracted urinary bladder Impression: Small right kidney with renal cortical thinning Mild bilateral renal parenchymal scar formation
--- NOTE | 2024-04-24 03:17 | PRELIM_ITS ---
Renal/Retroperitoneal ultrasound. April 24, 2024 0025 hours Clinical history: Acute kidney injury. Technique: Duplex scan of the bilateral renal arterial and venous tree was performed utilizing 2D grayscale imaging, Doppler spectral analysis and color flow. Comparison: None Findings: There is slightly increased echogenicity of both kidneys which may indicate medical renal disease. Right: The right kidney measures 9 cm in length. There is no hydronephrosis or renal calculus. The corticomedullary differentiation is maintained. Left: The left kidney measures 11 cm in length. There is no hydronephrosis or renal calculus. The corticomedullary differentiation is maintained. The urinary bladder is unremarkable. Urinary bladder only contains trace amount of fluid, 1 mL. Patient unable to void. No ureteral jets visualized. Impression: Possible medical renal disease. No renal mass, calculus or hydronephrosis. Report Electronically Signed By: Eliecer Meyers 04/24/2024 3:17:01 AM [EST]
[2024-04-24] MEDS: LEVOTHYROXINE SODIUM 125 MCG, LEVOTHYROXINE SODIUM 25 MCG 150 MCG PO (05:40)
[2024-04-24 06:32] LABS: Basophils % (Auto) 1 % (0-2.5); Eosinophils % (Auto) 0 % (0-10); Hematocrit 25.8 % (36.0-46.0); Hemoglobin 9.4 g/dL (12.0-16.0); Immature Granulocytes % (Auto) 0 % (0-0); Immature Granulocytes Auto 0.01 Thou/mm3 (0.00-0.00); Lymphocytes # (Auto) 0.9 Thou/mm3 (1.0-4.8); Lymphocytes % (Auto) 21 % (10-50); Mean Corpuscular HGB Conc 36.4 g/dl (31.0-37.0); Mean Corpuscular Volume 88 fL (80-100); Monocytes # (Auto) 0.4 Thou/mm3 (0.0-0.8); Monocytes % (Auto) 9 % (0-12); Neutrophils # (Auto) 2.9 Thou/mm3 (1.8-7.7); Neutrophils % (Auto) 69 % (37-80); Nucleated Red Blood Cell % 0 /100 WBC (0); Platelet Count 134 Thou/mm3 (140-440); RDW Standard Deviation 48.4 fL (36.4-46.3); Red Blood Count 2.94 Miln/mm3 (4.00-5.20); White Blood Count 4.3 Thou/mm3 (3.6-11.0)
[2024-04-24 06:35] LABS: Alanine Aminotransferase 38 U/L (10-49); Albumin, Serum 3.5 gm/dL (3.5-5.0); Albumin/Globulin Ratio 1.9 (1.2-2.2); Alkaline Phosphatase 63 U/L (46-116); Anion Gap 9 (7-16); Aspartate Amino Transferase 23 U/L (0-34); BUN/Creatinine Ratio 12 Ratio (12-20); Bilirubin,Total 0.3 mg/dL (0.3-1.2); Blood Urea Nitrogen 37 mg/dL (9-23); Calcium 7.7 mg/dL (8.3-10.6); Calcium (Corrected) 8.1 mg/dL (8.5-10.1); Carbon Dioxide 21.1 mMol/L (20.0-31.0); Chloride 107 mMol/L (98-107); Estimated Creatinine Clearance 19.4 mL/min (>60); Globulin 1.8 gm/dL (2.3-3.5); Glucose 84 mg/dL (74-106); Magnesium 1.4 mg/dL (1.6-2.6); Osmolality,Calculated 281 (275-295); Phosphorous 3.6 mg/dL (2.4-5.1); Potassium 3.5 mMol/L (3.4-5.1); Sodium 137 mMol/L (136-145); Total Protein 5.3 gm/dL (5.7-8.2); eGFR 17 See Note
[2024-04-24] MEDS: SODIUM CHLORIDE 0.9% 1000 ML 1,000 ML 75 ML IV (08:40)
[2024-04-24] MEDS: ATORVASTATIN CALCIUM 10 MG TABLET PO (08:40)
[2024-04-24] MEDS: HEPARIN SOD INJ 5000 UNIT/ML VIAL SC ×2 (08:41→20:25)
[2024-04-24] MEDS: Magnesium Sulfate 4 GM Ivpb 4 GM/50 ML BAG IV (09:25)
--- NOTE | 2024-04-24 11:24 | PCS.ST ---
d2/thin. recommend RD CONSULT. see swallow report for additional details.
--- NOTE | 2024-04-24 11:32 | PC.SS ---
Patient is alert/oriented. She was able to verify demographics. Patient states she's independent with ADL's. Admitted for nausea and vomiting. Patient states prior to hospitalization she was independent with ADL's. Patient states she was not using any DME. Patient was following with the [facility] under the care of Dr. Mejia and Dr. Reyes. She sttes she completed chemo and is currently on radiation. She ststes she hs 14 more sessions remaining. Her last appt. was last week. Patient states prior to hospitalization she was driving herself to appointments. PCP: [facility] in [place], Dr. Brynn Barber. Last appt. was 2 months ago. Pharmacy: [facility]. Her alt medical decision maker: prince Baptisteer,
--- NOTE | 2024-04-24 12:02 | ESPR_ITS ---
Documentation for date of: 04/24/24 Subjective Subjective Interval history: Patient seen and examined at bedside. Patient states that she is nauseous. Patient blood pressure has been relatively high, 140s to 160s over 80s to 90s. Will start amlodipine 10 mg daily and lieu of patient's MARTIN. Will continue with IV fluids. Renal ultrasound showed small right kidney with renal cortical thinning with mild bilateral renal parenchymal scar. Pending urine cultures. Speech therapy saw patient, and recommended dysphagia [address] Morgan following. Exam Vital Signs Temp Pulse Resp BP Pulse Ox O2 Del Method 97.1 F 92 17 164/97 H 99 Room Air 04/24/24 07:58 04/24/24 07:58 04/24/24 07:58 04/24/24 07:58 04/24/24 07:58 04/24/24 07:58 Narrative Exam General Appearance: Pt in mild acute distress laying in bed. HEENT: NC/AT, no scleral icterus, no conjunctival pallor, dry mucous membranes Lungs: CTAB, no wheezes or crackles appreciated CVS: RRR, S1/S2 heard, no murmurs or rubs appreciated ABD: Soft, non-tender, non-distended, BS + in all 4 quadrants EXT: no deformity/edema/lesions/cyanosis/clubbing, radial pulses 2+ BL, DP pulses 2 + BL SKIN: Skin exam normal without any rashes. Neuro: A&O x 3. No gross neurological deficits. Motor and sensory grossly intact in B/L UL and LL. Psych: Appropriate mood and affect Objective Labs 04/25/24 05:15 04/25/24 05:15 Labs: Laboratory Results - last 24 hr 04/23/24 04/23/24 04/24/24 15:20 17:33 05:42 WBC 6.8 4.3 RBC 3.47 L 2.94 L Hgb 10.9 L 9.4 L Hct 30.1 L 25.8 L MCV 87 88 MCH 31.4 32.0 MCHC 36.2 36.4 RDW Std Deviation 47.6 H 48.4 H Plt Count 210 134 L D Neut % (Auto) 77 69 Lymph % (Auto) 15 21 Irwin % (Auto) 7 9 Eos % (Auto) 0 0 Baso % (Auto) 0 1 Neut # (Auto) 5.3 2.9 Lymph # (Auto) 1.0 0.9 L Irwin # (Auto) 0.5 0.4 Eos # (Auto) 0.0 0.0 Baso # (Auto) 0.0 0.0 Immature Gran # (Auto) 0.02 H 0.01 H Absolute Nucleated RBC 0.00 0.00 Immature Gran % 0 0 Nucleated RBC % 0 0 Sodium 136 137 Potassium 3.9 D 3.5 Chloride 102 107 Carbon Dioxide 20.8 21.1 Anion Gap 13 9 BUN 38 H 37 H Creatinine 3.2 H 3.0 H Estim Creat Clear Calc 17.9 L 19.4 L eGFR 16 L 17 L BUN/Creatinine Ratio 12 12 Glucose 104 84 Calculated Osmolality 280 281 Calcium 8.6 7.7 L Corrected Calcium 8.6 8.1 L Phosphorus 3.6 Magnesium 1.4 L Total Bilirubin 0.5 0.3 AST 36 H 23 ALT 54 H 38 Alkaline Phosphatase 79 63 D Troponin I < 0.020 Total Protein 6.3 5.3 L Albumin 4.2 3.5 D Globulin 2.1 L 1.8 L Albumin/Globulin Ratio 2.0 1.9 Lipase 43 Ur Collection Type Clean Catch Urine Color Lt-Yellow Urine Clarity Clear Urine pH 6.0 Ur Specific [place] 1.015 Urine Protein 2+ A Urine Glucose (UA) Trace Urine Ketones 1+ A Urine Blood Trace Urine Nitrite Negative Urine Bilirubin Negative Urine Urobilinogen (Auto) Negative Ur Leukocyte Esterase Negative Urine RBC 3 Urine WBC 6 H Ur Squamous Epith Cells 2 Urine Bacteria None Ur Culture Indicated? Not Indicated Quality Measures Quality Measures VTE prophylaxis Assessment & Plan Assessment Current Active Medications: Generic Name Dose Route Start Last Admin Trade Name Brandy PRN Reason Stop Dose Admin Acetaminophen 650 mg 04/24/24 11:31 Acetaminophen 325 Mg Tablet PO 05/23/24 17:42 Q6H PRN Fever >100.4 or pain (1-3) Hydrocodone Bitart/Acetaminophen 1 tab 04/23/24 17:43 Hydrocodone/Apap 5/325 Tablet PO 04/28/24 17:42 Q4HR PRN PAIN SCALE 4-10(Mod-Sev Atorvastatin Calcium 10 mg 04/24/24 09:00 04/24/24 08:40 Atorvastatin Calcium 10 Mg Tablet PO 05/24/24 08:59 10 mg QDAY SARA Administration Lidocaine HCl 10 ml/ 0 ml 04/23/24 18:21 Diphenhydramine HCl 25 mg/ Al PO 04/30/24 18:12 Hydrox/Mg Hydrox/Simethicone Q8HR PRN 30 ml/ Nystatin 10 ml Dry Mouth Heparin Sodium (Porcine) 5,000 unit 04/23/24 21:00 04/24/24 08:41 Heparin Sod Inj 5000 Unit/Ml Vial SC 05/07/24 20:59 5,000 unit BID SARA Administration Sodium Chloride 1,000 mls @ 75 mls/hr 04/23/24 17:45 04/24/24 08:40 Ns IV 04/24/24 20:24 75 mls/hr .[id number] SARA Administration Magnesium Sulfate 4 gm in 50 mls @ 12.5 mls/hr 04/24/24 08:45 04/24/24 09:25 Magnesium Sulfate Ivpb IV 04/24/24 12:44 12.5 mls/hr X1 ONE Administration Levothyroxine Sodium 125 mcg/ 150 mcg 04/24/24 06:00 04/24/24 05:40 Levothyroxine Sodium 25 mcg PO 05/24/24 05:59 150 mcg ACBR SARA Administration Ondansetron HCl 4 mg 04/23/24 17:43 Ondansetron Inj 2 Mg/Ml Inj 2 Ml IV 05/23/24 17:42 Q6H PRN NAUSEA OR VOMITING Protocol Plan 58 y/o F with PMHx significant for hypertension, hypothyroidism, tonsillar cancer receiving active treatment with radiation and chemotherapy with Dr. Mejia presents to ED from home with chief complaint of nausea vomiting with poor p.o. intake x 4 days, admitted for prerenal MARTIN secondary to dehydration. #Acute renal failure secondary to dehydration #Intractable nausea/vomiting Patient presented with chief complaint of nausea and vomiting with poor p.o. intake x 4 days. On admission patient had MARTIN: BUN 38, creatinine 2.2, EGFR 16. Likely secondary to radiation/chemotherapy treatment for tonsillar cancer. Urinalysis shows potential UTI, likely contaminated, culture pending. Patient received 1 L bolus normal saline in the ED. -IVF: Normal saline at 75 mL/h -Daily labs -Renally dose medications -Avoid nephrotoxins -Encourage oral hydration -Zofran 4 mg IV every 6 hours as needed for nausea -Renal ultrasound ordered, follow-up -Follow-up urine culture #Tonsillar cancer, active treatments radiation/chemotherapy Patient is receiving treatment radiation/chemotherapy with Dr. Mejia for tonsillar cancer. Patient reports fatigue for past 9 months since treatments began. Patient also reports she has had increased difficulty eating her usual food, in addition to poor appetite she has had some difficulty swallowing and prefers softer foods. Patient does express intermittent pain with dry mouth. -Clear liquid diet -Speech therapy eval, follow-up -Magic mouthwash daily as needed for dry mouth/pain -Consult Dr. Mejia, appreciate further recommendations #Suspected depression Patient expressed feelings of anxiety and hopelessness since diagnosis, along with decreased interest in activities. Has not been formally evaluated for this. -Consider PHQ-9 -Follow-up outpatient #Hypertension Patient history as stated. Takes lisinopril at home -Holding home lisinopril due to MARTIN -Started Amlodipine 10mg #Hypothyroidism Patient history as stated. Takes levothyroxine at home. -Resume home meds: Levothyroxine 150 mcg p.o. daily Health maintenance: DVT prophylaxis: Heparin GI prophylaxis: None Diet: Clear liquid diet Lines: Peripheral IV Code status: Full code Patient's plan and care discussed with my attending, Dr. Virgil Rivas MD PGY-2 Attending Provider Attestation/Addendum I, Mita Herman, DO, attest that I was physically present for the flores portions of the service and evaluated the patient with the resident and I reviewed and discussed the case with the resident and agree with the resident's findings and plans of care as documented above Patient seen and evaluated this a.m. She states that she was able to drink water, but was unable to tolerate eating any fruit. Patient was evaluated by the speech therapist this morning and had diet advanced to dysphagia 2. Patient continues to consume plaint of nausea, but denies any vomiting. Renal function slightly improved from 3.2 creatinine to 3.0. Will continue with IV fluid hydration in the meantime. Will consult oncology for further recommendations. No acute events overnight otherwise. Will start amlodipine due to hypertension and hold patient's home lisinopril due to acute renal failure. Patient otherwise denies any shortness of breath, chest pain, fever, chills, abdominal pain, dysuria, melena or hematochezia
[2024-04-24] MEDS: amLODIPine BESYLATE 5 MG TABLET 10 MG PO (17:28)
[2024-04-24] MEDS: ONDANSETRON INJ 2 MG/ML INJ 2 ML 4 MG IV (21:19)
[2024-04-25] VITALS (7 sets, daily range): BP systolic 128–146; BP diastolic 62–85; PULSE 88–102; RESP 16–19; TEMP 36–36.2; O2SAT 97–100; BMI 31.3
[2024-04-25] MEDS: LEVOTHYROXINE SODIUM 125 MCG, LEVOTHYROXINE SODIUM 25 MCG 150 MCG PO (05:50)
[2024-04-25 06:18] LABS: Basophils % (Auto) 0 % (0-2.5); Eosinophils % (Auto) 0 % (0-10); Hematocrit 27.1 % (36.0-46.0); Immature Granulocytes % (Auto) 1 % (0-0); Immature Granulocytes Auto 0.03 Thou/mm3 (0.00-0.00); Lymphocytes # (Auto) 0.8 Thou/mm3 (1.0-4.8); Lymphocytes % (Auto) 17 % (10-50); Mean Corpuscular HGB Conc 36.9 g/dl (31.0-37.0); Mean Corpuscular Hemoglobin 31.8 pg (25.0-35.0); Mean Corpuscular Volume 86 fL (80-100); Monocytes # (Auto) 0.5 Thou/mm3 (0.0-0.8); Monocytes % (Auto) 10 % (0-12); Neutrophils # (Auto) 3.2 Thou/mm3 (1.8-7.7); Neutrophils % (Auto) 71 % (37-80); Nucleated Red Blood Cell % 0 /100 WBC (0); Platelet Count 137 Thou/mm3 (140-440); RDW Standard Deviation 47.4 fL (36.4-46.3); Red Blood Count 3.14 Miln/mm3 (4.00-5.20); White Blood Count 4.6 Thou/mm3 (3.6-11.0)
[2024-04-25 06:34] LABS: Alanine Aminotransferase 33 U/L (10-49); Albumin, Serum 3.7 gm/dL (3.5-5.0); Albumin/Globulin Ratio 1.9 (1.2-2.2); Alkaline Phosphatase 64 U/L (46-116); Anion Gap 13 (7-16); Aspartate Amino Transferase 24 U/L (0-34); BUN/Creatinine Ratio 12 Ratio (12-20); Bilirubin,Total 0.4 mg/dL (0.3-1.2); Blood Urea Nitrogen 30 mg/dL (9-23); Calcium 7.8 mg/dL (8.3-10.6); Carbon Dioxide 18.6 mMol/L (20.0-31.0); Chloride 105 mMol/L (98-107); Creatinine (Component) 2.5 mg/dL (0.6-1.3); Estimated Creatinine Clearance 23.3 mL/min (>60); Glucose 91 mg/dL (74-106); Osmolality,Calculated 280 (275-295); Sodium 137 mMol/L (136-145); Total Protein 5.7 gm/dL (5.7-8.2); eGFR 22 See Note
[2024-04-25 06:41] LABS: Potassium 2.7 mMol/L (3.4-5.1)
--- NOTE | 2024-04-25 06:44 | PC.NURSE ---
Potassium level 2.7, Dr. Ibanez was made aware. to put in an order.
[2024-04-25] MEDS: POTASSIUM CHLORIDE 10% 20 MEQ/15 ML UDC 40 MEQ PO (10:10)
[2024-04-25] MEDS: amLODIPine BESYLATE 5 MG TABLET 10 MG PO (10:10)
[2024-04-25] MEDS: POTASSIUM CHL 10 mEq IVPB 10 MEQ/100 ML BAG 100 MEQ IV ×4 (10:11→14:36)
[2024-04-25] MEDS: Magnesium Sulfate 4 GM Ivpb 4 GM/50 ML BAG IV (10:11)
--- NOTE | 2024-04-25 10:12 | PD.ONCCONS ---
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 Patient developed increasing nausea vomiting symptoms and came to ER 04/23/2024 with symptoms of dehydration and acute kidney injury. BUN 38 creatinine 3.2 EGFR 16. On 04/15/2024 these numbers were normal. Blood pressure was also noted to be fairly high and was started on antihypertensives along with IV fluids and electrolyte correction. Patient referred for oncological consultation. 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 Past Medical History Comments PMH COMMENT: Hypertension recent discovery of left tonsillar cancer. Meds Home Medications and Allergies Home Medications ?Medication ?Instructions ?Recorded ?Confirmed ?Type atorvastatin 10 mg tablet 10 mg PO QDAY 01/25/24 04/23/24 History levothyroxine 150 mcg tablet 150 mcg PO QDAY 01/25/24 04/23/24 History lisinopril 30 mg tablet 30 mg PO QDAY 01/25/24 04/23/24 History magnesium oxide 420 mg tablet 420 mg PO BID 01/25/24 04/23/24 History potassium chloride 20 mEq 20 meq PO DAILY 04/23/24 04/23/24 History tablet,extended release trazodone 100 mg tablet 100 mg PO DAILY PRN insomnia 04/23/24 04/23/24 History Allergies Allergy/AdvReac Type Severity Reaction Status Date / Time No Known Allergies Allergy Verified 03/16/24 17:34 Exam Vital Signs Temp Pulse Resp BP Pulse Ox O2 Del Method 97.0 F 102 H 18 129/84 97 Room Air 04/25/24 08:00 04/25/24 10:10 04/25/24 08:00 04/25/24 10:10 04/25/24 08:00 04/25/24 08:00 Narrative Exam Appearing comfortable this a.m. Results Labs 04/25/24 05:15 04/25/24 05:15 Labs: Short CBC 04/25/24 Range/Units 05:15 WBC 4.6 (3.6-11.0) Thou/mm3 Hgb 10.0 L (12.0-16.0) g/dL Hct 27.1 L (36.0-46.0) % Plt Count 137 L (140-440) Thou/mm3 BMP 04/25/24 05:15 Sodium 137 Potassium 2.7 L* D Chloride 105 Carbon Dioxide 18.6 L BUN 30 H Creatinine 2.5 H D Glucose 91 Calcium 7.8 L Liver Function 04/25/24 Range/Units 05:15 Total Bilirubin 0.4 (0.3-1.2) mg/dL AST 24 (0-34) U/L ALT 33 (10-49) U/L Alkaline Phosphatase 64 (46-116) U/L Albumin 3.7 (3.5-5.0) gm/dL Assessment and Plan Additional Assessment & Plan Additional Plan: 1. 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 2. Admitted with nausea vomiting dehydration acute kidney injury. 3. Appears to be improving clinically with hydration BP control and other supportive measures. I will see patient upon discharge to continue cancer treatments. Patient has about 2 additional weeks of chemoradiation remaining.
[2024-04-25] MEDS: HEPARIN SOD INJ 5000 UNIT/ML VIAL SC ×2 (10:13→20:27)
--- NOTE | 2024-04-25 11:25 | PC.SS ---
Rounding: Pending Dr. Mejia reccs
[2024-04-25] MEDS: ONDANSETRON INJ 2 MG/ML INJ 2 ML 4 MG IV ×2 (11:39→23:25)
[2024-04-25 14:36] LABS: Anion Gap 13 (7-16); BUN/Creatinine Ratio 10 Ratio (12-20); Blood Urea Nitrogen 26 mg/dL (9-23); Calcium 7.9 mg/dL (8.3-10.6); Carbon Dioxide 19.3 mMol/L (20.0-31.0); Chloride 102 mMol/L (98-107); Creatinine (Component) 2.5 mg/dL (0.6-1.3); Estimated Creatinine Clearance 23.3 mL/min (>60); Glucose 111 mg/dL (74-106); Osmolality,Calculated 273 (275-295); Potassium 3.5 mMol/L (3.4-5.1); Sodium 134 mMol/L (136-145); eGFR 22 See Note
--- NOTE | 2024-04-25 16:30 | ESPR_ITS ---
<Statement entered by Elena Rivas MD - 04/25/24 18:20> Patient seen and examined at bedside. No acute overnight events reported. Patient has not had any lunch or dinner yesterday. Patient is frustrated that patient has not been able to keep most of her food down, due to increased nausea/vomiting. Patient would like to have PEG tube placement to improve her nutrition and strength. Will place a consult with Dr. Morgan, GI for placement. Continue with IV fluids for now. Dr. Mejia, oncology is following. I discussed with and supervised the nutrition intern physician who took care of this patient. I personally saw and examined the patient and discussed the assessment and plan with the entire medicine team, including my attending Dr. Herman, I agree with most of the assessment and plan as documented below Elena Rivas M.D. PGY-2 Disclaimer: Despite multiple revisions, due to the dictation software being used, the document bellow may not be free of grammatical errors including phonetic/typographic errors. However, this does not deter from our commitment to providing health care in the patient's best interest in mind. Documentation for date of: 04/25/24 Subjective Subjective Interval history: No overnight events. Patient seen and examined at bedside. Patient resting comfortably, appears mildly distressed. Patient endorses continued nausea, no p.o. intake. Patient requesting PEG tube. Patient denies weakness, fatigue, chest pain, shortness of breath, fever, chills. GI consulted for PEG tube placement. Will follow-up. Continue IVF. Exam Vital Signs Temp Pulse Resp BP Pulse Ox O2 Del Method 97.1 F 88 19 130/83 100 Room Air 04/25/24 16:00 04/25/24 16:00 04/25/24 16:00 04/25/24 16:00 04/25/24 16:04/25/24 16:00 Narrative Exam PE: Gen: Well-developed and well-nourished. HEENT: NCAT, PERRLA, EOMI, anicteric conjunctivae. CVS: normal S1 and S2. RRR. No M/R/G. Resp: CTA B/L. No rhonchi, rales, crackles or wheezing. Abd: soft, non-tender, non-distended. MSK: Good ROM in BUE & BLE. No edema or rash. Neuro: CN II-XII grossly intact. Strength 5/5 in BUE & BLE. Alert and oriented x3. Psych: appropriate mood and affect. Objective Labs 04/26/24 04:59 04/26/24 04:59 Labs: Laboratory Results - last 24 hr 04/25/24 04/25/24 05:15 13:19 WBC 4.6 RBC 3.14 L Hgb 10.0 L Hct 27.1 L MCV 86 MCH 31.8 MCHC 36.9 RDW Std Deviation 47.4 H Plt Count 137 L Neut % (Auto) 71 Lymph % (Auto) 17 [place] % (Auto) 10 Eos % (Auto) 0 Baso % (Auto) 0 Neut # (Auto) 3.2 Lymph # (Auto) 0.8 L [place] # (Auto) 0.5 Eos # (Auto) 0.0 Baso # (Auto) 0.0 Immature Gran # (Auto) 0.03 H Absolute Nucleated RBC 0.00 Immature Gran % 1 H Nucleated RBC % 0 Sodium 137 134 L Potassium 2.7 L* D 3.5 D Chloride 105 102 Carbon Dioxide 18.6 L 19.3 L Anion Gap 13 13 BUN 30 H 26 H Creatinine 2.5 H D 2.5 H Estim Creat Clear Calc 23.3 L 23.3 L eGFR 22 L 22 L BUN/Creatinine Ratio 12 10 L Glucose 91 111 H Calculated Osmolality 280 273 L Calcium 7.8 L 7.9 L Corrected Calcium 8.0 L Total Bilirubin 0.4 AST 24 ALT 33 Alkaline Phosphatase 64 Total Protein 5.7 Albumin 3.7 Globulin 2.0 L Albumin/Globulin Ratio 1.9 Quality Measures Quality Measures VTE prophylaxis Assessment & Plan Assessment Current Active Medications: Generic Name Dose Route Start Last Admin Trade Name Freq PRN Reason Stop Dose Admin Acetaminophen 650 mg 04/24/24 11:31 Acetaminophen 325 Mg Tablet PO 05/23/24 17:42 Q6H PRN Fever >100.4 or pain (1-3) Hydrocodone Bitart/Acetaminophen 1 tab 04/23/24 17:43 Hydrocodone/Apap 5/325 Tablet PO 04/28/24 17:42 Q4HR PRN PAIN SCALE 4-10(Mod-Sev Amlodipine Besylate 10 mg 04/24/24 16:15 04/25/24 10:10 Amlodipine Besylate 5 Mg Tablet PO 05/24/24 16:14 10 mg QDAY SARA Administration Atorvastatin Calcium 10 mg 04/25/24 21:00 Atorvastatin Calcium 10 Mg Tablet PO 05/25/24 20:59 HS SARA Lidocaine HCl 10 ml/ 0 ml 04/23/24 18:21 Diphenhydramine HCl 25 mg/ Al PO 04/30/24 18:12 Hydrox/Mg Hydrox/Simethicone Q8HR PRN 30 ml/ Nystatin 10 ml Dry Mouth Heparin Sodium (Porcine) 5,000 unit 04/23/24 21:00 04/25/24 10:13 Heparin Sod Inj 5000 Unit/Ml Vial SC 05/07/24 20:59 5,000 unit BID SARA Administration Levothyroxine Sodium 125 mcg/ 150 mcg 04/24/24 06:00 04/25/24 05:50 Levothyroxine Sodium 25 mcg PO 05/24/24 05:59 150 mcg ACBR SARA Administration Ondansetron HCl 4 mg 04/23/24 17:43 04/25/24 11:39 Ondansetron Inj 2 Mg/Ml Inj 2 Ml IV 05/23/24 17:42 4 mg Q6H PRN Administration NAUSEA OR VOMITING Protocol Plan 58 y/o F with PMHx significant for hypertension, hypothyroidism, tonsillar cancer receiving active treatment with radiation and chemotherapy with Dr. Mejia presents to ED from home with chief complaint of nausea vomiting with poor p.o. intake x 4 days, admitted for prerenal MARTIN secondary to dehydration. #Acute renal failure secondary to dehydration #Intractable nausea/vomiting Patient presented with chief complaint of nausea and vomiting with poor p.o. intake x 4 days. On admission patient had MARTIN: BUN 38, creatinine 2.2, EGFR 16. Likely secondary to radiation/chemotherapy treatment for tonsillar cancer. Urinalysis shows potential UTI, likely contaminated, culture pending. Patient received 1 L bolus normal saline in the ED. Patient continues to have no p.o. intake with intractable nausea and vomiting. Requesting PEG tube placement for nutritional support. GI consulted. -IVF: Normal saline at 75 mL/h -Daily labs -Renally dose medications -Avoid nephrotoxins -Encourage oral hydration -Zofran 4 mg IV every 6 hours as needed for nausea -Renal ultrasound ordered, follow-up -Follow-up urine culture -GI consult for PEG tube, appreciate recommendations #Tonsillar cancer, active treatments radiation/chemotherapy Patient is receiving treatment radiation/chemotherapy with Dr. Mejia for tonsillar cancer. Patient reports fatigue for past 9 months since treatments began. Patient also reports she has had increased difficulty eating her usual food, in addition to poor appetite she has had some difficulty swallowing and prefers softer foods. Patient does express intermittent pain with dry mouth. Patient continues to have severe nausea, intractable. Requesting PEG tube placement. -Clear liquid diet -Speech therapy eval, follow-up -Magic mouthwash daily as needed for dry mouth/pain -Consult Dr. Mejia, appreciate further recommendations -GI consult as above. #Suspected depression Patient expressed feelings of anxiety and hopelessness since diagnosis, along with decreased interest in activities. Has not been formally evaluated for this. -Consider PHQ-9 -Follow-up outpatient #Hypertension Patient history as stated. Takes lisinopril at home -Holding home lisinopril due to MARTIN -Started Amlodipine 10mg #Hypothyroidism Patient history as stated. Takes levothyroxine at home. -Resume home meds: Levothyroxine 150 mcg p.o. daily DVT prophylaxis: Heparin GI prophylaxis: None Diet: Clear liquid diet Lines: Peripheral IV Code status: Full code Patient's plan and care discussed with senior resident Dr. Rivas PGY?2 and my attending, Dr. Herman. Truong Eaton MD PGY?1 Attending Provider Attestation/Addendum Mita Martinez, , attest that I was physically present for the flores portions of the service and evaluated the patient with the resident and I reviewed and discussed the case with the resident and agree with the resident's findings and plans of care as documented above Patient seen and eval this a.m. She continues to have nausea and poor p.o. intake. Patient states that she would like to have the PEG tube placed on this admission. Will consult GI. Will need home health upon discharge for PEG tube feedings. Will have dietitian also evaluate nutrition needs. No acute events overnight otherwise
[2024-04-25] MEDS: ATORVASTATIN CALCIUM 10 MG TABLET PO (20:27)
--- NOTE | 2024-04-25 22:01 | PC.NURSE ---
patient c/o feeling dehydrated patient asked if she will still have more IV fluids but per order total of 2000 has been administered, patient has some trouble with swallowing but is trying to drink more water, ice, and juice. Notified Dr. Ibanez of this, to encourage oral rehydration, no other new orders at this time.
--- NOTE | 2024-04-25 22:43 | PD.IMCONS ---
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 She cannot keep anything down I have been consulted for placement of a PEG tube cc:: cc: Mita Herman DO Review of Systems Review of Systems Systems Reviewed: All systems reviewed, normal except as documented Past Medical History Surgical History OTHER SURGICAL HX: Essential hypertension hypothyroidism Meds Home Medications and Allergies Home Medications ?Medication ?Instructions ?Recorded ?Confirmed ?Type atorvastatin 10 mg tablet 10 mg PO QDAY 01/25/24 04/23/24 History levothyroxine 150 mcg tablet 150 mcg PO QDAY 01/25/24 04/23/24 History lisinopril 30 mg tablet 30 mg PO QDAY 01/25/24 04/23/24 History magnesium oxide 420 mg tablet 420 mg PO BID 01/25/24 04/23/24 History potassium chloride 20 mEq 20 meq PO DAILY 04/23/24 04/23/24 History tablet,extended release trazodone 100 mg tablet 100 mg PO DAILY PRN insomnia 04/23/24 04/23/24 History Allergies Allergy/AdvReac Type Severity Reaction Status Date / Time No Known Allergies Allergy Verified 03/16/24 17:34 Exam Vital Signs Temp Pulse Resp BP Pulse Ox O2 Del Method 96.9 F 92 19 128/62 100 Room Air 04/25/24 20:00 04/25/24 20:00 04/25/24 20:00 04/25/24 20:00 04/25/24 20:00 04/25/24 20:00 Constitutional Comments: Chronically ill-appearing Routine Respiratory Exam Comments: Normal to auscultation Results Labs 04/25/24 05:15 04/25/24 13:19 Labs: Short CBC 04/25/24 Range/Units 05:15 WBC 4.6 (3.6-11.0) Thou/mm3 Hgb 10.0 L (12.0-16.0) g/dL Hct 27.1 L (36.0-46.0) % Plt Count 137 L (140-440) Thou/mm3 BMP 04/25/24 04/25/24 05:15 13:19 Sodium 137 134 L Potassium 2.7 L* D 3.5 D Chloride 105 102 Carbon Dioxide 18.6 L 19.3 L BUN 30 H 26 H Creatinine 2.5 H D 2.5 H Glucose 91 111 H Calcium 7.8 L 7.9 L Liver Function 04/25/24 Range/Units 05:15 Total Bilirubin 0.4 (0.3-1.2) mg/dL AST 24 (0-34) U/L ALT 33 (10-49) U/L Alkaline Phosphatase 64 (46-116) U/L Albumin 3.7 (3.5-5.0) gm/dL Assessment and Plan Additional Assessment & Plan Additional Plan: # Failure to thrive # Nausea vomiting # Dehydration # 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 midnight tonight except p.o. meds Other medical problems include # Essential hypertension # Hypothyroidism Thank you once again for the opportunity to participate in the care of this patient
--- NOTE | 2024-04-25 23:07 | PC.NURSE ---
Dr. Morgan at bedside to discuss PEG tube placement, patient c/o nausea and vomiting, requesting to be put on IV fluids for poor oral intake, new orders received.
[2024-04-25] MEDS: DEXTROSE 5%-NS 1,000 ML 75 ML IV (23:24)
[2024-04-26] VITALS (17 sets, daily range): BP systolic 125–176; BP diastolic 72–97; PULSE 87–120; RESP 14–20; TEMP 36–36.8; O2SAT 95–100
--- NOTE | 2024-04-26 04:59 | PC.NURSE ---
patient c/o bright red blood in her spit. Patient did not vomit, Patient states her throat hurts a little and it was the first time that she saw bright red blood. Per patient she flushed it down the toilet but has spit in tissues are now clear. Dr. Ibanez was notified, no new orders received.
[2024-04-26 06:00] LABS: Basophils % (Auto) 1 % (0-2.5); Eosinophils % (Auto) 0 % (0-10); Hematocrit 28.3 % (36.0-46.0); Hemoglobin 10.2 g/dL (12.0-16.0); Immature Granulocytes % (Auto) 1 % (0-0); Immature Granulocytes Auto 0.03 Thou/mm3 (0.00-0.00); Lymphocytes # (Auto) 1.3 Thou/mm3 (1.0-4.8); Lymphocytes % (Auto) 23 % (10-50); Mean Corpuscular Hemoglobin 31.4 pg (25.0-35.0); Mean Corpuscular Volume 87 fL (80-100); Monocytes # (Auto) 0.5 Thou/mm3 (0.0-0.8); Monocytes % (Auto) 9 % (0-12); Neutrophils # (Auto) 3.8 Thou/mm3 (1.8-7.7); Neutrophils % (Auto) 67 % (37-80); Nucleated Red Blood Cell % 0 /100 WBC (0); Platelet Count 152 Thou/mm3 (140-440); RDW Standard Deviation 47.1 fL (36.4-46.3); Red Blood Count 3.25 Miln/mm3 (4.00-5.20); White Blood Count 5.6 Thou/mm3 (3.6-11.0)
[2024-04-26 06:34] LABS: Alanine Aminotransferase 25 U/L (10-49); Albumin, Serum 3.9 gm/dL (3.5-5.0); Albumin/Globulin Ratio 2.1 (1.2-2.2); Alkaline Phosphatase 68 U/L (46-116); Anion Gap 8 (7-16); Aspartate Amino Transferase 19 U/L (0-34); BUN/Creatinine Ratio 10 Ratio (12-20); Bilirubin,Total 0.4 mg/dL (0.3-1.2); Blood Urea Nitrogen 25 mg/dL (9-23); Calcium 8.1 mg/dL (8.3-10.6); Calcium (Corrected) 8.2 mg/dL (8.5-10.1); Carbon Dioxide 20.6 mMol/L (20.0-31.0); Chloride 105 mMol/L (98-107); Creatinine (Component) 2.4 mg/dL (0.6-1.3); Estimated Creatinine Clearance 23.7 mL/min (>60); Globulin 1.9 gm/dL (2.3-3.5); Glucose 112 mg/dL (74-106); Osmolality,Calculated 273 (275-295); Potassium 2.8 mMol/L (3.4-5.1); Sodium 134 mMol/L (136-145); Total Protein 5.8 gm/dL (5.7-8.2); eGFR 23 See Note
[2024-04-26 10:11] LABS: Magnesium 2.9 mg/dL (1.6-2.6)
[2024-04-26] MEDS: POTASSIUM CHL 10 mEq IVPB 10 MEQ/100 ML BAG 100 MEQ IV ×8 (10:38→21:20)
[2024-04-26] MEDS: ONDANSETRON INJ 2 MG/ML INJ 2 ML 4 MG IV ×3 (10:39→21:39)
[2024-04-26] MEDS: HYDROcodone/APAP 5/325 TABLET 1 TAB PO ×2 (10:39→21:21)
[2024-04-26] MEDS: DEXTROSE 5%-NS 1,000 ML 75 ML IV (12:55)
--- NOTE | 2024-04-26 13:53 | ESPR_ITS ---
<Statement entered by Ella Hernández MD - 04/26/24 16:10> I discussed with and supervised the purchasing internship physician who took care of this patient. I personally saw and examined the patient and discussed the assessment and plan with the entire medicine team, including my attending Dr. Herman, I agree with the assessment and plan as documented below Patient seen and examined at bedside today. Labs and imaging reviewed. Overnight she had an episode of phlegm with blood This mother bedside patient patient endorsed that she is very nauseous denies any other acute complaints at this moment, pending PEG tube placement per gastroenterology. Ella Hernández MD PGY-3 Disclaimer: Despite multiple revisions, due to the dictation software being used, the document bellow may not be free of grammatical errors including phonetic/typographic errors. However, this does not deter from our commitment to providing health care in the patient's best interest in mind. Documentation for date of: 04/26/24 Subjective Subjective Interval history: No overnight events. Patient seen and examined at bedside. Patient remains mildly distressed, unable to tolerate any p.o. intake without vomiting. Patient complains of severe nausea, only mild relief from Zofran. Denies fever, chills, chest pain, shortness of breath, weakness. GI consulted, patient to receive PEG tube placement today. Will begin tube feedings tomorrow and advance as tolerated. Exam Vital Signs Temp Pulse Resp BP Pulse Ox O2 Del Method 98.0 F 92 19 136/72 H 98 Room Air 04/26/24 12:00 04/26/24 12:00 04/26/24 12:00 04/26/24 12:00 04/26/24 12:04/26/24 12:00 Narrative Exam PE: Gen: Well-developed and well-nourished. HEENT: NCAT, PERRLA, EOMI, anicteric conjunctivae. CVS: normal S1 and S2. RRR. No M/R/G. Resp: CTA B/L. No rhonchi, rales, crackles or wheezing. Abd: soft, non-tender, non-distended. MSK: Good ROM in BUE & BLE. No edema or rash. Neuro: CN II-XII grossly intact. Strength 5/5 in BUE & BLE. Alert and oriented x3. Psych: appropriate mood and affect. Objective Labs 04/26/24 04:59 04/26/24 13:41 Labs: Laboratory Results - last 24 hr 04/25/24 04/26/24 13:19 04:59 WBC 5.6 RBC 3.25 L Hgb 10.2 L Hct 28.3 L MCV 87 MCH 31.4 MCHC 36.0 RDW Std Deviation 47.1 H Plt Count 152 Neut % (Auto) 67 Lymph % (Auto) 23 [place] % (Auto) 9 Eos % (Auto) 0 Baso % (Auto) 1 Neut # (Auto) 3.8 Lymph # (Auto) 1.3 [place] # (Auto) 0.5 Eos # (Auto) 0.0 Baso # (Auto) 0.0 Immature Gran # (Auto) 0.03 H Absolute Nucleated RBC 0.00 Immature Gran % 1 H Nucleated RBC % 0 Sodium 134 L 134 L Potassium 3.5 D 2.8 L D Chloride 102 105 Carbon Dioxide 19.3 L 20.6 Anion Gap 13 8 BUN 26 H 25 H Creatinine 2.5 H 2.4 H Estim Creat Clear Calc 23.3 L 23.7 L eGFR 22 L 23 L BUN/Creatinine Ratio 10 L 10 L Glucose 111 H 112 H Calculated Osmolality 273 L 273 L Calcium 7.9 L 8.1 L Corrected Calcium 8.2 L Magnesium 2.9 H Total Bilirubin 0.4 AST 19 ALT 25 Alkaline Phosphatase 68 Total Protein 5.8 Albumin 3.9 Globulin 1.9 L Albumin/Globulin Ratio 2.1 Quality Measures Quality Measures VTE prophylaxis Assessment & Plan Assessment Current Active Medications: Generic Name Dose Route Start Last Admin Trade Name Freq PRN Reason Stop Dose Admin Acetaminophen 650 mg 04/24/24 11:31 Acetaminophen 325 Mg Tablet PO 05/23/24 17:42 Q6H PRN Fever >100.4 or pain (1-3) Hydrocodone Bitart/Acetaminophen 1 tab 04/23/24 17:43 04/26/24 10:39 Hydrocodone/Apap 5/325 Tablet PO 04/28/24 17:42 1 tab Q4HR PRN Administration PAIN SCALE 4-10(Mod-Sev Amlodipine Besylate 10 mg 04/24/24 16:15 04/26/24 08:24 Amlodipine Besylate 5 Mg Tablet PO 05/24/24 16:14 Not Given QDAY SAAR Atorvastatin Calcium 10 mg 04/25/24 21:00 04/25/24 20:27 Atorvastatin Calcium 10 Mg Tablet PO 05/25/24 20:59 10 mg HS SARA Administration Lidocaine HCl 10 ml/ 0 ml 04/23/24 18:21 Diphenhydramine HCl 25 mg/ Al PO 04/30/24 18:12 Hydrox/Mg Hydrox/Simethicone Q8HR PRN 30 ml/ Nystatin 10 ml Dry Mouth Heparin Sodium (Porcine) 5,000 unit 04/23/24 21:00 04/26/24 08:21 Heparin Sod Inj 5000 Unit/Ml Vial SC 05/07/24 20:59 Not Given BID SARA Dextrose/Sodium Chloride 1,000 mls @ 75 mls/hr 04/25/24 23:15 04/26/24 12:55 D5-Ns IV 05/25/24 23:14 75 mls/hr .[id number] SARA Administration Potassium Chloride 10 meq in 100 mls @ 100 mls/hr 04/26/24 13:00 04/26/24 12:55 Kcl Ivpb IV 04/26/24 18:59 100 mls/hr Q1H SARA Administration Protocol Levothyroxine Sodium 125 mcg/ 150 mcg 04/24/24 06:00 04/26/24 05:52 Levothyroxine Sodium 25 mcg PO 05/24/24 05:59 Not Given ACBR SARA Ondansetron HCl 4 mg 04/23/24 17:43 04/26/24 10:39 Ondansetron Inj 2 Mg/Ml Inj 2 Ml IV 05/23/24 17:42 4 mg Q6H PRN Administration NAUSEA OR VOMITING Protocol Plan 58 y/o F with PMHx significant for hypertension, hypothyroidism, tonsillar cancer receiving active treatment with radiation and chemotherapy with Dr. Mejia presents to ED from home with chief complaint of nausea vomiting with poor p.o. intake x 4 days, admitted for prerenal MARTIN secondary to dehydration. #Acute renal failure secondary to dehydration #Intractable nausea/vomiting Patient presented with chief complaint of nausea and vomiting with poor p.o. intake x 4 days. On admission patient had MARTIN: BUN 38, creatinine 2.2, EGFR 16. Likely secondary to radiation/chemotherapy treatment for tonsillar cancer. Urinalysis shows potential UTI, likely contaminated, culture pending. Patient received 1 L bolus normal saline in the ED. Patient continues to have no p.o. intake with intractable nausea and vomiting. Requesting PEG tube placement for nutritional support. GI consulted. Urine culture negative. Renal ultrasound showed small right kidney with cortical thinning and bilateral renal parenchymal scar formation. -IVF: Normal saline at 75 mL/h -Daily labs -Renally dose medications -Avoid nephrotoxins -Encourage oral hydration -Zofran 4 mg IV every 6 hours as needed for nausea -GI consult for PEG tube, appreciate recommendations #Tonsillar cancer, active treatments radiation/chemotherapy Patient is receiving treatment radiation/chemotherapy with Dr. Mejia for tonsillar cancer. Patient reports fatigue for past 9 months since treatments began. Patient also reports she has had increased difficulty eating her usual food, in addition to poor appetite she has had some difficulty swallowing and prefers softer foods. Patient does express intermittent pain with dry mouth. Patient continues to have severe nausea, intractable. Requesting PEG tube placement. -Clear liquid diet -Speech therapy eval, follow-up -Magic mouthwash daily as needed for dry mouth/pain -Consult Dr. Mejia, appreciate further recommendations -GI consult as above. #Suspected depression Patient expressed feelings of anxiety and hopelessness since diagnosis, along with decreased interest in activities. Has not been formally evaluated for this. -Consider PHQ-9 -Follow-up outpatient #Hypertension Patient history as stated. Takes lisinopril at home -Holding home lisinopril due to MARTIN -Started Amlodipine 10mg #Hypothyroidism Patient history as stated. Takes levothyroxine at home. -Resume home meds: Levothyroxine 150 mcg p.o. daily DVT prophylaxis: Heparin GI prophylaxis: None Diet: Clear liquid diet Lines: Peripheral IV Code status: Full code Patient's plan and care discussed with senior resident Dr. Cheema PGY?3 and my attending, Dr. Herman. Truong Eaton MD PGY?1 Attending Provider Attestation/Addendum I, Mita Herman, DO, attest that I was physically present for the flores portions of the service and evaluated the patient with the resident and I reviewed and discussed the case with the resident and agree with the resident's findings and plans of care as documented above Patient seen and evaluated this a.m. She states that her nausea is controlled with Zofran. She is pending PEG tube placement Thursday. Dietitian recommendations noted in chart. Will order home health for PEG tube feedings. Anticipate discharge within the next 48 hours once patient is at goal with PEG tube feedings. Patient has no other complaints otherwise
[2024-04-26 14:05] LABS: Potassium 3.4 mMol/L (3.4-5.1)
--- NOTE | 2024-04-26 19:00 | PC.NURSE ---
pt to endo
--- NOTE | 2024-04-26 19:55 | SUR.PHASEI ---
Report received from Serena WEBER. Resting with eyes closed. No s/o distress or discomfort. Gastric tube intact, dressing C/D/I. Respirations equal and unlabored. Opens eyes and responds to questions and commands appropriately.
[2024-04-26] MEDS: ATORVASTATIN CALCIUM 10 MG TABLET PO (21:21)
[2024-04-27] VITALS (7 sets, daily range): BP systolic 119–161; BP diastolic 81–85; PULSE 91–104; RESP 16–18; TEMP 36.1–37.1; O2SAT 96–97
[2024-04-27] MEDS: HYDROcodone/APAP 5/325 TABLET 1 TAB PO ×4 (03:13→20:24)
[2024-04-27] MEDS: ONDANSETRON INJ 2 MG/ML INJ 2 ML 4 MG IV ×3 (05:47→19:17)
[2024-04-27] MEDS: LEVOTHYROXINE SODIUM 125 MCG, LEVOTHYROXINE SODIUM 25 MCG 150 MCG PO (05:48)
[2024-04-27] MEDS: DEXTROSE 5%-NS 1,000 ML 75 ML IV (05:54)
[2024-04-27 05:57] LABS: Basophils % (Auto) 0 % (0-2.5); Eosinophils % (Auto) 0 % (0-10); Hematocrit 23.6 % (36.0-46.0); Immature Granulocytes % (Auto) 1 % (0-0); Immature Granulocytes Auto 0.03 Thou/mm3 (0.00-0.00); Lymphocytes # (Auto) 0.5 Thou/mm3 (1.0-4.8); Lymphocytes % (Auto) 10 % (10-50); Mean Corpuscular HGB Conc 36.9 g/dl (31.0-37.0); Mean Corpuscular Hemoglobin 32.3 pg (25.0-35.0); Mean Corpuscular Volume 88 fL (80-100); Monocytes # (Auto) 0.4 Thou/mm3 (0.0-0.8); Monocytes % (Auto) 8 % (0-12); Neutrophils # (Auto) 3.9 Thou/mm3 (1.8-7.7); Neutrophils % (Auto) 80 % (37-80); Nucleated Red Blood Cell % 0 /100 WBC (0); Platelet Count 108 Thou/mm3 (140-440); RDW Standard Deviation 47.8 fL (36.4-46.3); Red Blood Count 2.69 Miln/mm3 (4.00-5.20); White Blood Count 4.9 Thou/mm3 (3.6-11.0)
[2024-04-27 06:11] LABS: Hemoglobin 8.7 g/dL (12.0-16.0)
[2024-04-27 06:42] LABS: Alanine Aminotransferase 16 U/L (10-49); Albumin, Serum 3.3 gm/dL (3.5-5.0); Albumin/Globulin Ratio 1.9 (1.2-2.2); Alkaline Phosphatase 59 U/L (46-116); Anion Gap 11 (7-16); Aspartate Amino Transferase 13 U/L (0-34); BUN/Creatinine Ratio 9 Ratio (12-20); Bilirubin,Total 0.3 mg/dL (0.3-1.2); Blood Urea Nitrogen 19 mg/dL (9-23); Calcium 7.7 mg/dL (8.3-10.6); Calcium (Corrected) 8.3 mg/dL (8.5-10.1); Carbon Dioxide 19.3 mMol/L (20.0-31.0); Chloride 104 mMol/L (98-107); Creatinine (Component) 2.2 mg/dL (0.6-1.3); Estimated Creatinine Clearance 25.9 mL/min (>60); Globulin 1.7 gm/dL (2.3-3.5); Glucose 105 mg/dL (74-106); Magnesium 1.7 mg/dL (1.6-2.6); Osmolality,Calculated 270 (275-295); Phosphorous 2.1 mg/dL (2.4-5.1); Potassium 3.2 mMol/L (3.4-5.1); Sodium 134 mMol/L (136-145); eGFR 25 See Note
[2024-04-27] MEDS: HEPARIN SOD INJ 5000 UNIT/ML VIAL SC ×2 (08:48→20:25)
[2024-04-27] MEDS: POTASSIUM CHLORIDE 10% 20 MEQ/15 ML UDC 40 MEQ GT (08:48)
[2024-04-27] MEDS: amLODIPine BESYLATE 5 MG TABLET 10 MG PO (08:49)
--- NOTE | 2024-04-27 09:24 | PC.DIETICIAN ---
Addendum entered by Rohith Shane, RD 04/29/24 11:52: Bolus tube feeding recommendations for home: Jevity 1.5 via PEG tube by bolus syringe: 8 oz (1 container) 6x/day?Or 16 oz (2 containers) 3x/day. Flush with 30 ml water before and after feeds. Water flushes of 150 ml every 4 hours (or per MD). Provides: 2130 kcal, 91 g prot, 1080 ml free water, 1422 ml total volume. Original Note: Nutrition prescription Jevity 1.5 at 20 ml/hr via PEG tube by pump. Advance 10 ml every 8 hrs to goal rate of 60 ml/hr x 22 hrs. If no IV fluids, water flushes of 150ml Q 4hrs (or per MD). -Hold TF for one hour before and after levothyroxine administration-
[2024-04-27] MEDS: POT PHOS 15 mMol in NS 250 ML 15 MMOL/250 ML BAG 62.5 MMOL IV ×2 (11:11→15:13)
--- NOTE | 2024-04-27 15:08 | ESPR_ITS ---
<Statement entered by Elena Rivas MD - 04/27/24 15:39> I discussed with and supervised the regulatory affairs intern physician who took care of this patient. I personally saw and examined the patient and discussed the assessment and plan with the entire medicine team, including my attending , I agree with most of the assessment and plan as documented below Elena Rivas M.D. PGY-2 Documentation for date of: 04/27/24 Subjective Subjective Interval history: No overnight events. Patient seen examined at bedside, mild distress. Reports continuing nausea, inability tolerate p.o. intake, mild improvement with Zofran. Denies abdominal pain, shortness of breath, chest pain, fever, chills. Begin tube feeds and advance as tolerated. Will provide education for G-tube management. Exam Vital Signs Temp Pulse Resp BP Pulse Ox O2 Del Method O2 Flow Rate 98.8 F 96 17 119/85 H 96 Room Air 3 04/27/24 12:04/27/24 12:04/27/24 12:04/27/24 12:04/27/24 12:04/27/24 12:04/26/24 19:45 Narrative Exam PE: Gen: Well-developed and well-nourished. HEENT: NCAT, PERRLA, EOMI, anicteric conjunctivae. CVS: normal S1 and S2. RRR. No M/R/G. Resp: CTA B/L. No rhonchi, rales, crackles or wheezing. Abd: soft, non-tender, non-distended. PEG tube placed, nontender, no leakage. MSK: Good ROM in BUE & BLE. No edema or rash. Neuro: CN II-XII grossly intact. Strength 5/5 in BUE & BLE. Alert and oriented x3. Psych: appropriate mood and affect. Objective Labs 04/27/24 04:32 04/27/24 04:32 Labs: Laboratory Results - last 24 hr 04/27/24 04:32 WBC 4.9 RBC 2.69 L Hgb 8.7 L Hct 23.6 L MCV 88 MCH 32.3 MCHC 36.9 RDW Std Deviation 47.8 H Plt Count 108 L D Neut % (Auto) 80 Lymph % (Auto) 10 [place] % (Auto) 8 Eos % (Auto) 0 Baso % (Auto) 0 Neut # (Auto) 3.9 Lymph # (Auto) 0.5 L [place] # (Auto) 0.4 Eos # (Auto) 0.0 Baso # (Auto) 0.0 Immature Gran # (Auto) 0.03 H Absolute Nucleated RBC 0.00 Immature Gran % 1 H Nucleated RBC % 0 Sodium 134 L Potassium 3.2 L Chloride 104 Carbon Dioxide 19.3 L Anion Gap 11 BUN 19 Creatinine 2.2 H Estim Creat Clear Calc 25.9 L eGFR 25 L BUN/Creatinine Ratio 9 L Glucose 105 Calculated Osmolality 270 L Calcium 7.7 L Corrected Calcium 8.3 L Phosphorus 2.1 L Magnesium 1.7 Total Bilirubin 0.3 AST 13 ALT 16 Alkaline Phosphatase 59 Total Protein 5.0 L Albumin 3.3 L D Globulin 1.7 L Albumin/Globulin Ratio 1.9 Quality Measures Quality Measures VTE prophylaxis Assessment & Plan Assessment Current Active Medications: Generic Name Dose Route Start Last Admin Trade Name Freq PRN Reason Stop Dose Admin Acetaminophen 650 mg 04/24/24 11:31 Acetaminophen 325 Mg Tablet PO 05/23/24 17:42 Q6H PRN Fever >100.4 or pain (1-3) Hydrocodone Bitart/Acetaminophen 1 tab 04/26/24 23:23 04/27/24 08:48 Hydrocodone/Apap 5/325 Tablet PO 05/01/24 17:42 1 tab Q4HR PRN Administration Pain Scale 4-7(Mod-Sev Amlodipine Besylate 10 mg 04/24/24 16:15 04/27/24 08:49 Amlodipine Besylate 5 Mg Tablet PO 05/24/24 16:14 10 mg QDAY SARA Administration Atorvastatin Calcium 10 mg 04/25/24 21:00 04/26/24 21:21 Atorvastatin Calcium 10 Mg Tablet PO 05/25/24 20:59 10 mg HS SARA Administration Lidocaine HCl 10 ml/ 0 ml 04/23/24 18:21 Diphenhydramine HCl 25 mg/ Al PO 04/30/24 18:12 Hydrox/Mg Hydrox/Simethicone Q8HR PRN 30 ml/ Nystatin 10 ml Dry Mouth Heparin Sodium (Porcine) 5,000 unit 04/23/24 21:00 04/27/24 08:48 Heparin Sod Inj 5000 Unit/Ml Vial SC 05/07/24 20:59 5,000 unit BID SARA Administration Hydromorphone HCl 0.5 mg 04/26/24 21:26 Hydromorphone Inj 2 Mg/Ml Vial IVP 05/01/24 21:25 Q4HR PRN breakthrough pain or pain 8-10 Dextrose/Sodium Chloride 1,000 mls @ 75 mls/hr 04/25/24 23:15 04/27/24 05:54 D5-Ns IV 05/25/24 23:14 75 mls/hr .[id number] SARA Administration Potassium Phosphate 15 mmol in 250 mls @ 62.5 mls/hr 04/27/24 10:33 04/27/24 11:11 Pot Phos 15 Mmol In Ns 250 Ml IV 04/27/24 18:32 62.5 mls/hr Q4H SARA Administration Levothyroxine Sodium 125 mcg/ 150 mcg 04/24/24 06:00 04/27/24 05:48 Levothyroxine Sodium 25 mcg PO 05/24/24 05:59 150 mcg ACBR SARA Administration Ondansetron HCl 4 mg 04/23/24 17:43 04/27/24 12:23 Ondansetron Inj 2 Mg/Ml Inj 2 Ml IV 05/23/24 17:42 4 mg Q6H PRN Administration NAUSEA OR VOMITING Protocol Plan 58 y/o F with PMHx significant for hypertension, hypothyroidism, tonsillar cancer receiving active treatment with radiation and chemotherapy with Dr. Mejia presents to ED from home with chief complaint of nausea vomiting with poor p.o. intake x 4 days, admitted for prerenal MARTIN secondary to dehydration. #Acute renal failure secondary to dehydration, improving #Intractable nausea/vomiting Patient presented with chief complaint of nausea and vomiting with poor p.o. intake x 4 days. On admission patient had MARTIN: BUN 38, creatinine 2.2, EGFR 16. Likely secondary to radiation/chemotherapy treatment for tonsillar cancer. Urinalysis shows potential UTI, likely contaminated, culture pending. Patient received 1 L bolus normal saline in the ED. Patient continues to have no p.o. intake with intractable nausea and vomiting. Requesting PEG tube placement for nutritional support. GI consulted. Urine culture negative. Renal ultrasound showed small right kidney with cortical thinning and bilateral renal parenchymal scar formation. Patient had PEG tube placed for nutritional support. Procedure tolerated well. Dietary consulted for G-tube feeds and patient education. -IVF: Normal saline at 75 mL/h -Daily labs -Renally dose medications -Avoid nephrotoxins -Encourage oral hydration -Zofran 4 mg IV every 6 hours as needed for nausea -GI consult for PEG tube, appreciate recommendations -Dietary consulted, appreciate recommendations -Tube feeds initiated, will advance as tolerated #Tonsillar cancer, active treatments radiation/chemotherapy Patient is receiving treatment radiation/chemotherapy with Dr. Mejia for tonsillar cancer. Patient reports fatigue for past 9 months since treatments began. Patient also reports she has had increased difficulty eating her usual food, in addition to poor appetite she has had some difficulty swallowing and prefers softer foods. Patient does express intermittent pain with dry mouth. Patient continues to have severe nausea, intractable. Requesting PEG tube placement. Speech therapy eval recommended dysphagia level 2 diet. PEG tube placed, see above. -Speech therapy eval, follow-up -Magic mouthwash daily as needed for dry mouth/pain -Consult Dr. Mejia, appreciate further recommendations -GI consult as above. #Suspected depression Patient expressed feelings of anxiety and hopelessness since diagnosis, along with decreased interest in activities. Has not been formally evaluated for this. -Consider PHQ-9 -Follow-up outpatient #Hypertension Patient history as stated. Takes lisinopril at home -Holding home lisinopril due to MARTIN -Started Amlodipine 10mg #Hypothyroidism Patient history as stated. Takes levothyroxine at home. -Resume home meds: Levothyroxine 150 mcg p.o. daily DVT prophylaxis: Heparin GI prophylaxis: None Diet: Clear liquid diet Lines: Peripheral IV Code status: Full code Patient's plan and care discussed with senior resident Dr. Rivas PGY?[address] Elias. Truong Eaton MD PGY?1 Attending Provider Attestation/Addendum I attest that I was physically present for the evaluation, physical examination, lab and imaging review of the patient with the residents. I discussed the case with the residents and agree with the findings and plans of care as documented above. At bedside today, patient continues to complaint of mild nausea. Denied any pain around incision site for PEG tube. Started on tube feeding, we will closely monitor tolerance and increase her tube feedings as per dietary recommendation. Gastroenterology following, IV Zofran and normal saline in place. We will plan for discharge if patient able to tolerate tube feed well. Janeth Elias MD
[2024-04-27] MEDS: ATORVASTATIN CALCIUM 10 MG TABLET PO (20:24)
--- NOTE | 2024-04-27 23:02 | PD.IMPROG ---
Documentation for date of: 04/27/24 Subjective Subjective Interval history: Patient evaluated PEG tube no drainage Exam Vital Signs Temp Pulse Resp BP Pulse Ox O2 Del Method O2 Flow Rate 97.2 F 91 18 139/84 H 96 Room Air 3 04/27/24 20:00 04/27/24 20:00 04/27/24 20:00 04/27/24 20:00 04/27/24 20:00 04/27/24 20:00 04/27/24 16:00 Objective Labs 04/27/24 04:32 04/27/24 04:32 Labs: Laboratory Results - last 24 hr 04/27/24 04:32 WBC 4.9 RBC 2.69 L Hgb 8.7 L Hct 23.6 L MCV 88 MCH 32.3 MCHC 36.9 RDW Std Deviation 47.8 H Plt Count 108 L D Neut % (Auto) 80 Lymph % (Auto) 10 [place] % (Auto) 8 Eos % (Auto) 0 Baso % (Auto) 0 Neut # (Auto) 3.9 Lymph # (Auto) 0.5 L [place] # (Auto) 0.4 Eos # (Auto) 0.0 Baso # (Auto) 0.0 Immature Gran # (Auto) 0.03 H Absolute Nucleated RBC 0.00 Immature Gran % 1 H Nucleated RBC % 0 Sodium 134 L Potassium 3.2 L Chloride 104 Carbon Dioxide 19.3 L Anion Gap 11 BUN 19 Creatinine 2.2 H Estim Creat Clear Calc 25.9 L eGFR 25 L BUN/Creatinine Ratio 9 L Glucose 105 Calculated Osmolality 270 L Calcium 7.7 L Corrected Calcium 8.3 L Phosphorus 2.1 L Magnesium 1.7 Total Bilirubin 0.3 AST 13 ALT 16 Alkaline Phosphatase 59 Total Protein 5.0 L Albumin 3.3 L D Globulin 1.7 L Albumin/Globulin Ratio 1.9 Impressions Impression: Failure to thrive Nausea vomiting Enteral hyperalimentation via PEG tube Assessment & Plan A&P Narrative # Failure to thrive # Nausea vomiting # Dehydration # 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 midnight tonight except p.o. meds Other medical problems include # Essential hypertension # Hypothyroidism Thank you once again for the opportunity to participate in the care of this patient Time Spent With Patient Time: Total time spent is greater than 50% in coordination of care (as documented) at patient's floor/unit and/or counseling patient:
[2024-04-28] VITALS (7 sets, daily range): BP systolic 122–145; BP diastolic 71–86; PULSE 88–102; RESP 15–17; TEMP 36.1–36.9; O2SAT 93–96
[2024-04-28] MEDS: ONDANSETRON INJ 2 MG/ML INJ 2 ML 4 MG IV ×2 (03:05→10:21)
[2024-04-28] MEDS: HYDROcodone/APAP 5/325 TABLET 1 TAB PO (03:05)
[2024-04-28] MEDS: DEXTROSE 5%-NS 1,000 ML 75 ML IV (03:32)
[2024-04-28] MEDS: LEVOTHYROXINE SODIUM 125 MCG, LEVOTHYROXINE SODIUM 25 MCG 150 MCG PO (05:00)
[2024-04-28 05:58] LABS: Basophils % (Auto) 0 % (0-2.5); Eosinophils % (Auto) 0 % (0-10); Hematocrit 22.6 % (36.0-46.0); Immature Granulocytes % (Auto) 0 % (0-0); Immature Granulocytes Auto 0.02 Thou/mm3 (0.00-0.00); Lymphocytes # (Auto) 0.6 Thou/mm3 (1.0-4.8); Lymphocytes % (Auto) 12 % (10-50); Mean Corpuscular HGB Conc 35.4 g/dl (31.0-37.0); Mean Corpuscular Hemoglobin 31.7 pg (25.0-35.0); Mean Corpuscular Volume 90 fL (80-100); Monocytes # (Auto) 0.4 Thou/mm3 (0.0-0.8); Monocytes % (Auto) 8 % (0-12); Neutrophils # (Auto) 4.1 Thou/mm3 (1.8-7.7); Neutrophils % (Auto) 79 % (37-80); Nucleated Red Blood Cell % 0 /100 WBC (0); Platelet Count 94 Thou/mm3 (140-440); RDW Standard Deviation 48.9 fL (36.4-46.3); Red Blood Count 2.52 Miln/mm3 (4.00-5.20); White Blood Count 5.2 Thou/mm3 (3.6-11.0)
[2024-04-28 06:45] LABS: Anion Gap 9 (7-16); BUN/Creatinine Ratio 9 Ratio (12-20); Blood Urea Nitrogen 19 mg/dL (9-23); Carbon Dioxide 20.6 mMol/L (20.0-31.0); Chloride 107 mMol/L (98-107); Creatinine (Component) 2.2 mg/dL (0.6-1.3); Estimated Creatinine Clearance 25.9 mL/min (>60); Glucose 107 mg/dL (74-106); Potassium 3.4 mMol/L (3.4-5.1); Sodium 137 mMol/L (136-145); eGFR 25 See Note
[2024-04-28 06:46] LABS: Alanine Aminotransferase < 7 U/L (10-49); Albumin, Serum 3.2 gm/dL (3.5-5.0); Albumin/Globulin Ratio 1.9 (1.2-2.2); Alkaline Phosphatase 66 U/L (46-116); Aspartate Amino Transferase 15 U/L (0-34); Bilirubin,Total 0.2 mg/dL (0.3-1.2); Calcium 7.5 mg/dL (8.3-10.6); Calcium (Corrected) 8.1 mg/dL (8.5-10.1); Globulin 1.7 gm/dL (2.3-3.5); Magnesium 1.2 mg/dL (1.6-2.6); Osmolality,Calculated 276 (275-295); Phosphorous 3.6 mg/dL (2.4-5.1); Total Protein 4.9 gm/dL (5.7-8.2)
--- NOTE | 2024-04-28 08:01 | PCS.ST ---
A PEG tube was placed on to remove patient from caseload at this time.
[2024-04-28] MEDS: Magnesium Sulfate 4 GM Ivpb 4 GM/50 ML BAG IV ×3 (10:01→19:07)
[2024-04-28] MEDS: HEPARIN SOD INJ 5000 UNIT/ML VIAL SC ×2 (10:02→20:51)
[2024-04-28] MEDS: Calcium Chloride 10% Inj 10 ML in SODIUM CHLORIDE 0.9% 100 ML 110 ML IV (10:02)
[2024-04-28] MEDS: amLODIPine BESYLATE 5 MG TABLET 10 MG PO (10:03)
--- NOTE | 2024-04-28 10:11 | EKG_ITS ---
[facility] Test Date: 2024-04-28 Pat Name: SHEILA LANGE Department: Room: S374A Gender: Female Research Manager: AVILA : 1965 Requested By: Truong Ge Order Number: [id number] Reading MD: Truong Ge Measurements Intervals [place] Rate: 94 P: -11 NM: 116 QRS: 28 QRSD: 106 T: 18 QT: 390 QTc: 490 Interpretive Statements SINUS RHYTHM WITH SHORT NM INTERVAL LOW QRS VOLTAGE IN PRECORDIAL LEADS ST DEVIATION AND MODERATE T-WAVE ABNORMALITY, CONSIDER ANTERIOR ISCHEMIA Compared to ECG 03/16/2024 18:35:07 Short NM interval now present Low QRS voltage now present Sinus tachycardia no longer present T-wave abnormality still present Possible ischemia still present /store/S0/[id number]/[id number].pdf
[2024-04-28] MEDS: HYDROmorphone INJ 2 MG/ML VIAL 0.5 MG IVP ×2 (10:21→17:05)
[2024-04-28 13:33] LABS: Magnesium 1.2 mg/dL (1.6-2.6)
--- NOTE | 2024-04-28 14:00 | ESPR_ITS ---
<Statement entered by Elena Rivas MD - 04/28/24 15:37> I discussed with and supervised the kinesiology internship physician who took care of this patient. I personally saw and examined the patient and discussed the assessment and plan with the entire medicine team, including my attending Dr. Elias, I agree with most of the assessment and plan as documented below Elena Rivas M.D. PGY-2 Documentation for date of: 04/28/24 Subjective Subjective Interval history: No overnight events. Patient seen examined at bedside, mild distress. Patient reports improvement in nausea, tolerating tube feeds well without vomiting. Patient endorses several days of constipation, possibly related to poor p.o. intake. Continue to advance tube feeds. Electrolytes low, replete, continue to monitor. Added Reglan for additional antiemetics. Exam Vital Signs Temp Pulse Resp BP Pulse Ox O2 Del Method O2 Flow Rate 98.4 F 96 16 122/71 93 L Room Air 3 04/28/24 12:00 04/28/24 12:04/28/24 12:04/28/24 12:00 04/28/24 12:00 04/28/24 12:04/27/24 16:00 Narrative Exam PE: Gen: Well-developed and well-nourished. HEENT: NCAT, PERRLA, EOMI, anicteric conjunctivae. CVS: normal S1 and S2. RRR. No M/R/G. Resp: CTA B/L. No rhonchi, rales, crackles or wheezing. Abd: soft, non-tender, non-distended. PEG tube placed, nontender, no leakage. MSK: Good ROM in BUE & BLE. No edema or rash. Neuro: CN II-XII grossly intact. Strength 5/5 in BUE & BLE. Alert and oriented x3. Psych: appropriate mood and affect. Objective Labs 04/28/24 04:49 04/28/24 04:49 Labs: Laboratory Results - last 24 hr 04/28/24 04/28/24 04:49 12:50 WBC 5.2 RBC 2.52 L Hgb 8.0 L Hct 22.6 L MCV 90 MCH 31.7 MCHC 35.4 RDW Std Deviation 48.9 H Plt Count 94 L Neut % (Auto) 79 Lymph % (Auto) 12 [place] % (Auto) 8 Eos % (Auto) 0 Baso % (Auto) 0 Neut # (Auto) 4.1 Lymph # (Auto) 0.6 L [place] # (Auto) 0.4 Eos # (Auto) 0.0 Baso # (Auto) 0.0 Immature Gran # (Auto) 0.02 H Absolute Nucleated RBC 0.00 Immature Gran % 0 Nucleated RBC % 0 Sodium 137 Potassium 3.4 Chloride 107 Carbon Dioxide 20.6 Anion Gap 9 BUN 19 Creatinine 2.2 H Estim Creat Clear Calc 25.9 L eGFR 25 L BUN/Creatinine Ratio 9 L Glucose 107 H Calculated Osmolality 276 Calcium 7.5 L Corrected Calcium 8.1 L Phosphorus 3.6 Magnesium 1.2 L 1.2 L Total Bilirubin 0.2 L AST 15 ALT < 7 L Alkaline Phosphatase 66 Total Protein 4.9 L Albumin 3.2 L Globulin 1.7 L Albumin/Globulin Ratio 1.9 Quality Measures Quality Measures VTE prophylaxis Assessment & Plan Assessment Current Active Medications: Generic Name Dose Route Start Last Admin Trade Name Freq PRN Reason Stop Dose Admin Acetaminophen 650 mg 04/24/24 11:31 Acetaminophen 325 Mg Tablet PO 05/23/24 17:42 Q6H PRN Fever >100.4 or pain (1-3) Hydrocodone Bitart/Acetaminophen 1 tab 04/26/24 23:23 04/28/24 03:05 Hydrocodone/Apap 5/325 Tablet PO 05/01/24 17:42 1 tab Q4HR PRN Administration Pain Scale 4-7(Mod-Sev Amlodipine Besylate 10 mg 04/24/24 16:15 04/28/24 10:03 Amlodipine Besylate 5 Mg Tablet PO 05/24/24 16:14 10 mg QDAY SARA Administration Atorvastatin Calcium 10 mg 04/25/24 21:00 04/27/24 20:24 Atorvastatin Calcium 10 Mg Tablet PO 05/25/24 20:59 10 mg HS SARA Administration Lidocaine HCl 10 ml/ 0 ml 04/23/24 18:21 Diphenhydramine HCl 25 mg/ Al PO 04/30/24 18:12 Hydrox/Mg Hydrox/Simethicone Q8HR PRN 30 ml/ Nystatin 10 ml Dry Mouth Heparin Sodium (Porcine) 5,000 unit 04/23/24 21:00 04/28/24 10:02 Heparin Sod Inj 5000 Unit/Ml Vial SC 05/07/24 20:59 5,000 unit BID SARA Administration Hydromorphone HCl 0.5 mg 04/26/24 21:26 04/28/24 10:21 Hydromorphone Inj 2 Mg/Ml Vial IVP 05/01/24 21:25 0.5 mg Q4HR PRN Administration breakthrough pain or pain 8-10 Magnesium Sulfate 4 gm in 50 mls @ 12.5 mls/hr 04/28/24 12:15 Magnesium Sulfate Ivpb IV 04/28/24 16:14 X1 ONE Levothyroxine Sodium 125 mcg/ 150 mcg 04/24/24 06:00 04/28/24 05:00 Levothyroxine Sodium 25 mcg PO 05/24/24 05:59 150 mcg ACBR SARA Administration Metoclopramide HCl 10 mg 04/28/24 10:11 Metoclopramide Inj 5 Mg/Ml Vial 2 Ml IVP 05/28/24 10:10 Q6HR PRN NAUSEA OR VOMITING Protocol Ondansetron HCl 4 mg 04/23/24 17:43 04/28/24 10:21 Ondansetron Inj 2 Mg/Ml Inj 2 Ml IV 05/23/24 17:42 4 mg Q6H PRN Administration NAUSEA OR VOMITING Protocol Plan 58 y/o F with PMHx significant for hypertension, hypothyroidism, tonsillar cancer receiving active treatment with radiation and chemotherapy with Dr. Mejia presents to ED from home with chief complaint of nausea vomiting with poor p.o. intake x 4 days, admitted for prerenal MARTIN secondary to dehydration. #Acute renal failure secondary to dehydration, improving #Intractable nausea/vomiting Patient presented with chief complaint of nausea and vomiting with poor p.o. intake x 4 days. On admission patient had MARTIN: BUN 38, creatinine 2.2, EGFR 16. Likely secondary to radiation/chemotherapy treatment for tonsillar cancer. Urinalysis shows potential UTI, likely contaminated, culture pending. Patient received 1 L bolus normal saline in the ED. Patient continues to have no p.o. intake with intractable nausea and vomiting. Requesting PEG tube placement for nutritional support. GI consulted. Urine culture negative. Renal ultrasound showed small right kidney with cortical thinning and bilateral renal parenchymal scar formation. Patient had PEG tube placed for nutritional support. Procedure tolerated well. Dietary consulted for G-tube feeds and patient education. IVF discontinued, tube feeds well-tolerated. -Daily labs -Renally dose medications -Avoid nephrotoxins -Encourage oral hydration -Zofran 4 mg IV every 6 hours as needed for nausea -GI consult for PEG tube, appreciate recommendations -Dietary consulted, appreciate recommendations -Tube feeds initiated, will advance as tolerated #Refeeding syndrome Patient had poor/no p.o. intake for at least a week. Patient has just resumed tube feeds, concern for refeeding syndrome due to new food. Patient showed several electrolyte abnormalities, low magnesium and calcium, repleted -Monitor electrolytes daily -Replete electrolytes as needed #Tonsillar cancer, active treatments radiation/chemotherapy Patient is receiving treatment radiation/chemotherapy with Dr. Mejia for tonsillar cancer. Patient reports fatigue for past 9 months since treatments began. Patient also reports she has had increased difficulty eating her usual food, in addition to poor appetite she has had some difficulty swallowing and prefers softer foods. Patient does express intermittent pain with dry mouth. Patient continues to have severe nausea, intractable. Requesting PEG tube placement. Speech therapy eval recommended dysphagia level 2 diet. PEG tube placed, see above. -Speech therapy eval, follow-up -Magic mouthwash daily as needed for dry mouth/pain -Consult Dr. Mejia, appreciate further recommendations -GI consult as above. #Suspected depression Patient expressed feelings of anxiety and hopelessness since diagnosis, along with decreased interest in activities. Has not been formally evaluated for this. -Consider PHQ-9 -Follow-up outpatient #Hypertension Patient history as stated. Takes lisinopril at home -Holding home lisinopril due to MARTIN -Started Amlodipine 10mg #Hypothyroidism Patient history as stated. Takes levothyroxine at home. -Resume home meds: Levothyroxine 150 mcg p.o. daily DVT prophylaxis: Heparin GI prophylaxis: None Diet: Tube feeds Lines: Peripheral IV Code status: Full code Patient's plan and care discussed with senior resident Dr. Rivas PGY?[address] Elias. Truong Eaton MD PGY?1 Attending Provider Attestation/Addendum I attest that I was physically present for the evaluation, physical examination, lab and imaging review of the patient with the residents. I discussed the case with the residents and agree with the findings and plans of care as documented above. At bedside today, patient is states that her nausea has improved compared to yesterday with Zofran. She has been started on tube feeds, 40 cc/h this morning. Patient has not had a bowel movement for several days, likely secondary to diarrhea followed by poor oral intake. We will add as needed Reglan along with Zofran for nausea and continue to increase her tube feeds as tolerated. We will discontinue IV hydration once she continues to tolerate her feeds. Hemoglobin this morning noted to be 8.0, no evidence of active bleeding, we will continue to monitor closely. We will also continue to monitor electrolytes closely for possible refeeding syndrome. Janeth Elias MD
[2024-04-28 15:58] LABS: Hematocrit 24.1 % (36.0-46.0)
[2024-04-28 16:34] LABS: Hemoglobin 8.6 g/dL (12.0-16.0)
[2024-04-28] MEDS: METOCLOPRAMIDE INJ 5 MG/ML VIAL 2 ML 10 MG IVP (17:02)
[2024-04-28 17:07] LABS: Albumin, Serum 3.3 gm/dL (3.5-5.0); Anion Gap 11 (7-16); BUN/Creatinine Ratio 10 Ratio (12-20); Blood Urea Nitrogen 20 mg/dL (9-23); Calcium 7.6 mg/dL (8.3-10.6); Calcium (Corrected) 8.2 mg/dL (8.5-10.1); Chloride 105 mMol/L (98-107); Estimated Creatinine Clearance 28.5 mL/min (>60); Glucose 134 mg/dL (74-106); Magnesium 2.5 mg/dL (1.6-2.6); Osmolality,Calculated 278 (275-295); Potassium 3.1 mMol/L (3.4-5.1); Sodium 137 mMol/L (136-145); eGFR 28 See Note
[2024-04-28] MEDS: POTASSIUM CHLORIDE 10% 20 MEQ/15 ML UDC 40 MEQ GT (19:08)
[2024-04-28] MEDS: ATORVASTATIN CALCIUM 10 MG TABLET PO (20:51)
--- NOTE | 2024-04-28 22:01 | PD.IMPROG ---
Documentation for date of: 04/28/24 Subjective Subjective Interval history: Patient evaluated No drainage the PEG site Exam Vital Signs Temp Pulse Resp BP Pulse Ox O2 Del Method O2 Flow Rate 97.8 F 98 17 131/76 H 93 L Room Air 3 04/28/24 20:00 04/28/24 20:00 04/28/24 20:00 04/28/24 20:00 04/28/24 20:00 04/28/24 20:00 04/27/24 16:00 Objective Labs 04/28/24 15:10 04/28/24 16:30 Labs: Laboratory Results - last 24 hr 04/28/24 04/28/24 04/28/24 04:49 12:50 15:10 WBC 5.2 RBC 2.52 L Hgb 8.0 L 8.6 L Hct 22.6 L 24.1 L MCV 90 MCH 31.7 MCHC 35.4 RDW Std Deviation 48.9 H Plt Count 94 L Neut % (Auto) 79 Lymph % (Auto) 12 [place] % (Auto) 8 Eos % (Auto) 0 Baso % (Auto) 0 Neut # (Auto) 4.1 Lymph # (Auto) 0.6 L [place] # (Auto) 0.4 Eos # (Auto) 0.0 Baso # (Auto) 0.0 Immature Gran # (Auto) 0.02 H Absolute Nucleated RBC 0.00 Immature Gran % 0 Nucleated RBC % 0 Sodium 137 Potassium 3.4 Chloride 107 Carbon Dioxide 20.6 Anion Gap 9 BUN 19 Creatinine 2.2 H Estim Creat Clear Calc 25.9 L eGFR 25 L BUN/Creatinine Ratio 9 L Glucose 107 H Calculated Osmolality 276 Calcium 7.5 L Corrected Calcium 8.1 L Phosphorus 3.6 Magnesium 1.2 L 1.2 L Total Bilirubin 0.2 L AST 15 ALT < 7 L Alkaline Phosphatase 66 Total Protein 4.9 L Albumin 3.2 L Globulin 1.7 L Albumin/Globulin Ratio 1.9 04/28/24 16:30 WBC RBC Hgb Hct MCV MCH MCHC RDW Std Deviation Plt Count Neut % (Auto) Lymph % (Auto) [place] % (Auto) Eos % (Auto) Baso % (Auto) Neut # (Auto) Lymph # (Auto) [place] # (Auto) Eos # (Auto) Baso # (Auto) Immature Gran # (Auto) Absolute Nucleated RBC Immature Gran % Nucleated RBC % Sodium 137 Potassium 3.1 L Chloride 105 Carbon Dioxide 21.0 Anion Gap 11 BUN 20 Creatinine 2.0 H Estim Creat Clear Calc 28.5 L eGFR 28 L BUN/Creatinine Ratio 10 L Glucose 134 H Calculated Osmolality 278 Calcium 7.6 L Corrected Calcium 8.2 L Phosphorus 3.0 Magnesium 2.5 Total Bilirubin AST ALT Alkaline Phosphatase Total Protein Albumin 3.3 L Globulin Albumin/Globulin Ratio Impressions Impression: Failure to thrive dysphagia Status postplacement of a PEG tube Continue current management Assessment & Plan A&P Narrative # Failure to thrive # Nausea vomiting # Dehydration # 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 midnight tonight except p.o. meds Other medical problems include # Essential hypertension # Hypothyroidism Thank you once again for the opportunity to participate in the care of this patient Time Spent With Patient Time: Total time spent is greater than 50% in coordination of care (as documented) at patient's floor/unit and/or counseling patient:
[2024-04-29] VITALS (7 sets, daily range): BP systolic 130–151; BP diastolic 76–82; PULSE 94–105; RESP 17–18; TEMP 36.1–37; O2SAT 93–97; BMI 31.3
[2024-04-29] MEDS: LEVOTHYROXINE SODIUM 125 MCG, LEVOTHYROXINE SODIUM 25 MCG 150 MCG PO (06:08)
[2024-04-29 06:12] LABS: Basophils % (Auto) 0 % (0-2.5); Eosinophils % (Auto) 0 % (0-10); Hematocrit 22.6 % (36.0-46.0); Hemoglobin 8.1 g/dL (12.0-16.0); Immature Granulocytes % (Auto) 0 % (0-0); Immature Granulocytes Auto 0.02 Thou/mm3 (0.00-0.00); Lymphocytes # (Auto) 0.7 Thou/mm3 (1.0-4.8); Lymphocytes % (Auto) 14 % (10-50); Mean Corpuscular HGB Conc 35.8 g/dl (31.0-37.0); Mean Corpuscular Hemoglobin 31.9 pg (25.0-35.0); Mean Corpuscular Volume 89 fL (80-100); Monocytes # (Auto) 0.4 Thou/mm3 (0.0-0.8); Monocytes % (Auto) 7 % (0-12); Neutrophils # (Auto) 3.9 Thou/mm3 (1.8-7.7); Neutrophils % (Auto) 79 % (37-80); Nucleated Red Blood Cell % 0 /100 WBC (0); Platelet Count 107 Thou/mm3 (140-440); RDW Standard Deviation 48.5 fL (36.4-46.3); Red Blood Count 2.54 Miln/mm3 (4.00-5.20)
[2024-04-29] MEDS: HYDROcodone/APAP 5/325 TABLET 1 TAB PO ×2 (06:16→19:10)
[2024-04-29] MEDS: ONDANSETRON INJ 2 MG/ML INJ 2 ML 4 MG IV (06:21)
[2024-04-29 06:49] LABS: Alanine Aminotransferase < 7 U/L (10-49); Albumin, Serum 3.3 gm/dL (3.5-5.0); Albumin/Globulin Ratio 1.7 (1.2-2.2); Alkaline Phosphatase 86 U/L (46-116); Anion Gap 12 (7-16); Aspartate Amino Transferase 10 U/L (0-34); BUN/Creatinine Ratio 11 Ratio (12-20); Bilirubin,Total 0.2 mg/dL (0.3-1.2); Blood Urea Nitrogen 21 mg/dL (9-23); Calcium 7.8 mg/dL (8.3-10.6); Calcium (Corrected) 8.4 mg/dL (8.5-10.1); Carbon Dioxide 22.4 mMol/L (20.0-31.0); Chloride 104 mMol/L (98-107); Estimated Creatinine Clearance 28.5 mL/min (>60); Globulin 1.9 gm/dL (2.3-3.5); Glucose 125 mg/dL (74-106); Magnesium 3.7 mg/dL (1.6-2.6); Osmolality,Calculated 279 (275-295); Potassium 3.8 mMol/L (3.4-5.1); Sodium 138 mMol/L (136-145); Total Protein 5.2 gm/dL (5.7-8.2); eGFR 28 See Note
--- NOTE | 2024-04-29 08:01 | PD.RESPRO ---
Documentation for date of: 04/29/24 Subjective Subjective Interval history: No overnight acute events This morning at the bedside patient stated she feels bloated, denied any other acute complaints at the moment she stated that her nausea has improved. We will try to switch IV antiemetics to p.o. and assess tolerance. Tube feedings at goal of 60 mL at this moment, if patient nausea and vomiting continues to be well-controlled with p.o. meds we will anticipate discharge in the next 24 to 48 hours. Exam Vital Signs Temp Pulse Resp BP Pulse Ox O2 Del Method O2 Flow Rate 97.7 F 98 18 138/82 H 95 Room Air 3 04/29/24 04:00 04/29/24 04:00 04/29/24 04:00 04/29/24 04:00 04/29/24 04:00 04/29/24 04:00 04/27/24 16:00 Narrative Exam General: No acute distress, well appearing, alert, interactive. HEENT: NC/AT, PERRL, EOMI, Good conjugate gaze, moist mucous membranes, oropharynx clear. Neck: Supple, No masses, No adenopathy, carotid pulse 2+ bilaterally without bruits, No JVD, normal range of motion. Chest: Symmetrical, atraumatic, and with equal expansion , Nontender on palpation no deformity and no crepitus. CVS: S1 and S2 present, Regular rate and rhythm, No murmurs, rubs or gallops perceived during auscultation. Lungs: Normal respiratory effort, CTAB, no wheezing, rhonchi or rales perceived during auscultation, No intercostal or subcostal retraction. Abdomen : Soft, PEG tube in place clean, no tenderness to palpation, no guarding ,no rebound, +BS Extremities: No edema, warm well perfused, normal tone and ROM, strength and sensation intact, cap refill less than 2, +2 dp equal bilaterally, able to move all 4 extremities spontaneously. Skin: Intact, no rashes, no lesions, no erythema or jaundice noted Neuro: AOx4, cranial nerves II through XII intact, reflex symmetric and sensation normal, no focal neurologic deficits noted, GCS 15 Psych: Appropriate mood and affect. Objective Labs 04/29/24 04:57 04/29/24 04:57 Labs: Laboratory Results - last 24 hr 04/28/24 04/28/24 04/28/24 12:50 15:10 16:30 WBC RBC Hgb 8.6 L Hct 24.1 L MCV MCH MCHC RDW Std Deviation Plt Count Neut % (Auto) Lymph % (Auto) [place] % (Auto) Eos % (Auto) Baso % (Auto) Neut # (Auto) Lymph # (Auto) [place] # (Auto) Eos # (Auto) Baso # (Auto) Immature Gran # (Auto) Absolute Nucleated RBC Immature Gran % Nucleated RBC % Sodium 137 Potassium 3.1 L Chloride 105 Carbon Dioxide 21.0 Anion Gap 11 BUN 20 Creatinine 2.0 H Estim Creat Clear Calc 28.5 L eGFR 28 L BUN/Creatinine Ratio 10 L Glucose 134 H Calculated Osmolality 278 Calcium 7.6 L Corrected Calcium 8.2 L Phosphorus 3.0 Magnesium 1.2 L 2.5 Total Bilirubin AST ALT Alkaline Phosphatase Total Protein Albumin 3.3 L Globulin Albumin/Globulin Ratio 04/29/24 04:57 WBC 5.0 RBC 2.54 L Hgb 8.1 L Hct 22.6 L MCV 89 MCH 31.9 MCHC 35.8 RDW Std Deviation 48.5 H Plt Count 107 L Neut % (Auto) 79 Lymph % (Auto) 14 [place] % (Auto) 7 Eos % (Auto) 0 Baso % (Auto) 0 Neut # (Auto) 3.9 Lymph # (Auto) 0.7 L [place] # (Auto) 0.4 Eos # (Auto) 0.0 Baso # (Auto) 0.0 Immature Gran # (Auto) 0.02 H Absolute Nucleated RBC 0.00 Immature Gran % 0 Nucleated RBC % 0 Sodium 138 Potassium 3.8 D Chloride 104 Carbon Dioxide 22.4 Anion Gap 12 BUN 21 Creatinine 2.0 H Estim Creat Clear Calc 28.5 L eGFR 28 L BUN/Creatinine Ratio 11 L Glucose 125 H Calculated Osmolality 279 Calcium 7.8 L Corrected Calcium 8.4 L Phosphorus 3.0 Magnesium 3.7 H Total Bilirubin 0.2 L AST 10 ALT < 7 L Alkaline Phosphatase 86 D Total Protein 5.2 L Albumin 3.3 L Globulin 1.9 L Albumin/Globulin Ratio 1.7 Quality Measures Quality Measures VTE prophylaxis Assessment & Plan Assessment Current Active Medications: Generic Name Dose Route Start Last Admin Trade Name Freq PRN Reason Stop Dose Admin Acetaminophen 650 mg 04/24/24 11:31 Acetaminophen 325 Mg Tablet PO 05/23/24 17:42 Q6H PRN Fever >100.4 or pain (1-3) Hydrocodone Bitart/Acetaminophen 1 tab 04/26/24 23:23 04/29/24 06:16 Hydrocodone/Apap 5/325 Tablet PO 05/01/24 17:42 1 tab Q4HR PRN Administration Pain Scale 4-7(Mod-Sev Amlodipine Besylate 10 mg 04/24/24 16:15 04/28/24 10:03 Amlodipine Besylate 5 Mg Tablet PO 05/24/24 16:14 10 mg QDAY SARA Administration Atorvastatin Calcium 10 mg 04/25/24 21:00 04/28/24 20:51 Atorvastatin Calcium 10 Mg Tablet PO 05/25/24 20:59 10 mg HS SARA Administration Lidocaine HCl 10 ml/ 0 ml 04/23/24 18:21 Diphenhydramine HCl 25 mg/ Al PO 04/30/24 18:12 Hydrox/Mg Hydrox/Simethicone Q8HR PRN 30 ml/ Nystatin 10 ml Dry Mouth Heparin Sodium (Porcine) 5,000 unit 04/23/24 21:00 04/28/24 20:51 Heparin Sod Inj 5000 Unit/Ml Vial SC 05/07/24 20:59 5,000 unit BID SARA Administration Hydromorphone HCl 0.5 mg 04/26/24 21:26 04/28/24 17:05 Hydromorphone Inj 2 Mg/Ml Vial IVP 05/01/24 21:25 0.5 mg Q4HR PRN Administration breakthrough pain or pain 8-10 Levothyroxine Sodium 125 mcg/ 150 mcg 04/24/24 06:00 04/29/24 06:08 Levothyroxine Sodium 25 mcg PO 05/24/24 05:59 150 mcg ACBR SARA Administration Metoclopramide HCl 10 mg 04/28/24 10:11 04/28/24 17:02 Metoclopramide Inj 5 Mg/Ml Vial 2 Ml IVP 05/28/24 10:10 10 mg Q6HR PRN Administration NAUSEA OR VOMITING Protocol Ondansetron HCl 4 mg 04/23/24 17:43 04/29/24 06:21 Ondansetron Inj 2 Mg/Ml Inj 2 Ml IV 05/23/24 17:42 4 mg Q6H PRN Administration NAUSEA OR VOMITING Protocol Plan 58 y/o F with PMHx significant for hypertension, hypothyroidism, tonsillar cancer receiving active treatment with radiation and chemotherapy with Dr. Mejia presents to ED from home with chief complaint of nausea vomiting with poor p.o. intake x 4 days, admitted for prerenal MARTIN secondary to dehydration. #Acute renal failure secondary to dehydration improving #Intractable nausea/vomiting Patient presented with chief complaint of nausea and vomiting with poor p.o. intake x 4 days. On admission patient had MARTIN: BUN 38, creatinine 2.2, EGFR 16. Likely secondary to radiation/chemotherapy treatment for tonsillar cancer. Urinalysis shows potential UTI, likely contaminated, culture pending. Patient received 1 L bolus normal saline in the ED. Patient continues to have no p.o. intake with intractable nausea and vomiting. Requesting PEG tube placement for nutritional support. GI consulted. Urine culture negative. Renal ultrasound showed small right kidney with cortical thinning and bilateral renal parenchymal scar formation. Patient had PEG tube placed for nutritional support. Procedure tolerated well. Dietary consulted for G-tube feeds and patient education. Tube feedings at goal 60 mL -Follow-up CBC and CMP daily -Renally dose medications -Avoid nephrotoxins -Zofran 4 mg p.o. every 6 hours and Reglan 10 mg p.o. every 6 hours #Refeeding syndrome Patient had poor/no p.o. intake for at least a week. Patient has just resumed tube feeds, concern for refeeding syndrome due to new food. Patient showed several electrolyte abnormalities, low magnesium and calcium, repleted -Monitor electrolytes daily -Replete electrolytes as needed #Tonsillar cancer, active treatments radiation/chemotherapy Patient is receiving treatment radiation/chemotherapy with Dr. Mejia for tonsillar cancer. Patient reports fatigue for past 9 months since treatments began. Patient also reports she has had increased difficulty eating her usual food, in addition to poor appetite she has had some difficulty swallowing and prefers softer foods. Patient does express intermittent pain with dry mouth. Patient continues to have severe nausea, intractable. Requesting PEG tube placement. Speech therapy eval recommended dysphagia level 2 diet. Oncology is following up the case PEG tube placed, see above. -Magic mouthwash daily as needed for dry mouth/pain -Follow-up CMP #Suspected depression Patient expressed feelings of anxiety and hopelessness since diagnosis, along with decreased interest in activities. Has not been formally evaluated for this. -Consider PHQ-9 -Follow-up outpatient #Hypertension On home lisinopril -Holding home lisinopril due to MARTIN -Continue amlodipine 10mg #Hypothyroidism Patient history as stated. Takes levothyroxine at home. -Continue levothyroxine 150 mcg p.o. daily DVT prophylaxis: Heparin GI prophylaxis: None Diet: Tube feeds Lines: Peripheral IV Code status: Full code Patient discussed with my attending Dr Curt Hernández MD PGY-3 Disclaimer: Despite multiple revisions, due to the dictation software being used, the document bellow may not be free of grammatical errors including phonetic/typographic errors. However, this does not deter from our commitment to providing health care in the patient's best interest in mind. Attending Provider Attestation/Addendum I attest that I was physically present for the evaluation, physical examination, lab and imaging review of the patient with the residents. I discussed the case with the residents and agree with the findings and plans of care as documented above. At bedside, patient appears more comfortable compared to yesterday.? Hemoglobin continues to be stable at 8.1.? She has been started on tube feeding, currently at goal.? Stated that both Zofran and Reglan were able to control her nausea/vomiting.? We will switch her IV antiemetics to p.o. antiemetics and see if she can tolerate.? Her MARTIN has improving slowly.? If patient is able to tolerate tube feeding with p.o. antiemetic and her MARTIN continues to improve, we will plan for discharge tomorrow. Janeth Elias MD
[2024-04-29] MEDS: HEPARIN SOD INJ 5000 UNIT/ML VIAL SC ×2 (08:54→21:02)
[2024-04-29] MEDS: amLODIPine BESYLATE 5 MG TABLET 10 MG PO (08:54)
--- NOTE | 2024-04-29 14:58 | PC.SS ---
rounding note: Patient is pending goal feeds and will d/c Sat. She needs to be set up with home health service.
--- NOTE | 2024-04-29 16:52 | PD.IMPROG ---
Documentation for date of: 04/29/24 Subjective Subjective Interval history: PEG tube is working very well Exam Vital Signs Temp Pulse Resp BP Pulse Ox O2 Del Method O2 Flow Rate 97.4 F 101 H 18 130/78 96 Room Air 3 04/29/24 15:40 04/29/24 15:40 04/29/24 15:40 04/29/24 15:40 04/29/24 15:40 04/29/24 15:40 04/27/24 16:00 Objective Labs 04/29/24 04:57 04/29/24 04:57 Labs: Laboratory Results - last 24 hr 04/28/24 04/29/24 16:30 04:57 WBC 5.0 RBC 2.54 L Hgb 8.1 L Hct 22.6 L MCV 89 MCH 31.9 MCHC 35.8 RDW Std Deviation 48.5 H Plt Count 107 L Neut % (Auto) 79 Lymph % (Auto) 14 [place] % (Auto) 7 Eos % (Auto) 0 Baso % (Auto) 0 Neut # (Auto) 3.9 Lymph # (Auto) 0.7 L [place] # (Auto) 0.4 Eos # (Auto) 0.0 Baso # (Auto) 0.0 Immature Gran # (Auto) 0.02 H Absolute Nucleated RBC 0.00 Immature Gran % 0 Nucleated RBC % 0 Sodium 137 138 Potassium 3.1 L 3.8 D Chloride 105 104 Carbon Dioxide 21.0 22.4 Anion Gap 11 12 BUN 20 21 Creatinine 2.0 H 2.0 H Estim Creat Clear Calc 28.5 L 28.5 L eGFR 28 L 28 L BUN/Creatinine Ratio 10 L 11 L Glucose 134 H 125 H Calculated Osmolality 278 279 Calcium 7.6 L 7.8 L Corrected Calcium 8.2 L 8.4 L Phosphorus 3.0 3.0 Magnesium 2.5 3.7 H Total Bilirubin 0.2 L AST 10 ALT < 7 L Alkaline Phosphatase 86 D Total Protein 5.2 L Albumin 3.3 L 3.3 L Globulin 1.9 L Albumin/Globulin Ratio 1.7 Impressions Impression: Failure to thrive Status post PEG placement Continue current management Assessment & Plan A&P Narrative # Failure to thrive # Nausea vomiting # Dehydration # 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 midnight tonight except p.o. meds Other medical problems include # Essential hypertension # Hypothyroidism Thank you once again for the opportunity to participate in the care of this patient Time Spent With Patient Time: Total time spent is greater than 50% in coordination of care (as documented) at patient's floor/unit and/or counseling patient:
[2024-04-29] MEDS: ONDANSETRON ODT 4 MG TABRAP PO (19:10)
[2024-04-29] MEDS: ATORVASTATIN CALCIUM 10 MG TABLET PO (21:02)
[2024-04-29] MEDS: LACTULOSE SYRUP 20 GM/30 ML UDC 30 GM PO (21:48)
[2024-04-29] MEDS: SENNA TABLET 1 TAB PO (21:48)
[2024-04-30] VITALS (7 sets, daily range): BP systolic 119–151; BP diastolic 80–90; PULSE 95–109; RESP 16–18; TEMP 36.1–36.8; O2SAT 94–98
[2024-04-30] MEDS: LEVOTHYROXINE SODIUM 125 MCG, LEVOTHYROXINE SODIUM 25 MCG 150 MCG PO (05:28)
[2024-04-30 06:09] LABS: Basophils % (Auto) 0 % (0-2.5); Eosinophils % (Auto) 1 % (0-10); Immature Granulocytes % (Auto) 0 % (0-0); Immature Granulocytes Auto 0.01 Thou/mm3 (0.00-0.00); Lymphocytes # (Auto) 0.9 Thou/mm3 (1.0-4.8); Lymphocytes % (Auto) 20 % (10-50); Mean Corpuscular HGB Conc 35.2 g/dl (31.0-37.0); Mean Corpuscular Hemoglobin 31.8 pg (25.0-35.0); Mean Corpuscular Volume 90 fL (80-100); Monocytes # (Auto) 0.3 Thou/mm3 (0.0-0.8); Monocytes % (Auto) 8 % (0-12); Neutrophils # (Auto) 3.1 Thou/mm3 (1.8-7.7); Neutrophils % (Auto) 71 % (37-80); Nucleated Red Blood Cell % 0 /100 WBC (0); RDW Standard Deviation 50.4 fL (36.4-46.3); Red Blood Count 2.55 Miln/mm3 (4.00-5.20); White Blood Count 4.3 Thou/mm3 (3.6-11.0)
[2024-04-30 06:14] LABS: Hemoglobin 8.1 g/dL (12.0-16.0); Platelet Count 66 Thou/mm3 (140-440)
[2024-04-30 06:18] LABS: Slide Review Platelets confirmed
[2024-04-30 06:57] LABS: Alanine Aminotransferase < 7 U/L (10-49); Albumin, Serum 3.4 gm/dL (3.5-5.0); Albumin/Globulin Ratio 1.8 (1.2-2.2); Alkaline Phosphatase 80 U/L (46-116); Anion Gap 12 (7-16); Aspartate Amino Transferase 16 U/L (0-34); BUN/Creatinine Ratio 12 Ratio (12-20); Bilirubin,Total 0.2 mg/dL (0.3-1.2); Blood Urea Nitrogen 24 mg/dL (9-23); Calcium 8.2 mg/dL (8.3-10.6); Calcium (Corrected) 8.7 mg/dL (8.5-10.1); Carbon Dioxide 23.4 mMol/L (20.0-31.0); Chloride 101 mMol/L (98-107); Estimated Creatinine Clearance 28.5 mL/min (>60); Globulin 1.9 gm/dL (2.3-3.5); Glucose 105 mg/dL (74-106); Magnesium 2.3 mg/dL (1.6-2.6); Osmolality,Calculated 275 (275-295); Potassium 3.7 mMol/L (3.4-5.1); Sodium 136 mMol/L (136-145); Total Protein 5.3 gm/dL (5.7-8.2); eGFR 28 See Note
--- NOTE | 2024-04-30 07:09 | PD.RESPRO ---
Documentation for date of: 04/30/24 Exam Vital Signs Temp Pulse Resp BP Pulse Ox O2 Del Method O2 Flow Rate 96.9 F 102 H 17 147/81 H 97 Room Air 3 04/30/24 04:00 04/30/24 04:00 04/30/24 04:00 04/30/24 04:00 04/30/24 04:00 04/30/24 04:00 04/27/24 16:00 Objective Labs 04/30/24 05:37 04/30/24 05:37 Labs: Laboratory Results - last 24 hr 04/30/24 05:37 WBC 4.3 RBC 2.55 L Hgb 8.1 L Hct 23.0 L MCV 90 MCH 31.8 MCHC 35.2 RDW Std Deviation 50.4 H Plt Count 66 L D Neut % (Auto) 71 Lymph % (Auto) 20 [place] % (Auto) 8 Eos % (Auto) 1 Baso % (Auto) 0 Neut # (Auto) 3.1 Lymph # (Auto) 0.9 L [place] # (Auto) 0.3 Eos # (Auto) 0.0 Baso # (Auto) 0.0 Immature Gran # (Auto) 0.01 H Absolute Nucleated RBC 0.00 Immature Gran % 0 Nucleated RBC % 0 Sodium 136 Potassium 3.7 Chloride 101 Carbon Dioxide 23.4 Anion Gap 12 BUN 24 H Creatinine 2.0 H Estim Creat Clear Calc 28.5 L eGFR 28 L BUN/Creatinine Ratio 12 Glucose 105 Calculated Osmolality 275 Calcium 8.2 L Corrected Calcium 8.7 Magnesium 2.3 Total Bilirubin 0.2 L AST 16 ALT < 7 L Alkaline Phosphatase 80 Total Protein 5.3 L Albumin 3.4 L Globulin 1.9 L Albumin/Globulin Ratio 1.8 Misc Test Result Platelets confirmed Quality Measures Quality Measures VTE prophylaxis Assessment & Plan Assessment Current Active Medications: Generic Name Dose Route Start Last Admin Trade Name Freq PRN Reason Stop Dose Admin Acetaminophen 650 mg 04/24/24 11:31 Acetaminophen 325 Mg Tablet PO 05/23/24 17:42 Q6H PRN Fever >100.4 or pain (1-3) Hydrocodone Bitart/Acetaminophen 1 tab 04/26/24 23:23 04/29/24 19:10 Hydrocodone/Apap 5/325 Tablet PO 05/01/24 17:42 1 tab Q4HR PRN Administration Pain Scale 4-7(Mod-Sev Amlodipine Besylate 10 mg 04/24/24 16:15 04/29/24 08:54 Amlodipine Besylate 5 Mg Tablet PO 05/24/24 16:14 10 mg QDAY SARA Administration Atorvastatin Calcium 10 mg 04/25/24 21:00 04/29/24 21:02 Atorvastatin Calcium 10 Mg Tablet PO 05/25/24 20:59 10 mg HS SARA Administration Lidocaine HCl 10 ml/ 0 ml 04/23/24 18:21 Diphenhydramine HCl 25 mg/ Al PO 04/30/24 18:12 Hydrox/Mg Hydrox/Simethicone Q8HR PRN 30 ml/ Nystatin 10 ml Dry Mouth Heparin Sodium (Porcine) 5,000 unit 04/23/24 21:00 04/29/24 21:02 Heparin Sod Inj 5000 Unit/Ml Vial SC 05/07/24 20:59 5,000 unit BID SARA Administration Hydromorphone HCl 0.5 mg 04/26/24 21:26 04/28/24 17:05 Hydromorphone Inj 2 Mg/Ml Vial IVP 05/01/24 21:25 0.5 mg Q4HR PRN Administration breakthrough pain or pain 8-10 Levothyroxine Sodium 125 mcg/ 150 mcg 04/24/24 06:00 04/30/24 05:28 Levothyroxine Sodium 25 mcg PO 05/24/24 05:59 150 mcg ACBR SARA Administration Metoclopramide HCl 10 mg 04/29/24 09:43 Metoclopramide 5 Mg Tablet PO 05/28/24 10:10 Q6HR PRN NAUSEA OR VOMITING Protocol Ondansetron HCl 4 mg 04/29/24 09:44 04/29/24 19:10 Ondansetron Odt 4 Mg Tabrap PO 05/29/24 09:43 4 mg Q6HR PRN Administration NAUSEA OR VOMITING Protocol Sennosides 1 tab 04/29/24 21:19 Senna Tablet PO 05/29/24 21:18 QDAY PRN CONSTIPATION Protocol
[2024-04-30] MEDS: HYDROcodone/APAP 5/325 TABLET 1 TAB PO ×3 (07:52→17:52)
[2024-04-30] MEDS: ONDANSETRON ODT 4 MG TABRAP PO (07:52)
[2024-04-30] MEDS: amLODIPine BESYLATE 5 MG TABLET 10 MG PO (09:26)
[2024-04-30] MEDS: HEPARIN SOD INJ 5000 UNIT/ML VIAL SC (09:27)
--- NOTE | 2024-04-30 09:55 | PD.RESDS ---
Planned Discharge Date 04/30/24 DS: Providers Provider Date of admission: 04/23/24 17:43 Primary care physician: Brynn Barber PA-C Admitting Provider: Mita Herman DO Attending Provider on Admission: Janeth Elias MD Consults: 04/23/24 17:46 Referral Speech Therapy Routine Comment: 04/24/24 14:25 Consult to Oncology Routine Comment: Consulting Provider: Solomon Mejia 04/25/24 10:18 Consult to Gastroenterology Routine Comment: peg tube placement Consulting Provider: Bro Morgan 04/26/24 20:03 Referral Registered Dietitian Stat Comment: for feeding and rate, also patient education Attending Provider on DC: Ella Hernández MD Discharging Provider: Ella Hernández MD Hospital Course Hospital Course Hospital course: PEG tube is working very well Time Spent with Patient Time attestation: Total time spent providing and/or coordinating discharge services: Exam Vital Signs Temp Pulse Resp BP Pulse Ox O2 Del Method O2 Flow Rate 97.8 F 95 16 131/81 H 95 Room Air 3 04/30/24 08:00 04/30/24 09:26 04/30/24 08:00 04/30/24 09:26 04/30/24 08:00 04/30/24 08:00 04/27/24 16:00 Discharge Plan Plan Patient Disposition: HOME (Self Care) Patient condition on transfer: Stable Care Plan Goals: All questions were answered recommendation were given to come at the ED at any time if she is not feeling well Follow-up with PCP 5 to 7 days after discharge follow-up with CBC and CMP by PCP in 1 week and if kidney function does not improve will recommend follow-up and referral with nephrology Follow-up with oncology 1 week after discharge Continue home medications Started amlodipine 10 mg p.o. daily Ondansetron 4 mg p.o. every 6 hours as needed for nausea and vomiting Reglan 5 mg p.o. every 8 hours as needed for nausea and vomiting Do not take ondansetron and Reglan on the same day [place] 5/325 tablet p.o. every 6 hours as needed for pain Discontinue lisinopril Prescriptions/Referrals Prescriptions/Med Rec: New ondansetron 4 mg tablet,disintegrating 4 mg PO Q8H PRN (Reason: nausea and vomiting) 30 Days Qty: 60 0RF sennosides [senna] 8.6 mg Tablet 8.6 mg PO QDAY PRN (Reason: Constipation) 30 Days Qty: 30 0RF hydrocodone-acetaminophen 5-325 mg Tablet 1 tab PO Q6H MDD 4 tablets PRN (Reason: Pain Scale 4-7(Mod-Sev) 5 Days Qty: 20 0RF amlodipine 5 mg Tablet 10 mg PO QDAY 30 Days Qty: 60 0RF metoclopramide HCl 5 mg tablet 5 mg PO Q8HR PRN (Reason: nausea and vomiting) 30 Days Qty: 30 0RF Continued atorvastatin 10 mg Tablet 10 mg PO QDAY levothyroxine 150 mcg Tablet 150 mcg PO QDAY trazodone 100 mg tablet 100 mg PO DAILY PRN (Reason: insomnia) Patient Comments: TAKE 1 TABLET BY MOUTH EVERY DAY AT BEDTIME Held potassium chloride 20 mEq tablet extended release 20 meq PO DAILY Hold Instructions: until follow up with pcp Patient Comments: TAKE 1 TABLET BY MOUTH EVERY DAY Discontinued magnesium oxide 420 mg Tablet 420 mg PO BID lisinopril 30 mg Tablet 30 mg PO QDAY Referrals: Brynn Barber PA-C [Primary Care Provider] - Patient/Caregiver Discharge Instructions Meds to Beds: No Discharge Activity: activity as tolerated Other Discharge Diet Instructions: Bolus tube feeding recommendations for home: Jevity 1.5 via PEG tube by bolus syringe: 8 oz (1 container) 6x/day?Or 16 oz (2 containers) 3x/day. Flush with 30 ml water before and after feeds. Water flushes of 150 ml every 4 hours (or per MD). Provides: 2130 kcal, 91 g prot, 1080 ml free water, 1422 ml total volume. Print Language: [place] Stand Alone Forms: [facility] Award Info., Patient Portal Info Letter Discharge Order Discharge Orders: Discharge (Routine); Ordered 04/30/24 Ordered By: Ella Hernández
--- NOTE | 2024-04-30 10:08 | PC.NURSE ---
Discharge orders in, pending home health
--- NOTE | 2024-04-30 10:58 | PC.CM ---
Addendum entered by Ayesha Hill RN 04/30/24 17:14: Patient has been accepted by [facility] home health and [facility] services. I spoke to Dr. Elias and to nurse and gave them the update. Patient will discharge tomorrow so [facility] can open them to their service. Original Note: Pt did not have home health preferences, referral sent to all agencies.
--- NOTE | 2024-04-30 12:39 | PD.RESPRO ---
Documentation for date of: 04/30/24 Subjective Subjective Interval history: No overnight acute events This morning at bedside patient stated feeling well denied any acute complaints at this moment, she stated that she is tolerating p.o. medications for nausea and vomiting, she stated that she has a bowel movement as well, denied any nausea, headache abdominal pain or any other associated symptoms at this moment. Pending home health supplies delivery for tube feedings at home, case management is following up the case. Exam Vital Signs Temp Pulse Resp BP Pulse Ox O2 Del Method O2 Flow Rate 97 F 100 18 129/80 97 Room Air 3 04/30/24 12:04/30/24 12:00 04/30/24 12:00 04/30/24 12:00 04/30/24 12:04/30/24 12:04/27/24 16:00 Narrative Exam General: No acute distress, well appearing, alert, interactive. HEENT: NC/AT, PERRL, EOMI, Good conjugate gaze, moist mucous membranes, oropharynx clear. Neck: Supple, No masses, No adenopathy, carotid pulse 2+ bilaterally without bruits, No JVD, normal range of motion. Chest: Symmetrical, atraumatic, and with equal expansion , Nontender on palpation no deformity and no crepitus. CVS: S1 and S2 present, Regular rate and rhythm, No murmurs, rubs or gallops perceived during auscultation. Lungs: Normal respiratory effort, CTAB, no wheezing, rhonchi or rales perceived during auscultation, No intercostal or subcostal retraction. Abdomen : Soft, PEG tube in place clean, no tenderness to palpation, no guarding ,no rebound, +BS Extremities: No edema, warm well perfused, normal tone and ROM, strength and sensation intact, cap refill less than 2, +2 dp equal bilaterally, able to move all 4 extremities spontaneously. Skin: Intact, no rashes, no lesions, no erythema or jaundice noted Neuro: AOx4, cranial nerves II through XII intact, reflex symmetric and sensation normal, no focal neurologic deficits noted, GCS 15 Psych: Appropriate mood and affect. Objective Labs 04/30/24 05:37 04/30/24 05:37 Labs: Laboratory Results - last 24 hr 04/30/24 05:37 WBC 4.3 RBC 2.55 L Hgb 8.1 L Hct 23.0 L MCV 90 MCH 31.8 MCHC 35.2 RDW Std Deviation 50.4 H Plt Count 66 L D Neut % (Auto) 71 Lymph % (Auto) 20 [place] % (Auto) 8 Eos % (Auto) 1 Baso % (Auto) 0 Neut # (Auto) 3.1 Lymph # (Auto) 0.9 L [place] # (Auto) 0.3 Eos # (Auto) 0.0 Baso # (Auto) 0.0 Immature Gran # (Auto) 0.01 H Absolute Nucleated RBC 0.00 Immature Gran % 0 Nucleated RBC % 0 Sodium 136 Potassium 3.7 Chloride 101 Carbon Dioxide 23.4 Anion Gap 12 BUN 24 H Creatinine 2.0 H Estim Creat Clear Calc 28.5 L eGFR 28 L BUN/Creatinine Ratio 12 Glucose 105 Calculated Osmolality 275 Calcium 8.2 L Corrected Calcium 8.7 Magnesium 2.3 Total Bilirubin 0.2 L AST 16 ALT < 7 L Alkaline Phosphatase 80 Total Protein 5.3 L Albumin 3.4 L Globulin 1.9 L Albumin/Globulin Ratio 1.8 Misc Test Result Platelets confirmed Quality Measures Quality Measures VTE prophylaxis Assessment & Plan Assessment Current Active Medications: Generic Name Dose Route Start Last Admin Trade Name Freq PRN Reason Stop Dose Admin Acetaminophen 650 mg 04/24/24 11:31 Acetaminophen 325 Mg Tablet PO 05/23/24 17:42 Q6H PRN Fever >100.4 or pain (1-3) Hydrocodone Bitart/Acetaminophen 1 tab 04/26/24 23:23 04/30/24 07:52 Hydrocodone/Apap 5/325 Tablet PO 05/01/24 17:42 1 tab Q4HR PRN Administration Pain Scale 4-7(Mod-Sev Amlodipine Besylate 10 mg 04/24/24 16:15 04/30/24 09:26 Amlodipine Besylate 5 Mg Tablet PO 05/24/24 16:14 10 mg QDAY SARA Administration Atorvastatin Calcium 10 mg 04/25/24 21:00 04/29/24 21:02 Atorvastatin Calcium 10 Mg Tablet PO 05/25/24 20:59 10 mg HS SARA Administration Lidocaine HCl 10 ml/ 0 ml 04/23/24 18:21 Diphenhydramine HCl 25 mg/ Al PO 04/30/24 18:12 Hydrox/Mg Hydrox/Simethicone Q8HR PRN 30 ml/ Nystatin 10 ml Dry Mouth Heparin Sodium (Porcine) 5,000 unit 04/23/24 21:00 04/30/24 09:27 Heparin Sod Inj 5000 Unit/Ml Vial SC 05/07/24 20:59 5,000 unit BID SARA Administration Hydromorphone HCl 0.5 mg 04/26/24 21:26 04/28/24 17:05 Hydromorphone Inj 2 Mg/Ml Vial IVP 05/01/24 21:25 0.5 mg Q4HR PRN Administration breakthrough pain or pain 8-10 Levothyroxine Sodium 125 mcg/ 150 mcg 04/24/24 06:00 04/30/24 05:28 Levothyroxine Sodium 25 mcg PO 05/24/24 05:59 150 mcg ACBR SARA Administration Metoclopramide HCl 5 mg 04/30/24 09:38 Metoclopramide 5 Mg Tablet PO 05/30/24 09:37 Q6HR PRN NAUSEA OR VOMITING Protocol Ondansetron HCl 4 mg 04/29/24 09:44 04/30/24 07:52 Ondansetron Odt 4 Mg Tabrap PO 05/29/24 09:43 4 mg Q6HR PRN Administration NAUSEA OR VOMITING Protocol Sennosides 1 tab 04/29/24 21:19 Senna Tablet PO 05/29/24 21:18 QDAY PRN CONSTIPATION Protocol Plan 58 y/o F with PMHx significant for hypertension, hypothyroidism, tonsillar cancer receiving active treatment with radiation and chemotherapy with Dr. Mejia presents to ED from home with chief complaint of nausea vomiting with poor p.o. intake x 4 days, admitted for prerenal MARTIN secondary to dehydration. #Acute renal failure secondary to dehydration improving #Intractable nausea/vomiting Patient presented with chief complaint of nausea and vomiting with poor p.o. intake x 4 days. On admission patient had MARTIN: BUN 38, creatinine 2.2, EGFR 16. Likely secondary to radiation/chemotherapy treatment for tonsillar cancer. Urinalysis shows potential UTI, likely contaminated, culture pending. Patient received 1 L bolus normal saline in the ED. Patient continues to have no p.o. intake with intractable nausea and vomiting. Requesting PEG tube placement for nutritional support. GI consulted. Urine culture negative. Renal ultrasound showed small right kidney with cortical thinning and bilateral renal parenchymal scar formation. Patient had PEG tube placed for nutritional support. Procedure tolerated well. Dietary consulted for G-tube feeds and patient education. Tube feedings at goal 60 mL -Follow-up CBC and CMP daily -Renally dose medications -Avoid nephrotoxins - Continue Zofran 4 mg p.o. every 6 hours and Reglan 10 mg p.o. every 6 hours #Refeeding syndrome Patient had poor/no p.o. intake for at least a week. Patient has just resumed tube feeds, concern for refeeding syndrome due to new food. Patient showed several electrolyte abnormalities, low magnesium and calcium, repleted -Monitor electrolytes daily -Replete electrolytes as needed #Tonsillar cancer, active treatments radiation/chemotherapy Patient is receiving treatment radiation/chemotherapy with Dr. Mejia for tonsillar cancer. Patient reports fatigue for past 9 months since treatments began. Patient also reports she has had increased difficulty eating her usual food, in addition to poor appetite she has had some difficulty swallowing and prefers softer foods. Patient does express intermittent pain with dry mouth. Patient continues to have severe nausea, intractable. Requesting PEG tube placement. Speech therapy eval recommended dysphagia level 2 diet. Oncology is following up the case PEG tube placed, see above. -Magic mouthwash daily as needed for dry mouth/pain -Follow-up CMP #Suspected depression Patient expressed feelings of anxiety and hopelessness since diagnosis, along with decreased interest in activities. Has not been formally evaluated for this. -Consider PHQ-9 -Follow-up outpatient #Hypertension On home lisinopril -Holding home lisinopril due to MARTIN -Continue amlodipine 10mg #Hypothyroidism Patient history as stated. Takes levothyroxine at home. -Continue levothyroxine 150 mcg p.o. daily Disposition: [facility] pending home health supplies for tube feedings at home. DVT prophylaxis: Heparin GI prophylaxis: None Diet: Tube feeds Lines: Peripheral IV Code status: Full code Patient discussed with my attending Dr Curt Hernández MD PGY-3 Disclaimer: Despite multiple revisions, due to the dictation software being used, the document bellow may not be free of grammatical errors including phonetic/typographic errors. However, this does not deter from our commitment to providing health care in the patient's best interest in mind. Attending Provider Attestation/Addendum I attest that I was physically present for the evaluation, physical examination, lab and imaging review of the patient with the residents. I discussed the case with the residents and agree with the findings and plans of care as documented above. At bedside today, patient states she is feeling well and does not have any complaints. Continues to be on goal feeding without nausea or vomiting. Her nausea and vomiting has been well-controlled with oral antiemetics. Patient was planned for discharge but is waiting on home health set up for tube feeding. We will continue to monitor her electrolytes, symptoms for nausea and vomiting. Janeth Elias MD
[2024-04-30] MEDS: METOCLOPRAMIDE 5 MG TABLET PO (13:19)
--- NOTE | 2024-04-30 19:35 | PC.NURSE ---
Dr. Ibanez notified regarding low platelets and its decrease since admission. He stated to hold the 2100 heparin.
--- NOTE | 2024-04-30 19:53 | PD.IMPROG ---
Documentation for date of: 04/30/24 Subjective Subjective Interval history: No drainage at the PEG site Doing well Exam Vital Signs Temp Pulse Resp BP Pulse Ox O2 Del Method O2 Flow Rate 98.3 F 109 H 17 119/90 H 97 Room Air 3 04/30/24 16:00 04/30/24 16:00 04/30/24 16:00 04/30/24 16:00 04/30/24 16:00 04/30/24 16:00 04/27/24 16:00 Objective Labs 04/30/24 05:37 04/30/24 05:37 Labs: Laboratory Results - last 24 hr 04/30/24 05:37 WBC 4.3 RBC 2.55 L Hgb 8.1 L Hct 23.0 L MCV 90 MCH 31.8 MCHC 35.2 RDW Std Deviation 50.4 H Plt Count 66 L D Neut % (Auto) 71 Lymph % (Auto) 20 [place] % (Auto) 8 Eos % (Auto) 1 Baso % (Auto) 0 Neut # (Auto) 3.1 Lymph # (Auto) 0.[address] [place] # (Auto) 0.3 Eos # (Auto) 0.0 Baso # (Auto) 0.0 Immature Gran # (Auto) 0.01 H Absolute Nucleated RBC 0.00 Immature Gran % 0 Nucleated RBC % 0 Sodium 136 Potassium 3.7 Chloride 101 Carbon Dioxide 23.4 Anion Gap 12 BUN 24 H Creatinine 2.0 H Estim Creat Clear Calc 28.5 L eGFR 28 L BUN/Creatinine Ratio 12 Glucose 105 Calculated Osmolality 275 Calcium 8.2 L Corrected Calcium 8.7 Magnesium 2.3 Total Bilirubin 0.2 L AST 16 ALT < 7 L Alkaline Phosphatase 80 Total Protein 5.3 L Albumin 3.4 L Globulin 1.9 L Albumin/Globulin Ratio 1.8 Misc Test Result Platelets confirmed Impressions Impression: Failure to thrive PEG placement Continue enteral hyperalimentation Assessment & Plan A&P Narrative # Failure to thrive # Nausea vomiting # Dehydration # 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 midnight tonight except p.o. meds Other medical problems include # Essential hypertension # Hypothyroidism Thank you once again for the opportunity to participate in the care of this patient Time Spent With Patient Time: Total time spent is greater than 50% in coordination of care (as documented) at patient's floor/unit and/or counseling patient:
[2024-04-30] MEDS: ATORVASTATIN CALCIUM 10 MG TABLET PO (20:57)
[2024-04-30] MEDS: SENNA TABLET 1 TAB PO (20:57)
[2024-05-01] VITALS: BP 135/78; PULSE 104; RESP 18; TEMP 36.3; O2SAT 95
[2024-05-01 04:00] VITALS: BP 123/74; PULSE 100; RESP 20; TEMP 36.7; O2SAT 93
[2024-05-01] MEDS: LEVOTHYROXINE SODIUM 125 MCG, LEVOTHYROXINE SODIUM 25 MCG 150 MCG PO (05:05)
[2024-05-01] MEDS: HYDROcodone/APAP 5/325 TABLET 1 TAB PO (05:08)
[2024-05-01 05:44] LABS: Basophils % (Auto) 1 % (0-2.5); Eosinophils % (Auto) 1 % (0-10); Hematocrit 22.1 % (36.0-46.0); Immature Granulocytes % (Auto) 1 % (0-0); Immature Granulocytes Auto 0.02 Thou/mm3 (0.00-0.00); Lymphocytes # (Auto) 0.9 Thou/mm3 (1.0-4.8); Lymphocytes % (Auto) 20 % (10-50); Mean Corpuscular HGB Conc 35.7 g/dl (31.0-37.0); Mean Corpuscular Hemoglobin 31.9 pg (25.0-35.0); Mean Corpuscular Volume 89 fL (80-100); Monocytes # (Auto) 0.4 Thou/mm3 (0.0-0.8); Monocytes % (Auto) 8 % (0-12); Neutrophils # (Auto) 3.1 Thou/mm3 (1.8-7.7); Neutrophils % (Auto) 70 % (37-80); Nucleated Red Blood Cell % 0 /100 WBC (0); Platelet Count 105 Thou/mm3 (140-440); RDW Standard Deviation 47.8 fL (36.4-46.3); Red Blood Count 2.48 Miln/mm3 (4.00-5.20); White Blood Count 4.4 Thou/mm3 (3.6-11.0)
[2024-05-01 05:45] LABS: Hemoglobin 7.9 g/dL (12.0-16.0)
[2024-05-01 06:16] LABS: Alanine Aminotransferase < 7 U/L (10-49); Albumin, Serum 3.4 gm/dL (3.5-5.0); Albumin/Globulin Ratio 1.7 (1.2-2.2); Alkaline Phosphatase 79 U/L (46-116); Anion Gap 9 (7-16); Aspartate Amino Transferase < 8 U/L (0-34); BUN/Creatinine Ratio 14 Ratio (12-20); Bilirubin,Total 0.2 mg/dL (0.3-1.2); Blood Urea Nitrogen 26 mg/dL (9-23); Calcium 8.7 mg/dL (8.3-10.6); Calcium (Corrected) 9.2 mg/dL (8.5-10.1); Carbon Dioxide 25.7 mMol/L (20.0-31.0); Chloride 99 mMol/L (98-107); Creatinine (Component) 1.9 mg/dL (0.6-1.3); Glucose 106 mg/dL (74-106); Magnesium 1.7 mg/dL (1.6-2.6); Osmolality,Calculated 272 (275-295); Potassium 3.8 mMol/L (3.4-5.1); Sodium 134 mMol/L (136-145); Total Protein 5.4 gm/dL (5.7-8.2); eGFR 30 See Note
[2024-05-01 08:00] VITALS: BP 139/79; PULSE 99; RESP 16; TEMP 36.6; O2SAT 96
[2024-05-01 08:22] LABS: Phosphorous 3.5 mg/dL (2.4-5.1)
[2024-05-01 08:34] VITALS: BP 139/79; PULSE 99
[2024-05-01] MEDS: amLODIPine BESYLATE 5 MG TABLET 10 MG PO (08:34)
--- NOTE | 2024-05-01 08:42 | PC.CM ---
I called Dr. Elias and asked if patient was still medically stable for discharge. He stated patient is stable. I asked that he discharge patient this morning because patient will be seen by home health today.
[2024-05-01] MEDS: HEPARIN SOD LOCK SYR 100 UNIT/ML 600 UNIT INTRACATH (11:33)
--- NOTE | 2024-05-01 11:35 | PC.NURSE ---
Administered 10 mL Normal saline through Implanted Port, then 6 mL Heparin and Deaccessed Port from patient before patient discharge.
[2024-05-01 12:00] VITALS: BP 133/75; PULSE 91; RESP 16; TEMP 36.5; O2SAT 97
--- NOTE | 2024-05-01 16:13 | ESDS_ITS ---
Planned Discharge Date 05/01/24 DS: Providers Provider Date of admission: 04/23/24 17:43 Primary care physician: Brynn Barber PA-C Admitting Provider: Mita Herman DO Attending Provider on Admission: Janeth Elias MD Consults: 04/23/24 17:46 Referral Speech Therapy Routine Comment: 04/24/24 14:25 Consult to Oncology Routine Comment: Consulting Provider: Solomon Mejia 04/25/24 10:18 Consult to Gastroenterology Routine Comment: peg tube placement Consulting Provider: Bro Mrogan 04/26/24 20:03 Referral Registered Dietitian Stat Comment: for feeding and rate, also patient education Attending Provider on DC: Janeth Elias MD Discharging Provider: Truong Eaton MD DS: Diagnosis Problem List Completed Was Problem List Reviewed/Reconciled?: Yes Hospital Course Hospital Course Hospital course: 58 y/o F with PMHx significant for hypertension, hypothyroidism, tonsillar cancer receiving active treatment with radiation and chemotherapy with Dr. Mejia presents to ED from home with chief complaint of nausea vomiting with poor p.o. intake x 4 days. Patient had acute renal failure due to dehydration, treated with IV fluids. Despite antiemetics, patient continued to have intractable nausea and vomiting, unable to tolerate p.o. intake. Engaged in shared decision maker the patient who elected to have a PEG tube placed for feeds. PEG tube placed without incident, patient tolerated tube feeds well. Patient cleared for discharge from GI perspective. Patient medically stable and cleared for discharge. Discharge plan: All questions were answered recommendation were given to come at the ED at any time if she is not feeling well Follow-up with PCP 5 to 7 days after discharge follow-up with CBC and CMP by PCP in 1 week and if kidney function does not improve will recommend follow-up and referral with nephrology Follow-up with oncology 1 week after discharge Continue home medications Started amlodipine 10 mg p.o. daily Ondansetron 4 mg p.o. every 6 hours as needed for nausea and vomiting Reglan 5 mg p.o. every 8 hours as needed for nausea and vomiting Do not take ondansetron and Reglan on the same day [place] 5/325 tablet p.o. every 6 hours as needed for pain Discontinue lisinopril Diagnoses: #Acute renal failure secondary to dehydration, resolved #Intractable nausea/vomiting, resolved #Refeeding syndrome #Tonsillar cancer, active treatments radiation/chemotherapy #Suspected depression #Hypertension #Hypothyroidism Plan of care discussed with attending Dr. Elias. Truong Eaton MD PGY?1 Time Spent with Patient Time attestation: Total time spent providing and/or coordinating discharge services: Exam Vital Signs Temp Pulse Resp BP Pulse Ox O2 Del Method O2 Flow Rate 97.7 F 91 16 133/75 H 97 Room Air 3 05/01/24 12:05/01/24 12:05/01/24 12:05/01/24 12:05/01/24 12:05/01/24 12:04/27/24 16:00 Narrative Exam PE: Gen: Well-developed and well-nourished. HEENT: NCAT, PERRLA, EOMI, anicteric conjunctivae. CVS: normal S1 and S2. RRR. No M/R/G. Resp: CTA B/L. No rhonchi, rales, crackles or wheezing. Abd: soft, non-tender, non-distended. PEG tube placed, nontender, no leakage. MSK: Good ROM in BUE & BLE. No edema or rash. Neuro: CN II-XII grossly intact. Strength 5/5 in BUE & BLE. Alert and oriented x3. Psych: appropriate mood and affect. Discharge Plan Plan Patient Disposition: Home w/HOME HEALTH Patient condition on transfer: Stable Care Plan Goals: All questions were answered recommendation were given to come at the ED at any time if she is not feeling well Follow-up with PCP 5 to 7 days after discharge follow-up with CBC and CMP by PCP in 1 week and if kidney function does not improve will recommend follow-up and referral with nephrology Follow-up with oncology 1 week after discharge Continue home medications Started amlodipine 10 mg p.o. daily Ondansetron 4 mg p.o. every 6 hours as needed for nausea and vomiting Reglan 5 mg p.o. every 8 hours as needed for nausea and vomiting Do not take ondansetron and Reglan on the same day [place] 5/325 tablet p.o. every 6 hours as needed for pain Discontinue lisinopril Prescriptions/Referrals Prescriptions/Med Rec: New ondansetron 4 mg tablet,disintegrating 4 mg PO Q8H PRN (Reason: nausea and vomiting) 30 Days Qty: 60 0RF sennosides [senna] 8.6 mg Tablet 8.6 mg PO QDAY PRN (Reason: Constipation) 30 Days Qty: 30 0RF hydrocodone-acetaminophen 5-325 mg Tablet 1 tab PO Q6H MDD 4 tablets PRN (Reason: Pain Scale 4-7(Mod-Sev) 5 Days Qty: 20 0RF amlodipine 5 mg Tablet 10 mg PO QDAY 30 Days Qty: 60 0RF metoclopramide HCl 5 mg tablet 5 mg PO Q8HR PRN (Reason: nausea and vomiting) 30 Days Qty: 30 0RF Continued atorvastatin 10 mg Tablet 10 mg PO QDAY levothyroxine 150 mcg Tablet 150 mcg PO QDAY trazodone 100 mg tablet 100 mg PO DAILY PRN (Reason: insomnia) Patient Comments: TAKE 1 TABLET BY MOUTH EVERY DAY AT BEDTIME Held potassium chloride 20 mEq tablet extended release 20 meq PO DAILY Hold Instructions: until follow up with pcp Patient Comments: TAKE 1 TABLET BY MOUTH EVERY DAY Discontinued magnesium oxide 420 mg Tablet 420 mg PO BID lisinopril 30 mg Tablet 30 mg PO QDAY Referrals: Brynn Barber PA-C [Primary Care Provider] - Patient/Caregiver Discharge Instructions Meds to Beds: No Discharge Activity: activity as tolerated Other Discharge Diet Instructions: Bolus tube feeding recommendations for home: Jevity 1.5 via PEG tube by bolus syringe: 8 oz (1 container) 6x/day?Or 16 oz (2 containers) 3x/day. Flush with 30 ml water before and after feeds. Water flushes of 150 ml every 4 hours (or per MD). Provides: 2130 kcal, 91 g prot, 1080 ml free water, 1422 ml total volume. Education Materials: Understanding PEG Tube Feeding, Dehydration Print Language: Kyrgyz Stand Alone Forms: [facility] Award Info., Patient Portal Info Letter Discharge Order Discharge Orders: Discharge (Routine); Ordered 05/01/24 Ordered By: Janeth Elias Quality Discharge Quality Measures VTE prophylaxis Attestestation Attestation I attest that I was physically present for the evaluation, physical examination, lab and imaging review of the patient with the residents. I discussed the case with the residents and agree with the findings and plans of care as documented above. Janeth Elias MD
== END 2024-05-01 12:30 | disposition home health service (06) | DRG 469 ==
LOC: SERX 16:52 → SERHOLD 18:12 → S3SX 18:52
PROVIDERS: Specialist; Student in an Organized Health Care Education/Training Program; Admitting Provider Internal Medicine; Emergency Provider Emergency Medicine; PCP Physician Assistant Medical; Visit Provider Student in an Organized Health Care Education/Training Program
PROC: 0DH63UZ Insertion of Feeding Device into Stomach, Percutaneous Approach (ICD-10-PCS; CPT 43246; principal; 2024-04-26 18:00)
DX: N17.9 Acute kidney failure, unspecified (principal); E86.0 Dehydration; C09.9 Malignant neoplasm of tonsil, unspecified; I10 Essential (primary) hypertension; E03.9 Hypothyroidism, unspecified; R62.7 Adult failure to thrive; K12.33 Oral mucositis (ulcerative) due to radiation; K59.00 Constipation, unspecified; F41.9 Anxiety disorder, unspecified; R11.2 Nausea with vomiting, unspecified; N27.0 Small kidney, unilateral; Z87.891 Personal history of nicotine dependence; Z79.899 Other long term (current) drug therapy
CPT/HCPCS: 36415; 76770; 80048; 80053; 80069; 81001; 83690; 83735; 84100; 84132; 84484; 85014; 85018; 85025; 92526; 92610; 93005; 96361; 96374; 99285; A4217; A4649; J1200; J1642; J1643; J2250; J2405; J2765; J3010; J3475; J3480; J3490; J7030; J7042; J7050; J7999; Q0162; A9270

== ENCOUNTER 2024-05-16 07:36 | Outpatient (RCR) | payer MEDICAID, SELFPAY ==
--- NOTE | 2024-04-18 09:54 | CTCTRTNOTE_ITS ---
[facility] [address] [place], [place] [address] Weekly Management Date: 04/18/2024 ?? Name: SHEILA LANGE : 1965 A. Patient is currently at 3705 cGy. B. Labs 04/07/2024 WBC 3.8 2000 neutrophils. C. Minimal mucositis.. D. Resume radiation therapy. Electronically signed by: Solomon Mejia M.D. 04/18/2024 9:52 AM
[2024-04-22 12:27] LABS: Basophils % (Auto) 1 % (0-2.5); Eosinophils % (Auto) 0 % (0-10); Hematocrit 30.8 % (36.0-46.0); Hemoglobin 10.8 g/dL (12.0-16.0); Immature Granulocytes % (Auto) 0 % (0-0); Immature Granulocytes Auto 0.02 Thou/mm3 (0.00-0.00); Lymphocytes # (Auto) 0.8 Thou/mm3 (1.0-4.8); Lymphocytes % (Auto) 14 % (10-50); Mean Corpuscular HGB Conc 35.1 g/dl (31.0-37.0); Mean Corpuscular Hemoglobin 31.5 pg (25.0-35.0); Mean Corpuscular Volume 90 fL (80-100); Monocytes # (Auto) 0.5 Thou/mm3 (0.0-0.8); Monocytes % (Auto) 10 % (0-12); Neutrophils # (Auto) 4.1 Thou/mm3 (1.8-7.7); Neutrophils % (Auto) 75 % (37-80); Nucleated Red Blood Cell % 0 /100 WBC (0); Platelet Count 224 Thou/mm3 (140-440); RDW Standard Deviation 51.7 fL (36.4-46.3); Red Blood Count 3.43 Miln/mm3 (4.00-5.20); White Blood Count 5.5 Thou/mm3 (3.6-11.0)
[2024-04-22 12:37] LABS: Alanine Aminotransferase 82 U/L (10-49); Albumin, Serum 4.3 gm/dL (3.5-5.0); Alkaline Phosphatase 81 U/L (46-116); Anion Gap 16 (7-16); Aspartate Amino Transferase 60 U/L (0-34); BUN/Creatinine Ratio 12 Ratio (12-20); Bilirubin,Total 0.4 mg/dL (0.3-1.2); Blood Urea Nitrogen 37 mg/dL (9-23); Calcium 8.5 mg/dL (8.3-10.6); Calcium (Corrected) 8.5 mg/dL (8.5-10.1); Carbon Dioxide 18.8 mMol/L (20.0-31.0); Chloride 104 mMol/L (98-107); Creatinine (Component) 3.1 mg/dL (0.6-1.3); Globulin 2.1 gm/dL (2.3-3.5); Glucose 104 mg/dL (74-106); Osmolality,Calculated 286 (275-295); Potassium 3.2 mMol/L (3.4-5.1); Sodium 139 mMol/L (136-145); Total Protein 6.4 gm/dL (5.7-8.2); eGFR 17 See Note
== END 2024-05-16 23:59 | disposition home or self-care (01) ==
LOC: SCTC 07:36
PROVIDERS: PCP Physician Assistant Medical; Referring Provider Physician Assistant Medical; Visit Provider Internal Medicine Hematology & Oncology
DX: Z51.11 Encounter for antineoplastic chemotherapy (principal); Z51.0 Encounter for antineoplastic radiation therapy; C09.9 Malignant neoplasm of tonsil, unspecified; K12.33 Oral mucositis (ulcerative) due to radiation; Y84.2 Radiological procedure and radiotherapy as the cause of abnormal reaction of the patient, or of later complication, without mention of misadventure at the time of the procedure
CPT/HCPCS: 36591; 77336; 77385; 80053; 85025; 96360; 96367; 96368; 96375; 96413; 96415; A4216; J1100; J1453; J1642; J1940; J2405; J3475; J3480; J3490; J7030; J7040; J7050; J9060; A9270

== ENCOUNTER 2024-06-15 08:59 | Outpatient (RCR) | payer MEDICAID, SELFPAY | END 2024-06-15 23:59 | disposition home or self-care (01) | LOC: SCTC 08:59 | PROVIDERS: PCP Physician Assistant Medical; Referring Provider Physician Assistant Medical; Visit Provider Radiology Therapeutic Radiology | DX: Z51.0 Encounter for antineoplastic radiation therapy (principal); C09.0 Malignant neoplasm of tonsillar fossa; K12.33 Oral mucositis (ulcerative) due to radiation; Y84.2 Radiological procedure and radiotherapy as the cause of abnormal reaction of the patient, or of later complication, without mention of misadventure at the time of the procedure | CPT/HCPCS: 77336; 77385 ==

== ENCOUNTER → 2024-08-30 | Outpatient (CLI) | payer MEDICAID, SELFPAY ==
--- NOTE | 2024-08-30 14:00 | XR_ITS ---
EXAMINATION: PET/CT FUSION SKULL TO THIGH EXAM DATE AND TIME: August 30, 2024 1503 hours Comparison February 18, 2024 INDICATIONS: Diagnosis tonsillar carcinoma restaging post treatment CTDI:vol (mGy) 6.27 DLP: (mGycm) 563.62 PROCEDURE: 16.8 mCi FDG was administered intravenously To allow for distribution and uptake of radiotracer, the patient was allowed to rest quietly in a shielded room. Imaging was performed on an integrated 16-slice PET/CT scanner, with scanning from the skull base to the mid thigh. Serum blood glucose at the time of the injection was measured 106 mg/dL. CT scanning was performed without oral or intravenous contrast material. FINDINGS: Head and Neck: Hypermetabolic tonsillar mass is no longer identified Improvement in left carotid triangle lymphadenopathy, weakly hypermetabolic lymph nodes, 7 mm, 9 mm, 12 mm Chest: There is no rachel hypermetabolism in the chest. There are no pulmonary nodules. Abdomen and Pelvis: There is no rachel hypermetabolism in retroperitoneal or pelvic chains. The spleen is normal in size and FDG avidity. Musculoskeletal: Marrow uptake is within normal range. IMPRESSION: Hypermetabolic tonsillar mass is no longer identified Decrease in extent of metastatic left carotid triangle lymphadenopathy
== END | disposition home or self-care (01) ==
LOC: CDIM 13:37
PROVIDERS: PCP Physician Assistant Medical; Referring Provider Radiology Therapeutic Radiology; Visit Provider Radiology Therapeutic Radiology
DX: R59.0 Localized enlarged lymph nodes (principal); C09.0 Malignant neoplasm of tonsillar fossa
CPT/HCPCS: 78815; A9552

== ENCOUNTER 2024-09-14 09:00 | Outpatient (RCR) | payer MEDICAID, SELFPAY ==
--- NOTE | 2024-12-30 16:33 | CTCFLWUP_ITS ---
[facility] [address] [place], [place] [address] FOLLOW-UP NOTE Date: 09/14/2024 MR#: [id number] Name: SHEILA LANGE : 1965 Account #: ?? Dx: C09.0 Malignant neoplasm of tonsillar fossa Identification . Patient with CA tonsillar fossa T2 N1 HPV positive Completed chemoradiation 06/01/2024. Posttreatment PET 1965 showed good response with hypermetabolic tonsillar mass no longer identified and decreased in extent of metastatic left carotid triangle lymphadenopathy. There was no gross tumor noted in the neck or the oral cavity. I will see patient again in 3 months. Electronically signed by: Solomon Mejia M.D. 12/30/2024 4:30 PM
== END 2024-09-15 23:59 | disposition home or self-care (01) ==
LOC: SCTC 09:00
PROVIDERS: PCP Physician Assistant Medical; Referring Provider Physician Assistant Medical; Visit Provider Radiology Therapeutic Radiology
DX: C09.0 Malignant neoplasm of tonsillar fossa (principal); Z92.3 Personal history of irradiation
CPT/HCPCS: 99213; G0463

== ENCOUNTER 2024-10-18 14:27 | Outpatient (RCR) | payer MEDICAID, SELFPAY ==
--- NOTE | 2024-10-18 15:03 | CTCFLWUP_ITS ---
Patient: SHEILA LANGE : 1965 Page 3 of 5 FOLLOW UP NOTE DATE OF SERVICE: 10/18/2024 NAME: SHEILA LANGE ACCOUNT: [id number] : 1965 AGE: 59 INTERVAL HISTORY: Patient completed radiation and did well. Still have peg tube . not eating by mouth much. ONCOLOGY HISTORY:?[facility] Hx? DIAGNOSIS: Malignant neoplasm of tonsillar fossa [ICD10] C09.0 DATE OF DIAGNOSIS: 11/29/2024 STAGE/TNM: Oral head and knceck cancer ?left tonsillar cancer ?hpv positive PET CT scan on 02/18/2024 IMPRESSION: 20 x 22 mm hypennctabolic left oropharyngcal mass Hypennctabolic lateral left carotid triangle metastatic lymph node mass. 30 mm TREATMENT HISTORY: Care?Plan Start?Date Cycle Day Intent CISplatin?100mg/m*2?with?XRT 02/29/2024 1 21 Curative?(primary) HISTORY OF PRESENT ILLNESS: Patient is 59-year-old woman who has extensive smoking history. Patient started smoking at the age of 14 and quit about 20 years ago that is at the age of 39. She was smoking about a pack a day. She endorses at least 2 sexual partners. She also is diagnosed with herpes infection of the vagina area. She has no personal or family history of similar cancer. Her father and mother both had cancers . Her mother had breast cancer and father had prostate cancer. 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 Advil - 600 mg 2. atorvastatin - 10 mg Daily 3. Emend - 125 mg (1)- 80 mg (2) 1 Pack Daily 4. levothyroxine - 150 mcg/24 h Daily 5. lisinopril - 30 mg Daily 6. potassium chloride - 20 mEq 20 meq Daily 7. traZODone - 100 mg tab?[facility] Meds? Medications Last Reconciled by Sonia Figueroa MA on 05/23/2024 ALLERGIES: No Known Drug Allergies REVIEW OF SYSTEMS: A complete 14-point review of systems was performed and is negative except as noted in interval history. PHYSICAL EXAMINATION:?[facility] PE? VITAL SIGNS: Temperature?98, B/P?145/85, Oxygen?Saturation?97% Weight?152?lbs PAIN: 0 - No pain ECOG Performance Status: 1 - Symptomatic; ambulatory; restricted in strenuous activity GENERAL APPEARANCE: Appears well, in no apparent distress, appropriately interactive. HEENT: Normocephalic, no temporal wasting, normal conjunctiva, no scleral icterus, normal hearing, lips without lesions, neck normal range of motion. CARDIOVASCULAR: Not assessed. PULMONARY: Normal respiratory effort, no respiratory distress or use of accessory muscles, speaking in full sentences, no tachypnea. EXTREMITIES: No pedal edema or cyanosis. SKIN: Normal skin appearance. NEUROLOGIC: Alert and oriented x4. PSHYCHIATRIC: Appropriate affect, mood normal, behavior normal, intact thought and speech. LABORATORY DATA: I have personally reviewed and interpreted each of the patient?s relevant lab tests, abnormal findings are below: Date 04/30/24 05/01/24 ??WHITE?BLOOD?COUNT?(Thou/mm3) 4.3 4.4 ??RED?BLOOD?COUNT?(Miln/mm3) 2.55?L 2.48?L ??HEMOGLOBIN?(gm/dl) 8.1?L 7.9?L ??HEMATOCRIT?(%) 23.0?L 22.1?L ??PLATELET?COUNT?(Thou/mm3) 66?L 105?L ??NEUTROPHILS?%,?AUTO?(%) 71 70 ??LYMPH?%,?AUTO?(%) 20 20 ??NEUTROPHILS,?AUTO?(Thou/mm3) 3.1 3.1 ??GLUCOSE,RANDOM?(mg/dL) ? 106 ??BLOOD?UREA?NITROGEN?(mg/dL) ? 26?H ??CREATININE?(mg/dL) ? 1.90?H ??SODIUM?(mmol/L) ? 134?L ??POTASSIUM?(mmol/L) ? 3.8 ??CHLORIDE?(mmol/L) ? 99 ??CrCl?(CandG)?(ml/min) ? 31.49 ??AST/SGOT?(Unit/L) ? <?8 ??ALT/SGPT?(Unit/L) ? <?7?L ??ALKALINE?PHOSPHATASE?(Unit/L) ? 79 ??BILIRUBIN,?TOTAL?(mg/dL) ? 0.2?L ??PROTEIN?TOTAL?(gm/dl) ? 5.4?L ??ALBUMIN,?SERUM?(gm/dl) ? 3.4?L ??GLOBULIN?(gm/dl) ? 2.0?L ??ALBUMIN/GLOBULIN?RATIO ? 1.7 ??CALCIUM,?SERUM?(mg/dL) ? 8.7 ??CALCIUM?SERUM?(CORRECTED)?(mg/dL) ? 9.2 ??MAGNESIUM?(mg/dL) ? 1.7 ASSESSMENT/PLAN:?Natanael Antonio Assessment/Plan? Head and neck cancer Patient has tumor in the tonsils as well as involvement of the left lymph node Not a surgical candidate Patient completed concurrent chemoradiation with cisplatin No hearing loss Have peg tube still Counselled to take more oral food. Oral hydration Coconut oil to moisturize gums ENT referrel PET/Ct GOOD RESPONSE TO TREATMENT ALFREDO FOR MRD 6 MONTH S ORDERS: Order # Description [id number] Comprehensive Metabolic Panel - 12 + CBC with Auto Diff [id number] MD Follow Up 6 Month RETURN TO CLINIC: I reviewed the diagnosis, prognosis, and recommended treatment/procedure options with the patient (and/or their legal customer service representative teacher), including the potential benefits, risks, side effects and alternative therapies. We also discussed the option of no treatment and the possibility of clinical trial participation, if applicable. All questions were addressed, and they demonstrated understanding. They provided informed consent to proceed with the proposed plan of care. BILLING AND COMPLIANCE: I reviewed external records from providers outside my specialty as summarized above. I spent a total of 50 minutes on this patient?s care on the day of their visit excluding time spent related to any billed procedures. This time includes time spent with the patient as well as time spent documenting in the medical record, reviewing patients records and tests, obtaining history, placing orders, communicating with other healthcare professionals, counseling the patient, family or caregiver, and/or care coordination for the diagnoses above. Electronically Signed by: Keo Antonio MD T: 3:00 PM CC: PCP: Brynn Barber Referring: Brynn Barber This document was completed utilizing speech recognition software. Grammatical errors, random word insertions, pronoun errors, and incomplete sentences are an occasional consequence of this system due to software limitations, ambient noise, and hardware issues. Any formal questions or concerns about the content, text or information contained within the body of this dictation should be directly addressed to the provider for clarification.
== END 2024-11-15 23:59 | disposition home or self-care (01) ==
LOC: SCTC 14:27
PROVIDERS: PCP Physician Assistant Medical; Referring Provider Physician Assistant Medical; Visit Provider Internal Medicine Hematology & Oncology
DX: C09.0 Malignant neoplasm of tonsillar fossa (principal)
CPT/HCPCS: 99212; G0463

== ENCOUNTER 2024-12-15 08:58 | Outpatient (RCR) | payer MEDICAID, SELFPAY ==
--- NOTE | 2024-12-15 09:44 | CTCFLWUP_ITS ---
[facility] [address] [place], [place] [address] FOLLOW-UP NOTE Date: 12/15/2024 MR#: [id number] Name: SHEILA LANGE : 1965 Dx: C09.0 Malignant neoplasm of tonsillar fossa Identification. Patient with stage I T2 N1 p16 positive left tonsillar CA Completed chemoradiation 06/01/2024 6825 cGy via VMAT with concurrent cisplatin. Posttreatment PET 08/30/2024 hypermetabolic 20 x 22 mm tonsillar mass no longer identified with decrease in extent of metastatic left carotid triangle lymphadenopathy. There was a 30 mm left carotid met on pretreatment PET. As I see patient today patient appears well eating largely orally although still has G-tube that she likes to keep along with port in case it may be needed in the future. States that she only uses water for extra hydration via G-tube since she can take regular food satisfactory by mouth. Has not had port flush since finishing chemotherapy. No tumor in the oral cavity noted, slight fullness in the left upper jugular region compared to the right. A#!. 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 A#2. Good response noted on PET scan 08/30/2024. and on clinical exam. A#3. Referred for ENT visit still pending. A#4. Will see her again in 3 months time. Port flush scheduled. Electronically signed by: Solomon Mejia M.D. 12/15/2024 9:42 AM
== END 2024-12-16 23:59 | disposition home or self-care (01) ==
LOC: SCTC 08:58
PROVIDERS: PCP Physician Assistant Medical; Referring Provider Physician Assistant Medical; Visit Provider Radiology Therapeutic Radiology
DX: Z08 Encounter for follow-up examination after completed treatment for malignant neoplasm (principal); Z85.818 Personal history of malignant neoplasm of other sites of lip, oral cavity, and pharynx; Z92.3 Personal history of irradiation; Z92.21 Personal history of antineoplastic chemotherapy
CPT/HCPCS: 99213; G0463

== ENCOUNTER 2025-01-25 08:30 | Outpatient (RCR) | payer MEDICAID, SELFPAY | END 2025-02-15 23:59 | disposition home or self-care (01) | LOC: SCTC 08:30 | PROVIDERS: PCP Physician Assistant Medical; Referring Provider Physician Assistant Medical; Visit Provider Radiology Therapeutic Radiology | DX: C09.0 Malignant neoplasm of tonsillar fossa (principal); Z92.3 Personal history of irradiation; Z92.21 Personal history of antineoplastic chemotherapy | CPT/HCPCS: 36591; A4216; J1642 ==